=== PATIENT | female | born 1955 | race Hispanic/Latino ===

== ENCOUNTER 2020-12-29 10:41 | Inpatient (IN) | payer MEDICARE ==
[~2020-12-29] VITALS: Ht 152.4 cm; Wt 110.9 kg
[2020-12-29 11:13] LABS: CREATININE 0.8 mg/dL (0.5-1.5); POTASSIUM 3.6 mmol/L (3.5-5.1)
[2020-12-29 11:18] LABS: ALBUMIN 2.8 g/dL (3.5-5.0); BILIRUBIN,TOTAL 0.4 mg/dL (0.2-1.0); TOTAL PROTEIN, SERUM 7.8 g/dL (6.0-8.3)
[2020-12-29 11:21] LABS: BASOPHILS % (AUTO) 0.5 % (0.0-5.0); HEMATOCRIT 41.1 % (36-48); LYMPHOCYTES % (AUTO) 25.4 % (21.0-51.0); MEAN CORPUSCULAR HGB CONC 32.8 g/dL (32.0-36.0); MEAN CORPUSCULAR VOLUME 82.2 fL (79-99); MONOCYTES % (AUTO) 10.8 % (3.0-13.0); NEUTROPHILS % (AUTO) 61.7 % (40.0-77.0); PLATELET COUNT (AUTO) 206 K/uL (130-400); RED CELL DISTRIBUTION WIDTH 15.1 % (11.0-15.5); WHITE BLOOD COUNT (AUTO) 6.3 K/uL (4.8-10.8)
[2020-12-29 11:22] LABS: ABG BASE EXCESS -4.7 mmol/L (-2.0-3.0); ABG HCO3 18.4 mmol/L (21.0-28.0); ABG OXYGEN SATURATION 80.3 % (95.0-99.0); ABG PCO2 29 mmHg (32-45)
[2020-12-29 11:25] LABS: CRP QUANTITATIVE 243.2 mg/L (0.00-9.0)
[2020-12-29] MEDS ORDERED: CEFTRIAXONE 1G VIAL 1 GM in 0.9%NACL 100ML 100 ML IV ONE (12:00)
[2020-12-29] MEDS ORDERED: SOLU-MEDROL 125MG VIAL IVP ONE (12:00)
[2020-12-29] MEDS ORDERED: CEFTRIAXONE 1G VIAL IVP SCH (12:30)
[2020-12-29] MEDS ORDERED: 0.9%NACL 50ML 50 ML IV ONE (12:36)
[2020-12-29] MEDS ORDERED: SODIUM BICARB 8.4% 50ML SYRINGE IVP ONE (12:41)
[2020-12-29] MEDS ORDERED: AMIODARONE 150MG VIAL IV ONE (12:41)
[2020-12-29] MEDS ORDERED: EPINEPHRINE 1MG SYG 10ML IVP ONE (12:41)
[2020-12-29] MEDS: ALBUTEROL INHALER 90MCG/INH IH SCH ×2 (12:48→19:00)
[2020-12-29 13:40] LABS: CRP QUANTITATIVE 208.2 mg/L (0.00-9.0)
[2020-12-29] MEDS ORDERED: ENOXAPARIN SODIUM 40 MG/0.4 ML SYRINGE SQ SCH (14:04)
[2020-12-29] MEDS: INSULIN R PO SS1 SQ SCH ×2 (16:30→20:49)
[2020-12-29] MEDS ORDERED: SEMA3TAB PO (16:33)
[2020-12-29] MEDS ORDERED: LUTE1CAP6 PO (16:33)
[2020-12-29] MEDS ORDERED: [UNRECOGNIZED DRUG - CODE] PO (16:37)
[2020-12-29] MEDS ORDERED: MECO10005 PO (16:39)
[2020-12-29] MEDS ORDERED: ALBU8.5H8 IH (16:41)
[2020-12-29] MEDS ORDERED: CALC-28 PO (16:44)
[2020-12-29] MEDS ORDERED: EMPA10TA PO (16:45)
[2020-12-29] MEDS ORDERED: LEVO125C4 PO (16:46)
[2020-12-29] MEDS ORDERED: TAMO20TA4 (16:47)
[2020-12-29] MEDS ORDERED: OMEP40CA21 PO (16:48)
[2020-12-29] MEDS: DOXYCYCLINE HYCLATE 100 MG TABLET PO SCH (20:48)
[2020-12-29] MEDS ORDERED: SOLU-MEDROL 40MG VIAL IVP SCH (21:00)
[2020-12-29] MEDS: AZTREONAM 1 GM VIAL IVP SCH (21:19)
[2020-12-29 21:52] VITALS: BP 118/69
[2020-12-29] MEDS ORDERED: AEC81 PO (22:00)
[2020-12-29 23:19] VITALS: BP 124/67
[2020-12-30] VITALS (13 sets, daily range): BP systolic 106–146; BP diastolic 60–81
[2020-12-30] MEDS: ALBUTEROL INHALER 90MCG/INH IH SCH ×6 (01:18→18:36)
[2020-12-30] MEDS: AZTREONAM 1 GM VIAL IVP SCH ×3 (04:00→20:50)
[2020-12-30 04:40] LABS: BASOPHILS % (AUTO) 0.7 % (0.0-5.0); HEMATOCRIT 41.6 % (36-48); LYMPHOCYTES % (AUTO) 20.6 % (21.0-51.0); MEAN CORPUSCULAR HEMOGLOBIN 26.6 pg (27.0-33.0); MEAN CORPUSCULAR HGB CONC 32.7 g/dL (32.0-36.0); MEAN CORPUSCULAR VOLUME 81.4 fL (79-99); MONOCYTES % (AUTO) 6.7 % (3.0-13.0); NEUTROPHILS % (AUTO) 68.8 % (40.0-77.0); PLATELET COUNT (AUTO) 228 K/uL (130-400); RED BLOOD CELL COUNT(AUTO) 5.11 MIL/uL (4.00-5.50); WHITE BLOOD COUNT (AUTO) 5.5 K/uL (4.8-10.8)
[2020-12-30 04:47] LABS: CREATININE 0.9 mg/dL (0.5-1.5); MAGNESIUM 2.1 mg/dL (1.80-2.40); POTASSIUM 3.8 mmol/L (3.5-5.1)
[2020-12-30 04:49] LABS: HEMOGLOBIN A1C 9.4 % (4.0-6.0)
[2020-12-30] MEDS: INSULIN R PO SS1 SQ SCH ×4 (06:26→21:00)
[2020-12-30] MEDS ORDERED: IOHEXOL-350 75 ML VIAL IV ONE (08:15)
[2020-12-30] MEDS: SODIUM BICARB 50MEQ 50ML VIAL IV SCH (08:44)
[2020-12-30] MEDS: LEVOTHYROXINE 125 MCG TABLET PO SCH (08:45)
[2020-12-30] MEDS: DOXYCYCLINE HYCLATE 100 MG TABLET PO SCH ×2 (08:45→20:52)
[2020-12-30] MEDS: ASPIRIN 81 MG EC TAB PO SCH (08:45)
[2020-12-30] MEDS: ENOXAPARIN SODIUM 40 MG/0.4 ML SYRINGE SQ SCH ×2 (08:46→20:54)
[2020-12-30] MEDS ORDERED: SOLU-MEDROL 125MG VIAL IVP SCH (09:00)
[2020-12-30] MEDS ORDERED: FAMOTIDINE 20MG VIAL IV SCH (09:00)
[2020-12-30 09:59] LABS: ABG BASE EXCESS -7.9 mmol/L (-2.0-3.0); ABG HCO3 15.7 mmol/L (21.0-28.0); ABG OXYGEN SATURATION 86.4 % (95.0-99.0); ABG PCO2 28 mmHg (32-45)
[2020-12-30] MEDS ORDERED: SIMV-46 PO (11:14)
[2020-12-30] MEDS ORDERED: SERT-439 PO (11:14)
[2020-12-30] MEDS ORDERED: MONT-39 PO (11:14)
[2020-12-30] MEDS ORDERED: LISI10TA24 PO (11:14)
[2020-12-30] MEDS ORDERED: CLON0.1T PO (11:14)
[2020-12-30] MEDS ORDERED: GEMF600T89 PO (11:14)
[2020-12-30] MEDS ORDERED: HYDR50TA PO (11:14)
[2020-12-30] MEDS ORDERED: PHARMACY COMMUNICATION**TOCI MISC SCH (12:30)
[2020-12-30 12:51] LABS: POTASSIUM 3.8 mmol/L (3.5-5.1)
[2020-12-30] MEDS ORDERED: SODIUM BICARB 50MEQ 50ML VIAL IV STA (14:15)
[2020-12-30] MEDS: BARICITINIB (EUA) 2 MG TABLET PO SCH (14:33)
[2020-12-30] MEDS: FAMOTIDINE 20MG TAB PO SCH (14:33)
[2020-12-30] MEDS ORDERED: GUAIFENESIN-DM 200/20 MG 10 ML PO PRN (16:00)
[2020-12-30] MEDS ORDERED: BENZONATATE 100 MG CAPSULE PO SCH (16:00)
[2020-12-30] MEDS: INSULIN REGULAR, HUMAN 3ML 100 UNIT in 0.9%NACL 100ML 99 ML IV PRN ×6 (16:43→18:37)
[2020-12-30 17:54] LABS: POTASSIUM 3.8 mmol/L (3.5-5.1)
[2020-12-30] MEDS: CLONIDINE HCL 0.1 MG TABLET PO SCH (20:52)
[2020-12-30] MEDS: GEMFIBROZIL 600 MG TABLET PO SCH (20:52)
[2020-12-30] MEDS: SIMVASTATIN 20 MG TABLET PO SCH (20:53)
[2020-12-30] MEDS: INSULIN GLARGINE 100 UNITS/ML 10 ML VIAL SQ SCH (21:00)
[2020-12-30] MEDS ORDERED: METOCLOPRAMIDE 10 MG/2 ML VIAL ONE (21:53)
[2020-12-30] MEDS: BENZONATATE 100 MG CAPSULE PO SCH (23:11)
[2020-12-30] MEDS: SOLU-MEDROL 125MG VIAL IVP SCH (23:11)
[2020-12-30] MEDS: METOCLOPRAMIDE 10 MG/2 ML VIAL IVP SCH (23:18)
[2020-12-31] VITALS (15 sets, daily range): BP systolic 109–159; BP diastolic 57–89
[2020-12-31] MEDS ORDERED: METOCLOPRAMIDE 10 MG/2 ML VIAL IVP SCH
[2020-12-31 01:05] LABS: CREATININE 0.9 mg/dL (0.5-1.5); POTASSIUM 3.5 mmol/L (3.5-5.1)
[2020-12-31] MEDS: AZTREONAM 1 GM VIAL IVP SCH ×3 (04:07→20:06)
[2020-12-31 05:49] LABS: BASOPHILS % (AUTO) 0.3 % (0.0-5.0); HEMATOCRIT 39.8 % (36-48); LYMPHOCYTES % (AUTO) 12.5 % (21.0-51.0); MEAN CORPUSCULAR HEMOGLOBIN 26.8 pg (27.0-33.0); MEAN CORPUSCULAR HGB CONC 33.2 g/dL (32.0-36.0); MEAN CORPUSCULAR VOLUME 80.9 fL (79-99); NEUTROPHILS % (AUTO) 78.4 % (40.0-77.0); PLATELET COUNT (AUTO) 282 K/uL (130-400); RED BLOOD CELL COUNT(AUTO) 4.92 MIL/uL (4.00-5.50); WHITE BLOOD COUNT (AUTO) 10.8 K/uL (4.8-10.8)
[2020-12-31 06:07] LABS: ALBUMIN 2.4 g/dL (3.5-5.0); BILIRUBIN,TOTAL 0.4 mg/dL (0.2-1.0); CREATININE 0.8 mg/dL (0.5-1.5); CRP QUANTITATIVE 115.3 mg/L (0.00-9.0); POTASSIUM 3.8 mmol/L (3.5-5.1); TOTAL PROTEIN, SERUM 7.3 g/dL (6.0-8.3)
[2020-12-31] MEDS: BENZONATATE 100 MG CAPSULE PO SCH ×3 (06:18→20:06)
[2020-12-31] MEDS: ALBUTEROL INHALER 90MCG/INH IH SCH ×4 (06:18→18:00)
[2020-12-31] MEDS: SOLU-MEDROL 125MG VIAL IVP SCH ×2 (06:19→13:04)
[2020-12-31] MEDS: INSULIN R PO SS1 SQ SCH (06:19)
[2020-12-31] MEDS: METOCLOPRAMIDE 10 MG/2 ML VIAL IVP SCH ×3 (06:19→17:41)
[2020-12-31] MEDS: INSULIN GLARGINE 100 UNITS/ML 10 ML VIAL SQ SCH (06:20)
[2020-12-31] MEDS: SODIUM BICARB 50MEQ 50ML VIAL IV SCH (06:53)
[2020-12-31] MEDS: DOXYCYCLINE HYCLATE 100 MG TABLET PO SCH ×2 (08:01→20:07)
[2020-12-31] MEDS: SERTRALINE HCL 50 MG TABLET PO SCH (08:01)
[2020-12-31] MEDS: LEVOTHYROXINE 125 MCG TABLET PO SCH (08:01)
[2020-12-31] MEDS: ASPIRIN 81 MG EC TAB PO SCH (08:01)
[2020-12-31] MEDS: LISINOPRIL 10 MG TABLET PO SCH (08:01)
[2020-12-31] MEDS: MONTELUKAST SODIUM 10 MG TAB PO SCH (08:01)
[2020-12-31] MEDS: METOPROLOL TARTRATE 1 MG/ML 5ML VIAL IV PRN ×2 (08:02→11:55)
[2020-12-31] MEDS: FAMOTIDINE 20MG TAB PO SCH (08:02)
[2020-12-31] MEDS: CLONIDINE HCL 0.1 MG TABLET PO SCH ×2 (08:02→20:07)
[2020-12-31] MEDS: ENOXAPARIN SODIUM 40 MG/0.4 ML SYRINGE SQ SCH ×2 (08:02→20:08)
[2020-12-31] MEDS: BARICITINIB (EUA) 2 MG TABLET PO SCH (08:25)
[2020-12-31] MEDS: GEMFIBROZIL 600 MG TABLET PO SCH ×2 (08:25→20:08)
[2020-12-31] MEDS ORDERED: INSULIN HUMULIN R 100 UNIT/ML 3ML SQ SCH (11:30)
[2020-12-31 12:12] LABS: CREATININE 0.8 mg/dL (0.5-1.5); POTASSIUM 3.6 mmol/L (3.5-5.1)
[2020-12-31] MEDS: DIAZEPAM 5 MG TABLET PO PRN (15:03)
[2020-12-31] MEDS ORDERED: INSULIN GLARGINE 100 UNITS/ML 10 ML VIAL SQ SCH (16:30)
[2020-12-31 18:22] LABS: CREATININE 0.8 mg/dL (0.5-1.5)
[2020-12-31] MEDS: SIMVASTATIN 20 MG TABLET PO SCH (20:07)
[2020-12-31] MEDS ORDERED: SOLU-MEDROL 40MG VIAL IVP SCH (21:00)
[2021-01-01] VITALS (44 sets, daily range): BP systolic 64–157; BP diastolic 26–117
[2021-01-01] MEDS: METOCLOPRAMIDE 10 MG/2 ML VIAL IVP SCH ×4 (00:33→17:55)
[2021-01-01] MEDS: ALBUTEROL INHALER 90MCG/INH IH SCH ×4 (00:33→17:51)
[2021-01-01] MEDS: DIAZEPAM 5 MG TABLET PO PRN (01:02)
[2021-01-01] MEDS ORDERED: MIDAZOLAM HCL 1 MG/ML 2ML VIAL ONE (02:20)
[2021-01-01] MEDS ORDERED: FENTANYL CITRATE PF 50 MCG/1 ML 5ML AMP IV ONE (02:23)
[2021-01-01] MEDS ORDERED: FENTANYL CITRATE PF 50 MCG/1 ML 2ML VIAL ONE (02:25)
[2021-01-01] MEDS ORDERED: AMIODARONE 150MG VIAL ONE ×2 (02:27→04:48)
[2021-01-01] MEDS ORDERED: AMIODARONE 900MG VIAL IV ONE (02:28)
[2021-01-01 02:41] LABS: ABG BASE EXCESS -1.5 mmol/L (-2.0-3.0); ABG HCO3 24.3 mmol/L (21.0-28.0); ABG PCO2 45 mmHg (32-45)
[2021-01-01 02:53] LABS: BASOPHILS % (AUTO) 0.5 % (0.0-5.0); HEMATOCRIT 42.4 % (36-48); LYMPHOCYTES % (AUTO) 29.4 % (21.0-51.0); MEAN CORPUSCULAR HEMOGLOBIN 27.1 pg (27.0-33.0); MEAN CORPUSCULAR HGB CONC 32.5 g/dL (32.0-36.0); MEAN CORPUSCULAR VOLUME 83.1 fL (79-99); MONOCYTES % (AUTO) 7.2 % (3.0-13.0); NEUTROPHILS % (AUTO) 59.3 % (40.0-77.0); PLATELET COUNT (AUTO) 341 K/uL (130-400); WHITE BLOOD COUNT (AUTO) 24.2 K/uL (4.8-10.8)
[2021-01-01] MEDS ORDERED: AMIODARONE 900MG VIAL 150 MG in DEXTROSE 5%-WATER 100 ML IV SCH (03:00)
[2021-01-01] MEDS ORDERED: AMIODARONE 900MG VIAL 900 MG in DEXTROSE 5%-WATER 500 ML IV SCH (03:00)
[2021-01-01] MEDS ORDERED: FENTANYL 2500MCG+NS 250ML 250 ML IV ONE (03:02)
[2021-01-01] MEDS ORDERED: NOREPINEPHRIN 4MG/NS 250ML 250 ML IV ONE (03:08)
[2021-01-01 03:20] LABS: ALBUMIN 2.5 g/dL (3.5-5.0); BILIRUBIN,TOTAL 0.5 mg/dL (0.2-1.0); CREATININE 1.2 mg/dL (0.5-1.5); CRP QUANTITATIVE 66.3 mg/L (0.00-9.0); MAGNESIUM 2.4 mg/dL (1.80-2.40); PHOSPHORUS 3.5 mg/dL (2.5-4.9); POTASSIUM 3.6 mmol/L (3.5-5.1); TOTAL PROTEIN, SERUM 7.1 g/dL (6.0-8.3)
[2021-01-01] MEDS: AZTREONAM 1 GM VIAL IVP SCH ×3 (04:00→21:06)
[2021-01-01] MEDS ORDERED: DOPAMINE HCL 400 MG/D5%-WATER 250 ML IV ONE (05:43)
[2021-01-01] MEDS ORDERED: DOPAMINE 800MG/D5 250ML 250 ML IV ONE (05:44)
[2021-01-01] MEDS ORDERED: PHENYLEPHRINE HCL 10 MG/ML 1ML VIAL IV ONE (05:50)
[2021-01-01] MEDS ORDERED: NOREPINEPHRINE BITARTRATE 1 MG/1 ML ML IV ONE (05:51)
[2021-01-01] MEDS ORDERED: VASOPRESSIN 20 UNITS/ML 1ML VIAL ONE (06:00)
[2021-01-01] MEDS: BENZONATATE 100 MG CAPSULE PO SCH ×3 (06:00→22:00)
[2021-01-01] MEDS ORDERED: 0.9%NACL 100ML 100 ML ONE (06:01)
[2021-01-01 06:18] LABS: HEMATOCRIT 38.9 % (36-48); MEAN CORPUSCULAR HEMOGLOBIN 26.9 pg (27.0-33.0); MEAN CORPUSCULAR HGB CONC 30.3 g/dL (32.0-36.0); MEAN CORPUSCULAR VOLUME 88.6 fL (79-99); NUCLEATED RED BLOOD CELLS 0.1 % (0.0-0.19); PLATELET COUNT (AUTO) 255 K/uL (130-400); RED BLOOD CELL COUNT(AUTO) 4.39 MIL/uL (4.00-5.50); RED CELL DISTRIBUTION WIDTH 15.7 % (11.0-15.5); WHITE BLOOD COUNT (AUTO) 22.2 K/uL (4.8-10.8)
[2021-01-01 06:41] LABS: ALBUMIN 1.9 g/dL (3.5-5.0); BILIRUBIN,TOTAL 0.8 mg/dL (0.2-1.0); CREATININE 1.2 mg/dL (0.5-1.5); POTASSIUM 4.1 mmol/L (3.5-5.1); TOTAL PROTEIN, SERUM 6.2 g/dL (6.0-8.3)
[2021-01-01] MEDS: NOREPINEPHRIN 4MG/NS 250ML 250 ML IV SCH ×4 (06:58→08:10)
[2021-01-01] MEDS: PHENYLEPHRINE HCL 50 MG in 0.9% NACL 250ML 245 ML IV PRN ×6 (08:13→23:32)
[2021-01-01] MEDS: DOXYCYCLINE HYCLATE 100 MG TABLET PO SCH ×2 (08:32→21:16)
[2021-01-01] MEDS: ASPIRIN 81 MG EC TAB PO SCH (08:32)
[2021-01-01] MEDS: GEMFIBROZIL 600 MG TABLET PO SCH ×2 (08:32→21:39)
[2021-01-01] MEDS: MONTELUKAST SODIUM 10 MG TAB PO SCH (08:32)
[2021-01-01] MEDS: BARICITINIB (EUA) 2 MG TABLET PO SCH (08:32)
[2021-01-01] MEDS: SERTRALINE HCL 50 MG TABLET PO SCH (08:33)
[2021-01-01] MEDS: FAMOTIDINE 20MG TAB PO SCH (08:33)
[2021-01-01] MEDS: LEVOTHYROXINE 125 MCG TABLET PO SCH (08:33)
[2021-01-01] MEDS: LISINOPRIL 10 MG TABLET PO SCH (08:37)
[2021-01-01] MEDS: CLONIDINE HCL 0.1 MG TABLET PO SCH ×2 (08:37→21:00)
[2021-01-01] MEDS: INSULIN GLARGINE 100 UNITS/ML 10 ML VIAL SQ SCH ×2 (08:37→16:26)
[2021-01-01] MEDS: ENOXAPARIN SODIUM 40 MG/0.4 ML SYRINGE SQ SCH ×2 (08:38→21:06)
[2021-01-01] MEDS: SODIUM BICARB 50MEQ 50ML VIAL IV SCH (08:57)
[2021-01-01] MEDS ORDERED: METOPROLOL TARTRATE 25 MG TAB PO SCH (09:00)
[2021-01-01] MEDS ORDERED: PHARMACY COMMUNICATION MISC SCH ×3 (09:00→13:00)
[2021-01-01] MEDS: NOREPINEPHRINE BITARTRATE 32 MG in 0.9% NACL 250ML 250 ML IV SCH (10:04)
[2021-01-01] MEDS ORDERED: SOLU-MEDROL 125MG VIAL IM ONE (10:30)
[2021-01-01] MEDS: VASOPRESSIN 20 UNITS in 0.9%NACL 100ML 100 ML IV SCH ×2 (10:44→21:09)
[2021-01-01] MEDS ORDERED: LACTATED RINGERS 1000ML 2,000 ML IV ONE (11:15)
[2021-01-01] MEDS: LACTATED RINGERS 1000ML 1,500 ML IV SCH ×2 (11:30→11:54)
[2021-01-01] MEDS: LACTATED RINGERS 1000ML 1,365 ML IV SCH (11:53)
[2021-01-01] MEDS: INSULIN REGULAR, HUMAN 3ML 100 UNIT in 0.9%NACL 100ML 99 ML IV SCH ×2 (11:55)
[2021-01-01 12:22] LABS: ABG BASE EXCESS -16.6 mmol/L (-2.0-3.0); ABG HCO3 11.3 mmol/L (21.0-28.0); ABG OXYGEN SATURATION 99.2 % (95.0-99.0); ABG PCO2 34 mmHg (32-45)
[2021-01-01] MEDS ORDERED: SODIUM BICARB 50MEQ 50ML VIAL IV SCH (13:00)
[2021-01-01] MEDS: SODIUM BICARB 50MEQ 50ML VIAL 150 MEQ in DEXTROSE 5%-WATER 1,000 ML IV SCH ×2 (13:06→21:16)
[2021-01-01 13:48] LABS: CREATININE 1.7 mg/dL (0.5-1.5); POTASSIUM 3.3 mmol/L (3.5-5.1)
[2021-01-01 14:32] LABS: ABG BASE EXCESS -3.4 mmol/L (-2.0-3.0); ABG HCO3 18.8 mmol/L (21.0-28.0); ABG OXYGEN SATURATION 98.1 % (95.0-99.0); ABG PCO2 27 mmHg (32-45)
[2021-01-01] MEDS ORDERED: LACTATED RINGERS 1000ML 909 ML IV ONE (15:00)
[2021-01-01] MEDS ORDERED: AMIODARONE 150MG VIAL 150 MG in DEXTROSE 5%-WATER 100 ML IV SCH (15:00)
[2021-01-01] MEDS: PROPOFOL 1000 MG/100 ML 100 ML IV SCH ×2 (16:30→23:31)
[2021-01-01 18:23] LABS: CREATININE 1.7 mg/dL (0.5-1.5); MAGNESIUM 1.7 mg/dL (1.80-2.40)
[2021-01-01 18:25] LABS: POTASSIUM 2.9 mmol/L (3.5-5.1)
[2021-01-01] MEDS: POTASSIUM CHLORIDE 20MEQ/100ML 100 ML IV PRN ×3 (18:49→22:51)
[2021-01-01] MEDS: MAGNESIUM 2GM PREMIX 50ML 50 ML IV PRN (18:50)
[2021-01-01] MEDS: SOLU-MEDROL 40MG VIAL IVP SCH (21:07)
[2021-01-01] MEDS: SIMVASTATIN 20 MG TABLET PO SCH (21:15)
[2021-01-01 21:40] LABS: CREATININE 1.5 mg/dL (0.5-1.5); MAGNESIUM 2.3 mg/dL (1.80-2.40)
[2021-01-01 21:44] LABS: POTASSIUM 2.9 mmol/L (3.5-5.1)
[2021-01-01] MEDS ORDERED: ASPIRIN 325MG TAB PO ONE (23:00)
[2021-01-01] MEDS: D5W-1/2 NS/20MEQ KCL 1,000 ML IV SCH (23:00)
[2021-01-02] VITALS (36 sets, daily range): BP systolic 91–134; BP diastolic 59–91
[2021-01-02] MEDS: METOPROLOL TARTRATE 25 MG TAB PO SCH ×3 (00:30→11:36)
[2021-01-02] MEDS: METOCLOPRAMIDE 10 MG/2 ML VIAL IVP SCH ×4 (00:33→17:08)
[2021-01-02] MEDS: POTASSIUM CHLORIDE 20MEQ/100ML 100 ML IV PRN ×4 (00:33→09:39)
[2021-01-02] MEDS: NOREPINEPHRINE BITARTRATE 32 MG in 0.9% NACL 250ML 250 ML IV SCH (00:36)
[2021-01-02] MEDS ORDERED: METOPROLOL TARTRATE 25 MG TAB ONE (00:52)
[2021-01-02] MEDS ORDERED: ASPIRIN 325MG TAB ONE (00:52)
[2021-01-02 01:20] LABS: HEMATOCRIT 40.3 % (36-48); MEAN CORPUSCULAR HGB CONC 33.7 g/dL (32.0-36.0); MEAN CORPUSCULAR VOLUME 80.1 fL (79-99); NUCLEATED RED BLOOD CELLS 0.2 % (0.0-0.19); RED BLOOD CELL COUNT(AUTO) 5.03 MIL/uL (4.00-5.50); RED CELL DISTRIBUTION WIDTH 15.3 % (11.0-15.5); WHITE BLOOD COUNT (AUTO) 25.9 K/uL (4.8-10.8)
[2021-01-02 01:32] LABS: CREATININE 1.4 mg/dL (0.5-1.5); MAGNESIUM 2.2 mg/dL (1.80-2.40); POTASSIUM 3.9 mmol/L (3.5-5.1)
[2021-01-02 01:53] LABS: APPEARANCE,URINE Cloudy (CLEAR); BILIRUBIN,URINE Negative (NEGATIVE); COLOR,URINE Yellow (YELLOW); GLUCOSE, URINE (UA) >=1000 mg/dL (NEGATIVE); KETONES,URINE Trace mg/dL (NEGATIVE); LEUKOCYTE ESTERASE ,URINE Negative (NEGATIVE); NITRATE,URINE Negative (NEGATIVE); OCCULT BLOOD,URINE Moderate (NEGATIVE); PROTEIN,URINE POS 1+ mg/dL (NEGATIVE); UROBILINOGEN,URINE 0.2 mg/dL (0.2-1.0)
[2021-01-02 02:02] LABS: BACTERIA,URINE Rare /HPF (None Seen); SQUAMOUS EPITHELIAL CELL,UR Rare /HPF (0-2); WBC,URINE 0-1 /HPF (0-1); YEAST,URINE BUDDING Rare /HPF (None Seen)
[2021-01-02] MEDS: ALBUTEROL INHALER 90MCG/INH IH SCH ×5 (03:19→21:46)
[2021-01-02] MEDS: AZTREONAM 1 GM VIAL IVP SCH ×3 (03:28→20:17)
[2021-01-02] MEDS: PHENYLEPHRINE HCL 50 MG in 0.9% NACL 250ML 245 ML IV PRN ×4 (03:54→16:52)
[2021-01-02] MEDS: SODIUM BICARB 50MEQ 50ML VIAL 150 MEQ in DEXTROSE 5%-WATER 1,000 ML IV SCH (04:23)
[2021-01-02] MEDS: PROPOFOL 1000 MG/100 ML 100 ML IV SCH ×2 (04:49→08:59)
[2021-01-02 04:54] LABS: BASOPHILS % (AUTO) 0.6 % (0.0-5.0); EOSINOPHILS % (AUTO) 0.4 % (0.0-8.0); HEMATOCRIT 39.7 % (36-48); LYMPHOCYTES % (AUTO) 8.4 % (21.0-51.0); MEAN CORPUSCULAR HEMOGLOBIN 26.8 pg (27.0-33.0); MEAN CORPUSCULAR HGB CONC 33.5 g/dL (32.0-36.0); MEAN CORPUSCULAR VOLUME 79.9 fL (79-99); MONOCYTES % (AUTO) 3.3 % (3.0-13.0); NUCLEATED RED BLOOD CELLS 0.2 % (0.0-0.19); PLATELET COUNT (AUTO) 389 K/uL (130-400); RED BLOOD CELL COUNT(AUTO) 4.97 MIL/uL (4.00-5.50); RED CELL DISTRIBUTION WIDTH 15.2 % (11.0-15.5); WHITE BLOOD COUNT (AUTO) 22.7 K/uL (4.8-10.8)
[2021-01-02 05:25] LABS: ALBUMIN 1.9 g/dL (3.5-5.0); BILIRUBIN,TOTAL 0.8 mg/dL (0.2-1.0); CREATININE 1.3 mg/dL (0.5-1.5); POTASSIUM 3.1 mmol/L (3.5-5.1)
[2021-01-02 05:29] LABS: ABG BASE EXCESS 9.7 mmol/L (-2.0-3.0); ABG HCO3 32.1 mmol/L (21.0-28.0); ABG OXYGEN SATURATION 89.1 % (95.0-99.0); ABG PCO2 36 mmHg (32-45)
[2021-01-02] MEDS: BENZONATATE 100 MG CAPSULE PO SCH ×4 (06:00→21:47)
[2021-01-02] MEDS: VASOPRESSIN 20 UNITS in 0.9%NACL 100ML 100 ML IV SCH ×2 (06:23→13:58)
[2021-01-02] MEDS: CLONIDINE HCL 0.1 MG TABLET PO SCH ×2 (07:26→20:18)
[2021-01-02] MEDS: ASPIRIN 81 MG EC TAB PO SCH ×2 (07:26→08:03)
[2021-01-02] MEDS: LISINOPRIL 10 MG TABLET PO SCH (07:30)
[2021-01-02] MEDS: LACTATED RINGERS 1000ML 1,365 ML IV SCH (07:31)
[2021-01-02] MEDS: SOLU-MEDROL 40MG VIAL IVP SCH ×2 (08:03→20:17)
[2021-01-02] MEDS: LEVOTHYROXINE 125 MCG TABLET PO SCH (08:03)
[2021-01-02] MEDS: SERTRALINE HCL 50 MG TABLET PO SCH (08:03)
[2021-01-02] MEDS: DOXYCYCLINE HYCLATE 100 MG TABLET PO SCH ×2 (08:03→20:17)
[2021-01-02] MEDS: MONTELUKAST SODIUM 10 MG TAB PO SCH (08:03)
[2021-01-02] MEDS: FAMOTIDINE 20MG TAB PO SCH (08:03)
[2021-01-02] MEDS: FENOFIBRATE NANOCRYSTALLIZED 145 MG TAB PO SCH (08:03)
[2021-01-02] MEDS: ASPIRIN 81MG CHEW TAB PO SCH (08:04)
[2021-01-02] MEDS: GEMFIBROZIL 600 MG TABLET PO SCH ×2 (08:04→20:17)
[2021-01-02] MEDS: ENOXAPARIN SODIUM 100 MG/1 ML SQ SCH (08:04)
[2021-01-02] MEDS: INSULIN GLARGINE 100 UNITS/ML 10 ML VIAL SQ SCH ×2 (08:05→16:28)
[2021-01-02] MEDS: BARICITINIB (EUA) 2 MG TABLET PO SCH (08:08)
[2021-01-02] MEDS: D5W-1/2 NS/20MEQ KCL 1,000 ML IV SCH (09:09)
[2021-01-02] MEDS: INSULIN REGULAR, HUMAN 3ML 100 UNIT in 0.9%NACL 100ML 99 ML IV SCH ×2 (09:12)
[2021-01-02 09:27] LABS: CREATININE 1.2 mg/dL (0.5-1.5); MAGNESIUM 1.9 mg/dL (1.80-2.40); POTASSIUM 3.7 mmol/L (3.5-5.1)
[2021-01-02] MEDS ORDERED: POTASSIUM PHOS 15 mMOL+NS250ML 250 ML IV PRN (09:30)
[2021-01-02] MEDS: MAGNESIUM 2GM PREMIX 50ML 50 ML IV PRN (09:39)
[2021-01-02 12:43] LABS: ABG BASE EXCESS 0.3 mmol/L (-2.0-3.0); ABG HCO3 22.4 mmol/L (21.0-28.0); ABG OXYGEN SATURATION 96.8 % (95.0-99.0); ABG PCO2 29 mmHg (32-45)
[2021-01-02 14:25] LABS: CREATININE 1.4 mg/dL (0.5-1.5); MAGNESIUM 2.7 mg/dL (1.80-2.40); POTASSIUM 4.6 mmol/L (3.5-5.1)
[2021-01-02] MEDS ORDERED: MIDAZOLAM 100MG-0.9% NS 100ML 100ML BAG IV ONE (14:30)
[2021-01-02] MEDS ORDERED: FENTANYL CITRATE PF 0.05 MG/ML 1,000 MCG in 0.9%NACL 100ML 100 ML IV PRN (16:00)
[2021-01-02] MEDS: MIDAZOLAM 100MG-0.9% NS 100ML 100 ML IV SCH (16:10)
[2021-01-02] MEDS: DEXTROSE 5 %-0.45 % NACL 1,000 ML IV SCH (17:08)
[2021-01-02] MEDS: FENTANYL 2500MCG+NS 250ML 250 ML IV SCH (17:09)
[2021-01-02 17:20] LABS: CREATININE 1.4 mg/dL (0.5-1.5); MAGNESIUM 2.6 mg/dL (1.80-2.40); POTASSIUM 4.3 mmol/L (3.5-5.1)
[2021-01-02] MEDS: SIMVASTATIN 20 MG TABLET PO SCH (20:17)
[2021-01-02] MEDS: MIDODRINE HCL 5 MG TABLET PO SCH (20:17)
[2021-01-02] MEDS: AMIODARONE 200 MG TABLET PO SCH ×2 (20:20→21:00)
[2021-01-02 21:03] LABS: CREATININE 1.5 mg/dL (0.5-1.5); MAGNESIUM 2.5 mg/dL (1.80-2.40); POTASSIUM 4.7 mmol/L (3.5-5.1)
[2021-01-03] VITALS (65 sets, daily range): BP systolic 95–147; BP diastolic 46–119
[2021-01-03] MEDS: METOCLOPRAMIDE 10 MG/2 ML VIAL IVP SCH ×3 (00:38→11:47)
[2021-01-03] MEDS: VASOPRESSIN 20 UNITS in 0.9%NACL 100ML 100 ML IV SCH ×4 (00:51→17:32)
[2021-01-03] MEDS: NOREPINEPHRINE BITARTRATE 32 MG in 0.9% NACL 250ML 250 ML IV SCH (01:03)
[2021-01-03] MEDS ORDERED: ACETAMINOPHEN 650 MG/20.3 ML UDCUP ONE (01:27)
[2021-01-03] MEDS ORDERED: LACTATED RINGERS 1000ML 1,000 ML IV SCH (01:30)
[2021-01-03] MEDS ORDERED: FUROSEMIDE 40MG VIAL IV STA (03:09)
[2021-01-03] MEDS: DEXTROSE 5 %-0.45 % NACL 1,000 ML IV SCH ×2 (03:19→11:29)
[2021-01-03] MEDS ORDERED: FUROSEMIDE 40MG VIAL ONE (03:22)
[2021-01-03] MEDS: AZTREONAM 1 GM VIAL IVP SCH ×3 (03:53→21:30)
[2021-01-03] MEDS: ALBUTEROL INHALER 90MCG/INH IH SCH ×3 (03:53→16:07)
[2021-01-03 05:07] LABS: ABG BASE EXCESS -5.3 mmol/L (-2.0-3.0); ABG HCO3 19.7 mmol/L (21.0-28.0); ABG OXYGEN SATURATION 92.6 % (95.0-99.0); ABG PCO2 37 mmHg (32-45)
[2021-01-03] MEDS: ACETAMINOPHEN 650 MG/20.3 ML UDCUP PO PRN (05:17)
[2021-01-03] MEDS ORDERED: VANCOMYCIN 500MG VIAL IVPB STA (05:18)
[2021-01-03] MEDS ORDERED: SODIUM BICARB 50MEQ 50ML VIAL 50 ML ONE (05:29)
[2021-01-03] MEDS ORDERED: 0.9%NACL 100ML IVPB SCH (05:30)
[2021-01-03] MEDS: INSULIN GLARGINE 100 UNITS/ML 10 ML VIAL SQ SCH ×2 (05:58→16:30)
[2021-01-03] MEDS ORDERED: VANCOMYCIN 500MG+NS 100ML 100 ML IV ONE (06:36)
[2021-01-03] MEDS ORDERED: SODIUM BICARB 50MEQ 50ML VIAL IV SCH (06:53)
[2021-01-03] MEDS ORDERED: CEFEPIME HCL 2 GM VIAL IVP SCH (06:54)
[2021-01-03] MEDS: FUROSEMIDE 40MG VIAL IV SCH ×2 (07:08→14:04)
[2021-01-03] MEDS: SOLU-MEDROL 125MG VIAL IVP SCH ×2 (07:08→14:04)
[2021-01-03] MEDS: FENTANYL 2500MCG+NS 250ML 250 ML IV SCH ×2 (07:20→21:13)
[2021-01-03] MEDS: MIDAZOLAM 100MG-0.9% NS 100ML 100 ML IV SCH (07:21)
[2021-01-03] MEDS: PHENYLEPHRINE HCL 100 MG in 0.9% NACL 250ML 250 ML IV PRN ×2 (07:29→17:26)
[2021-01-03] MEDS: LISINOPRIL 10 MG TABLET PO SCH (07:59)
[2021-01-03] MEDS: CLONIDINE HCL 0.1 MG TABLET PO SCH ×2 (07:59→21:00)
[2021-01-03] MEDS ORDERED: VANCOMYCIN PROTOCOL PER PHARMACY IV SCH (08:00)
[2021-01-03] MEDS ORDERED: VANCOMYCIN 1.5GM/NS 250ML IV SCH ×2 (08:00)
[2021-01-03] MEDS: LACTATED RINGERS 1000ML 1,365 ML IV SCH (08:00)
[2021-01-03] MEDS ORDERED: COMPOUND IV REFRIGERATED 1 EACH IVSOLN MISC PRN (08:00)
[2021-01-03] MEDS: AMIODARONE 200 MG TABLET PO SCH ×2 (08:19→21:13)
[2021-01-03] MEDS: LEVOTHYROXINE 125 MCG TABLET PO SCH (08:19)
[2021-01-03] MEDS: ASPIRIN 81MG CHEW TAB PO SCH (08:19)
[2021-01-03] MEDS: MONTELUKAST SODIUM 10 MG TAB PO SCH (08:19)
[2021-01-03] MEDS: ENOXAPARIN SODIUM 100 MG/1 ML SQ SCH (08:19)
[2021-01-03] MEDS: FENOFIBRATE NANOCRYSTALLIZED 145 MG TAB PO SCH (08:19)
[2021-01-03] MEDS: GEMFIBROZIL 600 MG TABLET PO SCH (08:19)
[2021-01-03] MEDS: SERTRALINE HCL 50 MG TABLET PO SCH (08:19)
[2021-01-03] MEDS: BARICITINIB (EUA) 2 MG TABLET PO SCH (08:20)
[2021-01-03] MEDS: DOXYCYCLINE HYCLATE 100 MG TABLET PO SCH (08:20)
[2021-01-03] MEDS: MIDODRINE HCL 5 MG TABLET PO SCH ×3 (08:20→21:13)
[2021-01-03] MEDS: FAMOTIDINE 20MG TAB PO SCH (08:20)
[2021-01-03 08:29] LABS: ALBUMIN 1.8 g/dL (3.5-5.0); BILIRUBIN,TOTAL 1.9 mg/dL (0.2-1.0); CREATININE 1.7 mg/dL (0.5-1.5); MAGNESIUM 2.4 mg/dL (1.80-2.40); TOTAL PROTEIN, SERUM 5.6 g/dL (6.0-8.3)
[2021-01-03 08:30] LABS: HEMATOCRIT 43.6 % (36-48); MEAN CORPUSCULAR HEMOGLOBIN 26.9 pg (27.0-33.0); RED BLOOD CELL COUNT(AUTO) 5.01 MIL/uL (4.00-5.50); RED CELL DISTRIBUTION WIDTH 16.7 % (11.0-15.5); WHITE BLOOD COUNT (AUTO) 22.3 K/uL (4.8-10.8)
[2021-01-03] MEDS ORDERED: GLUCAGON 1MG KIT 1 MG ML IM PRN (09:00)
[2021-01-03] MEDS ORDERED: POLYETHYLENE GLYCOL 3350 17 GM POWD.PACK PO SCH (09:30)
[2021-01-03] MEDS ORDERED: LACTULOSE 20 GM/30 ML UDCUP PO PRN (09:30)
[2021-01-03] MEDS: CALCIUM GLUC 1GM 1 GM in 0.9%NACL 100ML 100 ML IV SCH (09:33)
[2021-01-03] MEDS ORDERED: INSULIN HUMULIN R 100 UNIT/ML 3ML SQ SCH ×2 (11:30→12:00)
[2021-01-03] MEDS: INSULIN HUMULIN R 100 UNIT/ML 3ML SQ SCH ×4 (11:48→21:16)
[2021-01-03] MEDS: BENZONATATE 100 MG CAPSULE PO SCH ×2 (11:58→22:00)
[2021-01-03 13:49] LABS: CREATININE 1.7 mg/dL (0.5-1.5); MAGNESIUM 1.8 mg/dL (1.80-2.40); POTASSIUM 3.1 mmol/L (3.5-5.1)
[2021-01-03] MEDS: POTASSIUM CHLORIDE 20MEQ/100ML 100 ML IV PRN ×2 (14:04→15:03)
[2021-01-03] MEDS: MAGNESIUM 2GM PREMIX 50ML 50 ML IV PRN (14:05)
[2021-01-03] MEDS: SIMVASTATIN 20 MG TABLET PO SCH (21:14)
[2021-01-03] MEDS: 0.9%NACL 100ML 100 ML IV SCH ×2 (21:21→21:29)
[2021-01-03] MEDS: VANCOMYCIN 500MG+NS 100ML IVPB IV SCH (21:29)
[2021-01-04] VITALS (73 sets, daily range): BP systolic 74–128; BP diastolic 41–100
[2021-01-04] MEDS: INSULIN HUMULIN R 100 UNIT/ML 3ML SQ SCH ×6 (00:04→22:14)
[2021-01-04] MEDS: SOLU-MEDROL 125MG VIAL IVP SCH ×4 (00:09→22:15)
[2021-01-04 00:18] LABS: CREATININE 1.5 mg/dL (0.5-1.5); MAGNESIUM 2.2 mg/dL (1.80-2.40)
[2021-01-04 00:26] LABS: POTASSIUM 2.5 mmol/L (3.5-5.1)
[2021-01-04] MEDS: POTASSIUM CHLORIDE 20MEQ/100ML 100 ML IV PRN ×6 (00:29→20:18)
[2021-01-04] MEDS: VASOPRESSIN 20 UNITS in 0.9%NACL 100ML 100 ML IV SCH ×2 (02:36→10:20)
[2021-01-04] MEDS ORDERED: FUROSEMIDE 40MG VIAL IV SCH ×2 (02:56→21:00)
[2021-01-04 03:37] LABS: ABG BASE EXCESS 9.7 mmol/L (-2.0-3.0); ABG OXYGEN SATURATION 99.1 % (95.0-99.0); ABG PCO2 25 mmHg (32-45)
[2021-01-04] MEDS: AZTREONAM 1 GM VIAL IVP SCH ×3 (04:29→20:18)
[2021-01-04] MEDS: ALBUTEROL INHALER 90MCG/INH IH SCH ×5 (05:56→23:23)
[2021-01-04] MEDS: BENZONATATE 100 MG CAPSULE PO SCH ×3 (05:56→22:00)
[2021-01-04] MEDS: MIDAZOLAM 100MG-0.9% NS 100ML 100 ML IV SCH ×2 (06:18→22:23)
[2021-01-04] MEDS: INSULIN GLARGINE 100 UNITS/ML 10 ML VIAL SQ SCH ×2 (06:19→15:58)
[2021-01-04 06:58] LABS: HEMATOCRIT 37.4 % (36-48); MEAN CORPUSCULAR HEMOGLOBIN 27.2 pg (27.0-33.0); MEAN CORPUSCULAR HGB CONC 33.4 g/dL (32.0-36.0); MEAN CORPUSCULAR VOLUME 81.3 fL (79-99); NUCLEATED RED BLOOD CELLS 0.7 % (0.0-0.19); RED BLOOD CELL COUNT(AUTO) 4.6 MIL/uL (4.00-5.50); RED CELL DISTRIBUTION WIDTH 15.7 % (11.0-15.5); WHITE BLOOD COUNT (AUTO) 19.1 K/uL (4.8-10.8)
[2021-01-04 07:06] LABS: CREATININE 1.3 mg/dL (0.5-1.5); POTASSIUM 3.3 mmol/L (3.5-5.1)
[2021-01-04 07:53] LABS: ALBUMIN 1.8 g/dL (3.5-5.0); BILIRUBIN,DIRECT 1.2 mg/dL (0.0-0.3); BILIRUBIN,TOTAL 1.9 mg/dL (0.2-1.0); TOTAL PROTEIN, SERUM 5.3 g/dL (6.0-8.3)
[2021-01-04] MEDS: CLONIDINE HCL 0.1 MG TABLET PO SCH ×2 (09:00→20:29)
[2021-01-04] MEDS: POLYETHYLENE GLYCOL 3350 17 GM POWD.PACK PO SCH (09:00)
[2021-01-04] MEDS: 0.9%NACL 100ML 100 ML IV SCH ×2 (09:26→20:26)
[2021-01-04] MEDS: VANCOMYCIN 500MG+NS 100ML IVPB IV SCH ×2 (09:26→20:19)
[2021-01-04] MEDS: SERTRALINE HCL 50 MG TABLET PO SCH (09:26)
[2021-01-04] MEDS: BARICITINIB (EUA) 2 MG TABLET PO SCH (09:26)
[2021-01-04] MEDS: MIDODRINE HCL 5 MG TABLET PO SCH ×3 (09:27→20:28)
[2021-01-04] MEDS: FAMOTIDINE 20MG TAB PO SCH (09:27)
[2021-01-04] MEDS: MONTELUKAST SODIUM 10 MG TAB PO SCH (09:27)
[2021-01-04] MEDS: ASPIRIN 81MG CHEW TAB PO SCH (09:31)
[2021-01-04] MEDS: AMIODARONE 200 MG TABLET PO SCH ×2 (09:31→20:28)
[2021-01-04] MEDS: LEVOTHYROXINE 125 MCG TABLET PO SCH (09:31)
[2021-01-04] MEDS: ENOXAPARIN SODIUM 100 MG/1 ML SQ SCH (09:32)
[2021-01-04] MEDS: FENTANYL 2500MCG+NS 250ML 250 ML IV SCH ×2 (10:21→22:20)
[2021-01-04 11:03] LABS: ABG BASE EXCESS 12.6 mmol/L (-2.0-3.0); ABG HCO3 33.8 mmol/L (21.0-28.0); ABG PCO2 32 mmHg (32-45)
[2021-01-04 12:43] LABS: ABG OXYGEN SATURATION 97.1 % (95.0-99.0); ABG PCO2 32 mmHg (32-45)
[2021-01-04] MEDS: 0.9%NACL 1000ML 1,000 ML IV SCH (13:01)
[2021-01-04 13:17] LABS: AMYLASE 112 U/L (25-115); LIPASE 393 U/L (114-286)
[2021-01-04 14:30] LABS: CREATININE 1.3 mg/dL (0.5-1.5); MAGNESIUM 1.9 mg/dL (1.80-2.40)
[2021-01-04 14:33] LABS: POTASSIUM 2.9 mmol/L (3.5-5.1)
[2021-01-04] MEDS: PHENYLEPHRINE HCL 100 MG in 0.9% NACL 250ML 250 ML IV PRN (18:29)
[2021-01-04] MEDS ORDERED: POTASSIUM CHLORIDE 10% ELIXIR 20 MEQ/15 ML UDCUP ONE (20:16)
[2021-01-04 21:35] LABS: CREATININE 1.3 mg/dL (0.5-1.5); MAGNESIUM 1.9 mg/dL (1.80-2.40); POTASSIUM 3.4 mmol/L (3.5-5.1)
[2021-01-05] VITALS (89 sets, daily range): BP systolic 103–129; BP diastolic 63–83
[2021-01-05] MEDS: POTASSIUM CHLORIDE 20MEQ/100ML 100 ML IV PRN ×4 (00:18→20:47)
[2021-01-05] MEDS: INSULIN HUMULIN R 100 UNIT/ML 3ML SQ SCH ×7 (00:19→23:56)
[2021-01-05] MEDS: 0.9%NACL 1000ML 1,000 ML IV SCH (00:22)
[2021-01-05] MEDS: AZTREONAM 1 GM VIAL IVP SCH ×3 (03:27→19:17)
[2021-01-05] MEDS: BENZONATATE 100 MG CAPSULE PO SCH (04:33)
[2021-01-05] MEDS: ALBUTEROL INHALER 90MCG/INH IH SCH ×3 (04:33→17:41)
[2021-01-05] MEDS: SOLU-MEDROL 125MG VIAL IVP SCH ×3 (05:08→21:50)
[2021-01-05 05:37] LABS: HEMATOCRIT 35.6 % (36-48); MEAN CORPUSCULAR HEMOGLOBIN 26.7 pg (27.0-33.0); MEAN CORPUSCULAR HGB CONC 31.5 g/dL (32.0-36.0); NUCLEATED RED BLOOD CELLS 1.4 % (0.0-0.19); RED BLOOD CELL COUNT(AUTO) 4.19 MIL/uL (4.00-5.50); RED CELL DISTRIBUTION WIDTH 16.1 % (11.0-15.5); WHITE BLOOD COUNT (AUTO) 15.7 K/uL (4.8-10.8)
[2021-01-05 06:12] LABS: CREATININE 1.2 mg/dL (0.5-1.5); CRP QUANTITATIVE 59.2 mg/L (0.00-9.0); POTASSIUM 3.6 mmol/L (3.5-5.1)
[2021-01-05] MEDS: INSULIN GLARGINE 100 UNITS/ML 10 ML VIAL SQ SCH ×2 (06:25→15:36)
[2021-01-05] MEDS: CLONIDINE HCL 0.1 MG TABLET PO SCH ×2 (07:45→21:00)
[2021-01-05] MEDS: POLYETHYLENE GLYCOL 3350 17 GM POWD.PACK PO SCH (07:47)
[2021-01-05] MEDS: SERTRALINE HCL 50 MG TABLET PO SCH (08:03)
[2021-01-05] MEDS: AMIODARONE 200 MG TABLET PO SCH ×2 (08:03→20:50)
[2021-01-05] MEDS: ASPIRIN 81MG CHEW TAB PO SCH (08:03)
[2021-01-05] MEDS: FAMOTIDINE 20MG TAB PO SCH (08:03)
[2021-01-05] MEDS: BARICITINIB (EUA) 2 MG TABLET PO SCH (08:04)
[2021-01-05] MEDS: MONTELUKAST SODIUM 10 MG TAB PO SCH (08:04)
[2021-01-05] MEDS: ENOXAPARIN SODIUM 100 MG/1 ML SQ SCH (08:04)
[2021-01-05] MEDS: MIDODRINE HCL 5 MG TABLET PO SCH ×3 (08:11→20:50)
[2021-01-05] MEDS: LEVOTHYROXINE 125 MCG TABLET PO SCH (08:11)
[2021-01-05] MEDS ORDERED: 0.9%NACL 100ML 100 ML IV SCH (08:30)
[2021-01-05] MEDS: VANCOMYCIN 500MG+NS 100ML IVPB IV SCH ×2 (08:35→20:53)
[2021-01-05 08:48] LABS: ALBUMIN 1.7 g/dL (3.5-5.0); BILIRUBIN,DIRECT 1.1 mg/dL (0.0-0.3); BILIRUBIN,TOTAL 1.9 mg/dL (0.2-1.0); TOTAL PROTEIN, SERUM 4.9 g/dL (6.0-8.3)
[2021-01-05 10:15] LABS: ABG BASE EXCESS 10.8 mmol/L (-2.0-3.0); ABG HCO3 32.4 mmol/L (21.0-28.0); ABG OXYGEN SATURATION 95.3 % (95.0-99.0); ABG PCO2 33 mmHg (32-45)
[2021-01-05] MEDS: CHLORHEXIDINE GLUCONATE 473 ML MOUTHWASH MM SCH ×3 (10:21→21:47)
[2021-01-05] MEDS: ARTIFICIAL TEARS 3.5 GM OINTMENT OU SCH ×2 (10:21→21:46)
[2021-01-05] MEDS ORDERED: CALCIUM GLUC 1GM/10ML VIAL IV ONE (10:30)
[2021-01-05] MEDS: FENTANYL 2500MCG+NS 250ML 250 ML IV SCH ×2 (10:47→22:59)
[2021-01-05] MEDS ORDERED: CALCIUM GLUC 1GM 2 GM in 0.9%NACL 100ML 100 ML IV SCH (11:00)
[2021-01-05] MEDS: VASOPRESSIN 20 UNITS in 0.9%NACL 100ML 100 ML IV SCH (15:40)
[2021-01-05] MEDS: FLUCONAZOLE 400 MG/NS 200 ML 200 ML IV SCH (19:06)
[2021-01-05] MEDS: 0.9%NACL 100ML 100 ML IV SCH (20:53)
[2021-01-05] MEDS ORDERED: FUROSEMIDE 20MG VIAL IV ONE (21:00)
[2021-01-05] MEDS: METRONIDAZOLE 500MG/100ML BAG 100 ML IVPB SCH (21:45)
[2021-01-05] MEDS: MIDAZOLAM 100MG-0.9% NS 100ML 100 ML IV SCH (22:58)
[2021-01-06] VITALS (80 sets, daily range): BP systolic 99–130; BP diastolic 47–76
[2021-01-06] MEDS: AZTREONAM 1 GM VIAL IVP SCH ×3 (03:53→22:47)
[2021-01-06] MEDS: CHLORHEXIDINE GLUCONATE 473 ML MOUTHWASH MM SCH ×4 (03:56→22:43)
[2021-01-06] MEDS: INSULIN HUMULIN R 100 UNIT/ML 3ML SQ SCH ×5 (04:00→22:44)
[2021-01-06 04:39] LABS: ABG BASE EXCESS 7.6 mmol/L (-2.0-3.0); ABG HCO3 28.5 mmol/L (21.0-28.0); ABG OXYGEN SATURATION 97.4 % (95.0-99.0); ABG PCO2 29 mmHg (32-45)
[2021-01-06 04:43] LABS: ABG BASE EXCESS 7.5 mmol/L (-2.0-3.0); ABG HCO3 28.2 mmol/L (21.0-28.0); ABG PCO2 28 mmHg (32-45)
[2021-01-06 04:51] LABS: ALBUMIN 1.8 g/dL (3.5-5.0); BILIRUBIN,DIRECT 1.5 mg/dL (0.0-0.3); BILIRUBIN,TOTAL 2.4 mg/dL (0.2-1.0); CREATININE 1.1 mg/dL (0.5-1.5); POTASSIUM 3.8 mmol/L (3.5-5.1)
[2021-01-06] MEDS: ALBUTEROL INHALER 90MCG/INH IH SCH ×4 (05:19→17:31)
[2021-01-06] MEDS: SOLU-MEDROL 125MG VIAL IVP SCH ×3 (05:20→22:47)
[2021-01-06] MEDS: METRONIDAZOLE 500MG/100ML BAG 100 ML IVPB SCH ×3 (05:38→22:42)
[2021-01-06] MEDS: INSULIN GLARGINE 100 UNITS/ML 10 ML VIAL SQ SCH ×2 (06:18→16:57)
[2021-01-06] MEDS: ASPIRIN 81MG CHEW TAB PO SCH (08:00)
[2021-01-06] MEDS: AMIODARONE 200 MG TABLET PO SCH ×2 (08:00→22:42)
[2021-01-06] MEDS: POTASSIUM CHLORIDE 20MEQ/100ML 100 ML IV PRN (08:00)
[2021-01-06] MEDS: BARICITINIB (EUA) 2 MG TABLET PO SCH (08:00)
[2021-01-06] MEDS: FAMOTIDINE 20MG TAB PO SCH (08:01)
[2021-01-06] MEDS: MONTELUKAST SODIUM 10 MG TAB PO SCH (08:01)
[2021-01-06] MEDS: ENOXAPARIN SODIUM 100 MG/1 ML SQ SCH (08:01)
[2021-01-06] MEDS: POLYETHYLENE GLYCOL 3350 17 GM POWD.PACK PO SCH (08:02)
[2021-01-06] MEDS: CLONIDINE HCL 0.1 MG TABLET PO SCH ×2 (08:02→21:00)
[2021-01-06] MEDS: LEVOTHYROXINE 125 MCG TABLET PO SCH (08:08)
[2021-01-06] MEDS: ARTIFICIAL TEARS 3.5 GM OINTMENT OU SCH ×2 (08:08→22:43)
[2021-01-06] MEDS: MIDODRINE HCL 5 MG TABLET PO SCH ×3 (08:08→22:43)
[2021-01-06] MEDS: SERTRALINE HCL 50 MG TABLET PO SCH (08:08)
[2021-01-06 08:29] LABS: HEMATOCRIT 36.9 % (36-48); MEAN CORPUSCULAR HEMOGLOBIN 26.6 pg (27.0-33.0); MEAN CORPUSCULAR VOLUME 83.3 fL (79-99); NUCLEATED RED BLOOD CELLS 1.1 % (0.0-0.19); RED BLOOD CELL COUNT(AUTO) 4.43 MIL/uL (4.00-5.50); RED CELL DISTRIBUTION WIDTH 16.1 % (11.0-15.5); WHITE BLOOD COUNT (AUTO) 18.2 K/uL (4.8-10.8)
[2021-01-06] MEDS: VANCOMYCIN 500MG+NS 100ML IVPB IV SCH (10:02)
[2021-01-06] MEDS: FENTANYL 2500MCG+NS 250ML 250 ML IV SCH (14:42)
[2021-01-06 16:45] LABS: ABG BASE EXCESS 6.1 mmol/L (-2.0-3.0); ABG OXYGEN SATURATION 98.4 % (95.0-99.0); ABG PCO2 36 mmHg (32-45)
[2021-01-06] MEDS ORDERED: CALCIUM GLUC 1GM/10ML VIAL IV STA (17:15)
[2021-01-06] MEDS: CALCIUM GLUC 1GM 1 GM in 0.9%NACL 100ML 100 ML IV SCH (17:29)
[2021-01-06] MEDS ORDERED: CALCIUM GLUC 1GM/10ML VIAL IV ONE (17:30)
[2021-01-06] MEDS: 0.9% NACL 250ML 250 ML IV SCH (18:05)
[2021-01-06] MEDS: VANCOMYCIN 750MG VIAL IVPB SCH (18:05)
[2021-01-06] MEDS: FLUCONAZOLE 400 MG/NS 200 ML 200 ML IV SCH (22:42)
[2021-01-07] VITALS (38 sets, daily range): BP systolic 115–138; BP diastolic 52–78
[2021-01-07] MEDS: ALBUTEROL INHALER 90MCG/INH IH SCH ×4 (00:12→17:22)
[2021-01-07] MEDS: INSULIN HUMULIN R 100 UNIT/ML 3ML SQ SCH ×6 (00:12→22:27)
[2021-01-07] MEDS: MIDAZOLAM 100MG-0.9% NS 100ML 100 ML IV SCH (03:36)
[2021-01-07] MEDS: AZTREONAM 1 GM VIAL IVP SCH ×3 (05:04→20:09)
[2021-01-07] MEDS: METRONIDAZOLE 500MG/100ML BAG 100 ML IVPB SCH ×3 (05:07→20:10)
[2021-01-07] MEDS: VANCOMYCIN 750MG VIAL IVPB SCH ×2 (06:33→17:36)
[2021-01-07] MEDS: 0.9% NACL 250ML 250 ML IV SCH ×2 (06:33→17:37)
[2021-01-07] MEDS: CHLORHEXIDINE GLUCONATE 473 ML MOUTHWASH MM SCH ×4 (06:35→20:11)
[2021-01-07] MEDS: SOLU-MEDROL 125MG VIAL IVP SCH ×2 (06:35→20:10)
[2021-01-07 06:50] LABS: MEAN CORPUSCULAR HEMOGLOBIN 26.2 pg (27.0-33.0); MEAN CORPUSCULAR HGB CONC 31.1 g/dL (32.0-36.0); MEAN CORPUSCULAR VOLUME 84.4 fL (79-99); NUCLEATED RED BLOOD CELLS 0.8 % (0.0-0.19); RED BLOOD CELL COUNT(AUTO) 4.5 MIL/uL (4.00-5.50); RED CELL DISTRIBUTION WIDTH 16.4 % (11.0-15.5); WHITE BLOOD COUNT (AUTO) 22.6 K/uL (4.8-10.8)
[2021-01-07 07:15] LABS: ALBUMIN 1.8 g/dL (3.5-5.0); BILIRUBIN,DIRECT 1.6 mg/dL (0.0-0.3); BILIRUBIN,TOTAL 2.5 mg/dL (0.2-1.0); TOTAL PROTEIN, SERUM 4.8 g/dL (6.0-8.3)
[2021-01-07] MEDS: INSULIN GLARGINE 100 UNITS/ML 10 ML VIAL SQ SCH ×2 (07:35→16:45)
[2021-01-07] MEDS: FENTANYL 2500MCG+NS 250ML 250 ML IV SCH (07:36)
[2021-01-07] MEDS: POLYETHYLENE GLYCOL 3350 17 GM POWD.PACK PO SCH (08:05)
[2021-01-07] MEDS: ASPIRIN 81MG CHEW TAB PO SCH (08:05)
[2021-01-07] MEDS: FAMOTIDINE 20MG TAB PO SCH (08:05)
[2021-01-07] MEDS: ENOXAPARIN SODIUM 100 MG/1 ML SQ SCH (08:06)
[2021-01-07] MEDS: SERTRALINE HCL 50 MG TABLET PO SCH (08:06)
[2021-01-07] MEDS: MIDODRINE HCL 5 MG TABLET PO SCH ×3 (08:06→20:10)
[2021-01-07] MEDS: CLONIDINE HCL 0.1 MG TABLET PO SCH ×2 (08:07→20:10)
[2021-01-07] MEDS: BARICITINIB (EUA) 2 MG TABLET PO SCH (08:08)
[2021-01-07] MEDS: ARTIFICIAL TEARS 3.5 GM OINTMENT OU SCH ×2 (08:08→20:11)
[2021-01-07] MEDS: MONTELUKAST SODIUM 10 MG TAB PO SCH (08:20)
[2021-01-07] MEDS: AMIODARONE 200 MG TABLET PO SCH (08:20)
[2021-01-07] MEDS: LEVOTHYROXINE 125 MCG TABLET PO SCH (08:20)
[2021-01-07] MEDS ORDERED: 0.9%NACL 1000ML 1,000 ML IV ONE (11:11)
[2021-01-07] MEDS: 0.9%NACL 1000ML 1,000 ML IV SCH ×2 (11:30→20:12)
[2021-01-07] MEDS: FLUCONAZOLE 400 MG/NS 200 ML 200 ML IV SCH (20:10)
[2021-01-08] VITALS (42 sets, daily range): BP systolic 111–140; BP diastolic 59–78
[2021-01-08] MEDS: INSULIN HUMULIN R 100 UNIT/ML 3ML SQ SCH ×6 (04:00→20:00)
[2021-01-08] MEDS ORDERED: FENTANYL 2500MCG+NS 250ML 250 ML IV ONE (04:22)
[2021-01-08] MEDS: AZTREONAM 1 GM VIAL IVP SCH (04:27)
[2021-01-08] MEDS: CHLORHEXIDINE GLUCONATE 473 ML MOUTHWASH MM SCH ×4 (04:27→19:36)
[2021-01-08] MEDS: MIDAZOLAM 100MG-0.9% NS 100ML 100 ML IV SCH (04:28)
[2021-01-08 05:43] LABS: HEMATOCRIT 39.4 % (36-48); MEAN CORPUSCULAR HEMOGLOBIN 26.4 pg (27.0-33.0); MEAN CORPUSCULAR HGB CONC 30.7 g/dL (32.0-36.0); PLATELET COUNT (AUTO) 356 K/uL (130-400); RED BLOOD CELL COUNT(AUTO) 4.58 MIL/uL (4.00-5.50); RED CELL DISTRIBUTION WIDTH 16.4 % (11.0-15.5); WHITE BLOOD COUNT (AUTO) 26.3 K/uL (4.8-10.8)
[2021-01-08 06:10] LABS: ALBUMIN 1.7 g/dL (3.5-5.0); BILIRUBIN,DIRECT 2.1 mg/dL (0.0-0.3); BILIRUBIN,TOTAL 2.7 mg/dL (0.2-1.0); CREATININE 0.8 mg/dL (0.5-1.5); POTASSIUM 3.4 mmol/L (3.5-5.1); TOTAL PROTEIN, SERUM 4.6 g/dL (6.0-8.3)
[2021-01-08] MEDS: VANCOMYCIN 750MG VIAL IVPB SCH ×2 (06:36→17:07)
[2021-01-08] MEDS: 0.9% NACL 250ML 250 ML IV SCH ×2 (06:36→17:07)
[2021-01-08] MEDS: SOLU-MEDROL 125MG VIAL IVP SCH ×2 (06:37→18:09)
[2021-01-08] MEDS: METRONIDAZOLE 500MG/100ML BAG 100 ML IVPB SCH ×3 (06:37→19:36)
[2021-01-08] MEDS: 0.9%NACL 1000ML 1,000 ML IV SCH (06:37)
[2021-01-08] MEDS: ALBUTEROL INHALER 90MCG/INH IH SCH ×4 (06:38→17:08)
[2021-01-08] MEDS: MONTELUKAST SODIUM 10 MG TAB PO SCH (08:09)
[2021-01-08] MEDS: SERTRALINE HCL 50 MG TABLET PO SCH (08:09)
[2021-01-08] MEDS: FAMOTIDINE 20MG TAB PO SCH (08:09)
[2021-01-08] MEDS: ASPIRIN 81MG CHEW TAB PO SCH (08:09)
[2021-01-08] MEDS: POLYETHYLENE GLYCOL 3350 17 GM POWD.PACK PO SCH (08:10)
[2021-01-08] MEDS: BARICITINIB (EUA) 2 MG TABLET PO SCH (08:10)
[2021-01-08] MEDS: ARTIFICIAL TEARS 3.5 GM OINTMENT OU SCH ×2 (08:10→19:37)
[2021-01-08] MEDS: ENOXAPARIN SODIUM 100 MG/1 ML SQ SCH (08:10)
[2021-01-08] MEDS: MIDODRINE HCL 5 MG TABLET PO SCH ×3 (08:16→19:36)
[2021-01-08] MEDS: AMIODARONE 200 MG TABLET PO SCH (08:16)
[2021-01-08] MEDS: LEVOTHYROXINE 125 MCG TABLET PO SCH (08:16)
[2021-01-08] MEDS: CLONIDINE HCL 0.1 MG TABLET PO SCH ×2 (08:17→19:40)
[2021-01-08] MEDS: POTASSIUM CHLORIDE 20MEQ/100ML 100 ML IV PRN (08:19)
[2021-01-08] MEDS ORDERED: DEXTROSE 5 %-0.45 % NACL 1,000 ML IV SCH (08:30)
[2021-01-08] MEDS: INSULIN GLARGINE 100 UNITS/ML 10 ML VIAL SQ SCH ×2 (09:24→16:30)
[2021-01-08 09:45] LABS: ABG BASE EXCESS 3.8 mmol/L (-2.0-3.0); ABG HCO3 28.7 mmol/L (21.0-28.0); ABG OXYGEN SATURATION 89.1 % (95.0-99.0); ABG PCO2 44 mmHg (32-45)
[2021-01-08] MEDS: FUROSEMIDE 40MG VIAL IV SCH (15:17)
[2021-01-08 16:11] LABS: CREATININE 0.8 mg/dL (0.5-1.5); POTASSIUM 4.1 mmol/L (3.5-5.1)
[2021-01-08 18:27] LABS: APPEARANCE,URINE Clear (CLEAR); BILIRUBIN,URINE Negative (NEGATIVE); COLOR,URINE Yellow (YELLOW); GLUCOSE, URINE (UA) Negative (NEGATIVE); KETONES,URINE Negative (NEGATIVE); LEUKOCYTE ESTERASE ,URINE Negative (NEGATIVE); NITRATE,URINE Negative (NEGATIVE); OCCULT BLOOD,URINE Negative (NEGATIVE); PROTEIN,URINE Negative (NEGATIVE); UROBILINOGEN,URINE 0.2 mg/dL (0.2-1.0)
[2021-01-08] MEDS: FLUCONAZOLE 400 MG/NS 200 ML 200 ML IV SCH (19:36)
[2021-01-09] VITALS (32 sets, daily range): BP systolic 93–135; BP diastolic 52–74
[2021-01-09] MEDS: FUROSEMIDE 40MG VIAL IV SCH ×4 (00:38→23:41)
[2021-01-09] MEDS: ALBUTEROL INHALER 90MCG/INH IH SCH ×4 (00:38→17:25)
[2021-01-09] MEDS: INSULIN HUMULIN R 100 UNIT/ML 3ML SQ SCH ×6 (00:41→20:00)
[2021-01-09] MEDS ORDERED: FENTANYL 2500MCG+NS 250ML 250 ML IV ONE ×2 (00:57→14:25)
[2021-01-09 03:58] LABS: ABG BASE EXCESS 5.9 mmol/L (-2.0-3.0); ABG HCO3 30.5 mmol/L (21.0-28.0); ABG OXYGEN SATURATION 95.9 % (95.0-99.0); ABG PCO2 44 mmHg (32-45)
[2021-01-09 05:36] LABS: MEAN CORPUSCULAR HEMOGLOBIN 26.2 pg (27.0-33.0); MEAN CORPUSCULAR HGB CONC 30.8 g/dL (32.0-36.0); MEAN CORPUSCULAR VOLUME 85.3 fL (79-99); NUCLEATED RED BLOOD CELLS 0.9 % (0.0-0.19); PLATELET COUNT (AUTO) 447 K/uL (130-400); RED BLOOD CELL COUNT(AUTO) 4.69 MIL/uL (4.00-5.50)
[2021-01-09 05:45] LABS: CRP QUANTITATIVE 11.2 mg/L (0.00-9.0); POTASSIUM 3.5 mmol/L (3.5-5.1); WHITE BLOOD COUNT (AUTO) 31.2 K/uL (4.8-10.8)
[2021-01-09] MEDS: CHLORHEXIDINE GLUCONATE 473 ML MOUTHWASH MM SCH ×4 (05:45→23:32)
[2021-01-09] MEDS: METRONIDAZOLE 500MG/100ML BAG 100 ML IVPB SCH ×3 (05:46→23:41)
[2021-01-09] MEDS: VANCOMYCIN KIT 1 GM/250 ML IV.KIT IV SCH ×2 (05:46→17:57)
[2021-01-09] MEDS: 0.9% NACL 250ML 250 ML IV SCH ×2 (05:46→17:57)
[2021-01-09 06:16] LABS: LYMPHOCYTES % (MANUAL) 4 % (22-44); MONOCYTES % (MANUAL) 6 % (2-9); SEGMENTED NEUTROPHILS % 90 % (40-70)
[2021-01-09 06:18] LABS: MAN.DIFF COMMENT-IMPRESSION MANUAL DIFFERENTIAL; PLATELET MORPHOLOGY COMMENT SLIGHT INCREASED
[2021-01-09] MEDS: MIDAZOLAM 100MG-0.9% NS 100ML 100 ML IV SCH (06:27)
[2021-01-09] MEDS: SOLU-MEDROL 125MG VIAL IVP SCH ×2 (06:27→17:57)
[2021-01-09] MEDS: INSULIN GLARGINE 100 UNITS/ML 10 ML VIAL SQ SCH ×2 (08:57→16:26)
[2021-01-09] MEDS: MONTELUKAST SODIUM 10 MG TAB PO SCH (08:58)
[2021-01-09] MEDS: ASPIRIN 81MG CHEW TAB PO SCH (08:58)
[2021-01-09] MEDS: FAMOTIDINE 20MG TAB PO SCH (08:58)
[2021-01-09] MEDS: AMIODARONE 200 MG TABLET PO SCH (08:58)
[2021-01-09] MEDS: MIDODRINE HCL 5 MG TABLET PO SCH ×3 (08:59→21:17)
[2021-01-09] MEDS: ENOXAPARIN SODIUM 100 MG/1 ML SQ SCH (08:59)
[2021-01-09] MEDS: SERTRALINE HCL 50 MG TABLET PO SCH (08:59)
[2021-01-09] MEDS: LEVOTHYROXINE 125 MCG TABLET PO SCH (08:59)
[2021-01-09] MEDS: POLYETHYLENE GLYCOL 3350 17 GM POWD.PACK PO SCH (08:59)
[2021-01-09] MEDS: ARTIFICIAL TEARS 3.5 GM OINTMENT OU SCH ×2 (09:00→21:17)
[2021-01-09] MEDS: BARICITINIB (EUA) 2 MG TABLET PO SCH (09:00)
[2021-01-09] MEDS: CLONIDINE HCL 0.1 MG TABLET PO SCH ×2 (09:00→21:17)
[2021-01-09] MEDS: POTASSIUM CHLORIDE 20MEQ/100ML 100 ML IV PRN (09:26)
[2021-01-09] MEDS: METOCLOPRAMIDE 10 MG/2 ML VIAL IVP SCH ×2 (12:21→17:24)
[2021-01-09] MEDS: FENTANYL CITRATE PF 0.05 MG/ML 2,500 MCG in 0.9%NACL 100ML 250 ML IVPB PRN (14:59)
[2021-01-09] MEDS: FLUCONAZOLE 400 MG/NS 200 ML 200 ML IV SCH (21:16)
[2021-01-10] VITALS (24 sets, daily range): BP systolic 97–135; BP diastolic 54–71
[2021-01-10] MEDS: MIDAZOLAM 100MG-0.9% NS 100ML 100 ML IV SCH ×2 (00:19→22:26)
[2021-01-10] MEDS: INSULIN HUMULIN R 100 UNIT/ML 3ML SQ SCH ×6 (00:49→20:00)
[2021-01-10] MEDS: CHLORHEXIDINE GLUCONATE 473 ML MOUTHWASH MM SCH ×4 (04:00→21:52)
[2021-01-10] MEDS: ALBUTEROL INHALER 90MCG/INH IH SCH ×4 (06:00→17:32)
[2021-01-10 06:03] LABS: HEMATOCRIT 38.3 % (36-48); MEAN CORPUSCULAR HEMOGLOBIN 27.3 pg (27.0-33.0); MEAN CORPUSCULAR HGB CONC 32.1 g/dL (32.0-36.0); MEAN CORPUSCULAR VOLUME 84.9 fL (79-99); NUCLEATED RED BLOOD CELLS 0.2 % (0.0-0.19); RED BLOOD CELL COUNT(AUTO) 4.51 MIL/uL (4.00-5.50); RED CELL DISTRIBUTION WIDTH 17.1 % (11.0-15.5); WHITE BLOOD COUNT (AUTO) 29.7 K/uL (4.8-10.8)
[2021-01-10 06:19] LABS: ALBUMIN 1.7 g/dL (3.5-5.0); BILIRUBIN,TOTAL 3.1 mg/dL (0.2-1.0); CREATININE 0.9 mg/dL (0.5-1.5); CRP QUANTITATIVE 6.5 mg/L (0.00-9.0); POTASSIUM 3.1 mmol/L (3.5-5.1); TOTAL PROTEIN, SERUM 4.6 g/dL (6.0-8.3)
[2021-01-10] MEDS: 0.9% NACL 250ML 250 ML IV SCH ×2 (06:53→17:32)
[2021-01-10] MEDS: VANCOMYCIN KIT 1 GM/250 ML IV.KIT IV SCH ×2 (06:53→17:32)
[2021-01-10] MEDS: METRONIDAZOLE 500MG/100ML BAG 100 ML IVPB SCH ×3 (06:53→22:25)
[2021-01-10] MEDS: SOLU-MEDROL 125MG VIAL IVP SCH ×2 (06:54→17:36)
[2021-01-10] MEDS: METOCLOPRAMIDE 10 MG/2 ML VIAL IVP SCH ×3 (07:54→17:32)
[2021-01-10] MEDS: ARTIFICIAL TEARS 3.5 GM OINTMENT OU SCH ×2 (07:55→21:52)
[2021-01-10] MEDS: MONTELUKAST SODIUM 10 MG TAB PO SCH (07:55)
[2021-01-10] MEDS: ASPIRIN 81MG CHEW TAB PO SCH (07:55)
[2021-01-10] MEDS: FAMOTIDINE 20MG TAB PO SCH (07:55)
[2021-01-10] MEDS: CLONIDINE HCL 0.1 MG TABLET PO SCH ×2 (07:56→21:00)
[2021-01-10] MEDS: ENOXAPARIN SODIUM 100 MG/1 ML SQ SCH (07:56)
[2021-01-10] MEDS: AMIODARONE 200 MG TABLET PO SCH (07:56)
[2021-01-10] MEDS: SERTRALINE HCL 50 MG TABLET PO SCH (07:56)
[2021-01-10] MEDS: POLYETHYLENE GLYCOL 3350 17 GM POWD.PACK PO SCH (07:56)
[2021-01-10 07:58] LABS: ABG BASE EXCESS 9.3 mmol/L (-2.0-3.0); ABG HCO3 33.5 mmol/L (21.0-28.0); ABG OXYGEN SATURATION 94.2 % (95.0-99.0); ABG PCO2 44 mmHg (32-45)
[2021-01-10] MEDS: MIDODRINE HCL 5 MG TABLET PO SCH ×3 (08:00→21:51)
[2021-01-10] MEDS: LEVOTHYROXINE 125 MCG TABLET PO SCH (09:29)
[2021-01-10] MEDS: POTASSIUM CHLORIDE 20MEQ/100ML 100 ML IV PRN ×2 (09:29→12:06)
[2021-01-10] MEDS: INSULIN GLARGINE 100 UNITS/ML 10 ML VIAL SQ SCH ×2 (09:58→16:30)
[2021-01-10] MEDS: BARICITINIB (EUA) 2 MG TABLET PO SCH (10:00)
[2021-01-10] MEDS: FENTANYL CITRATE PF 0.05 MG/ML 2,500 MCG in 0.9%NACL 100ML 250 ML IVPB PRN (12:07)
[2021-01-10] MEDS: FLUCONAZOLE 400 MG/NS 200 ML 200 ML IV SCH (21:51)
[2021-01-11] VITALS (40 sets, daily range): BP systolic 76–183; BP diastolic 42–97
[2021-01-11] MEDS ORDERED: FENTANYL 2500MCG+NS 250ML 250 ML IV ONE ×2 (01:59→16:08)
[2021-01-11] MEDS: INSULIN HUMULIN R 100 UNIT/ML 3ML SQ SCH ×6 (04:00→20:00)
[2021-01-11 04:37] LABS: ABG BASE EXCESS 6.7 mmol/L (-2.0-3.0); ABG HCO3 31.2 mmol/L (21.0-28.0); ABG OXYGEN SATURATION 93.8 % (95.0-99.0); ABG PCO2 44 mmHg (32-45)
[2021-01-11] MEDS: CHLORHEXIDINE GLUCONATE 473 ML MOUTHWASH MM SCH ×4 (04:52→21:17)
[2021-01-11] MEDS: ALBUTEROL INHALER 90MCG/INH IH SCH ×4 (05:07→18:08)
[2021-01-11] MEDS: METRONIDAZOLE 500MG/100ML BAG 100 ML IVPB SCH ×3 (05:08→21:16)
[2021-01-11 06:04] LABS: HEMATOCRIT 38.1 % (36-48); MEAN CORPUSCULAR HEMOGLOBIN 26.4 pg (27.0-33.0); MEAN CORPUSCULAR HGB CONC 31.2 g/dL (32.0-36.0); MEAN CORPUSCULAR VOLUME 84.7 fL (79-99); RED BLOOD CELL COUNT(AUTO) 4.5 MIL/uL (4.00-5.50); RED CELL DISTRIBUTION WIDTH 17.3 % (11.0-15.5); WHITE BLOOD COUNT (AUTO) 26.3 K/uL (4.8-10.8)
[2021-01-11] MEDS: VANCOMYCIN KIT 1 GM/250 ML IV.KIT IV SCH ×2 (06:05→18:00)
[2021-01-11] MEDS: 0.9% NACL 250ML 250 ML IV SCH ×2 (06:06→18:00)
[2021-01-11] MEDS: SOLU-MEDROL 125MG VIAL IVP SCH ×2 (06:12→18:00)
[2021-01-11] MEDS: METOCLOPRAMIDE 10 MG/2 ML VIAL IVP SCH ×3 (06:12→16:32)
[2021-01-11 06:14] LABS: CREATININE 0.7 mg/dL (0.5-1.5); POTASSIUM 3.6 mmol/L (3.5-5.1)
[2021-01-11] MEDS: INSULIN GLARGINE 100 UNITS/ML 10 ML VIAL SQ SCH ×2 (06:25→17:59)
[2021-01-11] MEDS: ARTIFICIAL TEARS 3.5 GM OINTMENT OU SCH ×2 (08:49→21:17)
[2021-01-11] MEDS: CLONIDINE HCL 0.1 MG TABLET PO SCH ×2 (09:00→19:44)
[2021-01-11] MEDS: MIDODRINE HCL 5 MG TABLET PO SCH ×3 (09:04→21:16)
[2021-01-11] MEDS: MONTELUKAST SODIUM 10 MG TAB PO SCH (09:04)
[2021-01-11] MEDS: SERTRALINE HCL 50 MG TABLET PO SCH (09:04)
[2021-01-11] MEDS: ASPIRIN 81MG CHEW TAB PO SCH (09:04)
[2021-01-11] MEDS: BARICITINIB (EUA) 2 MG TABLET PO SCH (09:04)
[2021-01-11] MEDS: LEVOTHYROXINE 125 MCG TABLET PO SCH (09:04)
[2021-01-11] MEDS: FAMOTIDINE 20MG TAB PO SCH (09:04)
[2021-01-11] MEDS: AMIODARONE 200 MG TABLET PO SCH (09:04)
[2021-01-11] MEDS: POLYETHYLENE GLYCOL 3350 17 GM POWD.PACK PO SCH (09:04)
[2021-01-11] MEDS: ENOXAPARIN SODIUM 100 MG/1 ML SQ SCH (09:05)
[2021-01-11] MEDS ORDERED: NOREPINEPHRIN 4MG/NS 250ML 250 ML IV SCH (12:00)
[2021-01-11] MEDS ORDERED: AMIODARONE 900MG VIAL 450 MG in DEXTROSE 5%-WATER 250 ML IV SCH (13:30)
[2021-01-11] MEDS ORDERED: AMIODARONE 150MG VIAL 150 MG in DEXTROSE 5%-WATER 100 ML IV SCH (13:30)
[2021-01-11] MEDS ORDERED: AMIODARONE 900MG VIAL 360 MG in DEXTROSE 5%-WATER 200 ML IV SCH ×4 (13:30)
[2021-01-11] MEDS: MIDAZOLAM 100MG-0.9% NS 100ML 100 ML IV SCH ×2 (16:17→16:30)
[2021-01-11] MEDS: FENTANYL CITRATE PF 0.05 MG/ML 2,500 MCG in 0.9%NACL 100ML 250 ML IVPB PRN ×2 (16:19→16:31)
[2021-01-11] MEDS: FLUCONAZOLE 400 MG/NS 200 ML 200 ML IV SCH (21:16)
[2021-01-12] VITALS (90 sets, daily range): BP systolic 97–177; BP diastolic 38–74
[2021-01-12] MEDS: INSULIN HUMULIN R 100 UNIT/ML 3ML SQ SCH ×6 (00:21→21:33)
[2021-01-12] MEDS: ALBUTEROL INHALER 90MCG/INH IH SCH ×2 (00:21→06:26)
[2021-01-12 05:43] LABS: BASOPHILS % (AUTO) 0.2 % (0.0-5.0); HEMATOCRIT 35.6 % (36-48); LYMPHOCYTES % (AUTO) 4.6 % (21.0-51.0); MEAN CORPUSCULAR HEMOGLOBIN 26.8 pg (27.0-33.0); MEAN CORPUSCULAR HGB CONC 30.9 g/dL (32.0-36.0); MEAN CORPUSCULAR VOLUME 86.6 fL (79-99); MONOCYTES % (AUTO) 4.4 % (3.0-13.0); NEUTROPHILS % (AUTO) 88.7 % (40.0-77.0); PLATELET COUNT (AUTO) 273 K/uL (130-400); RED BLOOD CELL COUNT(AUTO) 4.11 MIL/uL (4.00-5.50); WHITE BLOOD COUNT (AUTO) 23.7 K/uL (4.8-10.8)
[2021-01-12 06:10] LABS: ALBUMIN 1.7 g/dL (3.5-5.0); MAGNESIUM 2.3 mg/dL (1.80-2.40); POTASSIUM 3.9 mmol/L (3.5-5.1); TOTAL PROTEIN, SERUM 4.4 g/dL (6.0-8.3)
[2021-01-12] MEDS: METRONIDAZOLE 500MG/100ML BAG 100 ML IVPB SCH ×3 (06:26→21:00)
[2021-01-12] MEDS: SOLU-MEDROL 125MG VIAL IVP SCH ×2 (06:26→19:08)
[2021-01-12] MEDS: CHLORHEXIDINE GLUCONATE 473 ML MOUTHWASH MM SCH ×4 (06:27→21:01)
[2021-01-12] MEDS ORDERED: PHARMACY COMMUNICATION MISC SCH (07:00)
[2021-01-12] MEDS: AMIODARONE 200 MG TABLET PO SCH (08:37)
[2021-01-12] MEDS: MONTELUKAST SODIUM 10 MG TAB PO SCH (08:37)
[2021-01-12] MEDS: FAMOTIDINE 20MG TAB PO SCH (08:37)
[2021-01-12] MEDS: CLONIDINE HCL 0.1 MG TABLET PO SCH ×2 (08:37→21:00)
[2021-01-12] MEDS: POLYETHYLENE GLYCOL 3350 17 GM POWD.PACK PO SCH (08:38)
[2021-01-12] MEDS: SERTRALINE HCL 50 MG TABLET PO SCH (08:38)
[2021-01-12] MEDS: ASPIRIN 81MG CHEW TAB PO SCH (08:38)
[2021-01-12] MEDS: MIDODRINE HCL 5 MG TABLET PO SCH ×3 (08:38→21:01)
[2021-01-12] MEDS: LEVOTHYROXINE 125 MCG TABLET PO SCH (08:38)
[2021-01-12] MEDS: METOCLOPRAMIDE 10 MG/2 ML VIAL IVP SCH ×3 (08:38→16:59)
[2021-01-12] MEDS: ENOXAPARIN SODIUM 100 MG/1 ML SQ SCH (08:39)
[2021-01-12] MEDS: 0.9% NACL 250ML 250 ML IV SCH ×2 (08:49→21:00)
[2021-01-12] MEDS: VANCOMYCIN KIT 1 GM/250 ML IV.KIT IV SCH ×2 (08:49→21:00)
[2021-01-12] MEDS: BARICITINIB (EUA) 2 MG TABLET PO SCH (08:50)
[2021-01-12] MEDS: ARTIFICIAL TEARS 3.5 GM OINTMENT OU SCH ×2 (08:50→21:01)
[2021-01-12] MEDS: INSULIN GLARGINE 100 UNITS/ML 10 ML VIAL SQ SCH ×2 (08:52→17:17)
[2021-01-12] MEDS ORDERED: FENTANYL 2500MCG+NS 250ML 0 ML IV ONE (09:05)
[2021-01-12] MEDS ORDERED: FENTANYL CITRATE PF 0.05 MG/ML 1,000 MCG in 0.9%NACL 100ML 100 ML IV PRN (10:30)
[2021-01-12] MEDS ORDERED: FENTANYL 2500MCG+NS 250ML 250 ML IV ONE (11:49)
[2021-01-12] MEDS: DEXTROSE 5%-WATER 1,000 ML IV SCH (11:51)
[2021-01-12] MEDS: MIDAZOLAM 100MG-0.9% NS 100ML 100 ML IV SCH (13:27)
[2021-01-12] MEDS: FLUCONAZOLE 400 MG/NS 200 ML 200 ML IV SCH (21:00)
[2021-01-13] VITALS (31 sets, daily range): BP systolic 102–172; BP diastolic 52–89
[2021-01-13] MEDS: INSULIN HUMULIN R 100 UNIT/ML 3ML SQ SCH ×6 (01:19→20:26)
[2021-01-13] MEDS: ALBUTEROL INHALER 90MCG/INH IH SCH ×4 (01:20→17:10)
[2021-01-13] MEDS: DEXTROSE 5%-WATER 1,000 ML IV SCH ×2 (03:40→20:20)
[2021-01-13] MEDS: METRONIDAZOLE 500MG/100ML BAG 100 ML IVPB SCH ×3 (05:26→21:23)
[2021-01-13] MEDS: CHLORHEXIDINE GLUCONATE 473 ML MOUTHWASH MM SCH ×4 (05:27→21:04)
[2021-01-13] MEDS: VANCOMYCIN KIT 1 GM/250 ML IV.KIT IV SCH ×2 (06:18→21:03)
[2021-01-13] MEDS: SOLU-MEDROL 125MG VIAL IVP SCH ×2 (06:18→17:50)
[2021-01-13] MEDS: 0.9% NACL 250ML 250 ML IV SCH ×2 (06:18→21:03)
[2021-01-13 06:43] LABS: BASOPHILS % (AUTO) 0.2 % (0.0-5.0); HEMATOCRIT 32.4 % (36-48); LYMPHOCYTES % (AUTO) 2.3 % (21.0-51.0); MEAN CORPUSCULAR HEMOGLOBIN 26.4 pg (27.0-33.0); MEAN CORPUSCULAR HGB CONC 31.2 g/dL (32.0-36.0); MEAN CORPUSCULAR VOLUME 84.8 fL (79-99); MONOCYTES % (AUTO) 3.2 % (3.0-13.0); NEUTROPHILS % (AUTO) 92.8 % (40.0-77.0); PLATELET COUNT (AUTO) 229 K/uL (130-400); RED BLOOD CELL COUNT(AUTO) 3.82 MIL/uL (4.00-5.50); RED CELL DISTRIBUTION WIDTH 17.7 % (11.0-15.5); WHITE BLOOD COUNT (AUTO) 18.3 K/uL (4.8-10.8)
[2021-01-13 07:15] LABS: ALBUMIN 1.5 g/dL (3.5-5.0); BILIRUBIN,TOTAL 2.7 mg/dL (0.2-1.0); CREATININE 0.7 mg/dL (0.5-1.5); POTASSIUM 3.9 mmol/L (3.5-5.1); TOTAL PROTEIN, SERUM 4.1 g/dL (6.0-8.3)
[2021-01-13] MEDS: FENTANYL 2500MCG+NS 250ML 250 ML IV PRN (07:38)
[2021-01-13] MEDS: INSULIN GLARGINE 100 UNITS/ML 10 ML VIAL SQ SCH ×2 (08:32→20:27)
[2021-01-13] MEDS: MIDAZOLAM 100MG-0.9% NS 100ML 100 ML IV SCH (08:33)
[2021-01-13] MEDS: ENOXAPARIN SODIUM 100 MG/1 ML SQ SCH (08:37)
[2021-01-13] MEDS: ASPIRIN 81MG CHEW TAB PO SCH (08:38)
[2021-01-13] MEDS: MIDODRINE HCL 5 MG TABLET PO SCH ×4 (08:38→21:04)
[2021-01-13] MEDS: AMIODARONE 200 MG TABLET PO SCH (08:38)
[2021-01-13] MEDS: FAMOTIDINE 20MG TAB PO SCH (08:38)
[2021-01-13] MEDS: METOCLOPRAMIDE 10 MG/2 ML VIAL IVP SCH ×3 (08:39→21:23)
[2021-01-13] MEDS: LEVOTHYROXINE 125 MCG TABLET PO SCH (08:40)
[2021-01-13] MEDS: SERTRALINE HCL 50 MG TABLET PO SCH (08:40)
[2021-01-13] MEDS: MONTELUKAST SODIUM 10 MG TAB PO SCH (08:40)
[2021-01-13] MEDS: POLYETHYLENE GLYCOL 3350 17 GM POWD.PACK PO SCH (08:41)
[2021-01-13] MEDS: ARTIFICIAL TEARS 3.5 GM OINTMENT OU SCH ×2 (08:41→21:03)
[2021-01-13] MEDS: BARICITINIB (EUA) 2 MG TABLET PO SCH (08:44)
[2021-01-13] MEDS: CLONIDINE HCL 0.1 MG TABLET PO SCH ×2 (09:00→20:27)
[2021-01-13] MEDS: FLUCONAZOLE 400 MG/NS 200 ML 200 ML IV SCH (20:25)
[2021-01-14] VITALS (24 sets, daily range): BP systolic 94–138; BP diastolic 51–76
[2021-01-14] MEDS: ALBUTEROL INHALER 90MCG/INH IH SCH ×4 (00:31→18:21)
[2021-01-14] MEDS: INSULIN HUMULIN R 100 UNIT/ML 3ML SQ SCH ×6 (00:31→20:07)
[2021-01-14] MEDS: FENTANYL 2500MCG+NS 250ML 250 ML IV PRN ×2 (03:16→23:18)
[2021-01-14 04:23] LABS: ABG PCO2 45 mmHg (32-45)
[2021-01-14] MEDS: CHLORHEXIDINE GLUCONATE 473 ML MOUTHWASH MM SCH ×4 (04:57→22:05)
[2021-01-14] MEDS: MIDODRINE HCL 5 MG TABLET PO SCH ×3 (05:33→20:00)
[2021-01-14] MEDS: METOCLOPRAMIDE 10 MG/2 ML VIAL IVP SCH ×3 (05:33→20:00)
[2021-01-14] MEDS: LEVOTHYROXINE 125 MCG TABLET PO SCH (05:34)
[2021-01-14] MEDS: METRONIDAZOLE 500MG/100ML BAG 100 ML IVPB SCH ×3 (05:34→22:05)
[2021-01-14] MEDS: SOLU-MEDROL 125MG VIAL IVP SCH (06:16)
[2021-01-14] MEDS: MIDAZOLAM 100MG-0.9% NS 100ML 100 ML IV SCH (06:16)
[2021-01-14 06:44] LABS: HEMATOCRIT 32.7 % (36-48); MEAN CORPUSCULAR HEMOGLOBIN 26.5 pg (27.0-33.0); MEAN CORPUSCULAR HGB CONC 30.6 g/dL (32.0-36.0); MEAN CORPUSCULAR VOLUME 86.7 fL (79-99); RED BLOOD CELL COUNT(AUTO) 3.77 MIL/uL (4.00-5.50); RED CELL DISTRIBUTION WIDTH 17.8 % (11.0-15.5)
[2021-01-14 06:58] LABS: ALBUMIN 1.4 g/dL (3.5-5.0); BILIRUBIN,TOTAL 2.9 mg/dL (0.2-1.0); CREATININE 0.6 mg/dL (0.5-1.5); CRP QUANTITATIVE 9.3 mg/L (0.00-9.0); POTASSIUM 4.2 mmol/L (3.5-5.1); TOTAL PROTEIN, SERUM 3.9 g/dL (6.0-8.3)
[2021-01-14] MEDS: CLONIDINE HCL 0.1 MG TABLET PO SCH ×2 (09:00→20:01)
[2021-01-14] MEDS: VANCOMYCIN KIT 1 GM/250 ML IV.KIT IV SCH ×2 (09:03→21:13)
[2021-01-14] MEDS: FAMOTIDINE 20MG TAB PO SCH (09:04)
[2021-01-14] MEDS: SERTRALINE HCL 50 MG TABLET PO SCH (09:04)
[2021-01-14] MEDS: POLYETHYLENE GLYCOL 3350 17 GM POWD.PACK PO SCH (09:04)
[2021-01-14] MEDS: ASPIRIN 81MG CHEW TAB PO SCH (09:04)
[2021-01-14] MEDS: MONTELUKAST SODIUM 10 MG TAB PO SCH (09:04)
[2021-01-14] MEDS: AMIODARONE 200 MG TABLET PO SCH (09:04)
[2021-01-14] MEDS: ARTIFICIAL TEARS 3.5 GM OINTMENT OU SCH ×2 (09:05→20:02)
[2021-01-14] MEDS: 0.9% NACL 250ML 250 ML IV SCH ×2 (09:05→21:13)
[2021-01-14] MEDS: INSULIN GLARGINE 100 UNITS/ML 10 ML VIAL SQ SCH ×2 (09:06→20:07)
[2021-01-14] MEDS: ENOXAPARIN SODIUM 100 MG/1 ML SQ SCH (09:07)
[2021-01-14] MEDS: SOLU-MEDROL 40MG VIAL IVP SCH (18:20)
[2021-01-14] MEDS: FLUCONAZOLE 400 MG/NS 200 ML 200 ML IV SCH (20:00)
[2021-01-14] MEDS: HONEY 1 APPL/ML TUBE TP SCH (22:06)
[2021-01-15] VITALS (24 sets, daily range): BP systolic 88–144; BP diastolic 47–77
[2021-01-15] MEDS: ALBUTEROL INHALER 90MCG/INH IH SCH ×4 (01:21→15:17)
[2021-01-15] MEDS: INSULIN HUMULIN R 100 UNIT/ML 3ML SQ SCH ×6 (01:21→20:00)
[2021-01-15 04:43] LABS: ABG BASE EXCESS -0.1 mmol/L (-2.0-3.0); ABG HCO3 24.8 mmol/L (21.0-28.0); ABG OXYGEN SATURATION 88.6 % (95.0-99.0); ABG PCO2 41 mmHg (32-45)
[2021-01-15] MEDS: MIDODRINE HCL 5 MG TABLET PO SCH ×3 (05:37→21:41)
[2021-01-15] MEDS: CHLORHEXIDINE GLUCONATE 473 ML MOUTHWASH MM SCH ×4 (05:38→21:38)
[2021-01-15] MEDS: METRONIDAZOLE 500MG/100ML BAG 100 ML IVPB SCH ×3 (05:38→21:38)
[2021-01-15] MEDS: METOCLOPRAMIDE 10 MG/2 ML VIAL IVP SCH ×3 (05:38→21:37)
[2021-01-15] MEDS: LEVOTHYROXINE 125 MCG TABLET PO SCH (05:39)
[2021-01-15 06:39] LABS: HEMATOCRIT 33.3 % (36-48); MEAN CORPUSCULAR HEMOGLOBIN 26.9 pg (27.0-33.0); MEAN CORPUSCULAR HGB CONC 31.5 g/dL (32.0-36.0); MEAN CORPUSCULAR VOLUME 85.2 fL (79-99); RED BLOOD CELL COUNT(AUTO) 3.91 MIL/uL (4.00-5.50); RED CELL DISTRIBUTION WIDTH 17.9 % (11.0-15.5); WHITE BLOOD COUNT (AUTO) 22.2 K/uL (4.8-10.8)
[2021-01-15] MEDS: SOLU-MEDROL 40MG VIAL IVP SCH ×2 (06:57→18:06)
[2021-01-15 06:59] LABS: CREATININE 0.6 mg/dL (0.5-1.5); POTASSIUM 4.9 mmol/L (3.5-5.1)
[2021-01-15] MEDS: ASPIRIN 81MG CHEW TAB PO SCH (08:08)
[2021-01-15] MEDS: MONTELUKAST SODIUM 10 MG TAB PO SCH (08:08)
[2021-01-15] MEDS: FAMOTIDINE 20MG TAB PO SCH (08:08)
[2021-01-15] MEDS: SERTRALINE HCL 50 MG TABLET PO SCH (08:08)
[2021-01-15] MEDS: CLONIDINE HCL 0.1 MG TABLET PO SCH ×2 (08:09→21:00)
[2021-01-15] MEDS: POLYETHYLENE GLYCOL 3350 17 GM POWD.PACK PO SCH (08:10)
[2021-01-15] MEDS: ENOXAPARIN SODIUM 100 MG/1 ML SQ SCH (08:10)
[2021-01-15] MEDS: INSULIN GLARGINE 100 UNITS/ML 10 ML VIAL SQ SCH ×2 (08:12→21:37)
[2021-01-15] MEDS: HONEY 1 APPL/ML TUBE TP SCH (08:13)
[2021-01-15] MEDS: ARTIFICIAL TEARS 3.5 GM OINTMENT OU SCH ×2 (08:13→21:24)
[2021-01-15] MEDS: AMIODARONE 200 MG TABLET PO SCH (08:30)
[2021-01-15] MEDS: 0.9% NACL 250ML 250 ML IV SCH ×2 (09:00→21:20)
[2021-01-15] MEDS: VANCOMYCIN KIT 1 GM/250 ML IV.KIT IV SCH ×2 (09:39→21:23)
[2021-01-15] MEDS: FLUCONAZOLE 400 MG/NS 200 ML 200 ML IV SCH (21:20)
[2021-01-16] VITALS (24 sets, daily range): BP systolic 106–149; BP diastolic 58–92
[2021-01-16] MEDS: INSULIN HUMULIN R 100 UNIT/ML 3ML SQ SCH ×6 (04:00→20:00)
[2021-01-16] MEDS: CHLORHEXIDINE GLUCONATE 473 ML MOUTHWASH MM SCH ×4 (04:31→20:52)
[2021-01-16] MEDS: LEVOTHYROXINE 125 MCG TABLET PO SCH (05:13)
[2021-01-16] MEDS: METRONIDAZOLE 500MG/100ML BAG 100 ML IVPB SCH (05:13)
[2021-01-16] MEDS: MIDODRINE HCL 5 MG TABLET PO SCH ×3 (05:13→20:52)
[2021-01-16] MEDS: METOCLOPRAMIDE 10 MG/2 ML VIAL IVP SCH ×3 (05:14→20:52)
[2021-01-16 05:33] LABS: HEMATOCRIT 35.5 % (36-48); MEAN CORPUSCULAR HEMOGLOBIN 26.3 pg (27.0-33.0); MEAN CORPUSCULAR VOLUME 84.9 fL (79-99); PLATELET COUNT (AUTO) 231 K/uL (130-400); RED BLOOD CELL COUNT(AUTO) 4.18 MIL/uL (4.00-5.50); RED CELL DISTRIBUTION WIDTH 18.6 % (11.0-15.5); WHITE BLOOD COUNT (AUTO) 24.8 K/uL (4.8-10.8)
[2021-01-16 05:52] LABS: ALBUMIN 1.7 g/dL (3.5-5.0); BILIRUBIN,DIRECT 2.5 mg/dL (0.0-0.3); BILIRUBIN,TOTAL 3.1 mg/dL (0.2-1.0); CREATININE 0.6 mg/dL (0.5-1.5); TOTAL PROTEIN, SERUM 4.7 g/dL (6.0-8.3)
[2021-01-16 05:54] LABS: B-TYPE NATRIURETIC PEPTIDE 885 pg/mL (0-100)
[2021-01-16] MEDS: ALBUTEROL INHALER 90MCG/INH IH SCH ×4 (06:00→18:00)
[2021-01-16 07:18] LABS: ABG BASE EXCESS 3.9 mmol/L (-2.0-3.0); ABG HCO3 28.2 mmol/L (21.0-28.0); ABG OXYGEN SATURATION 96.6 % (95.0-99.0); ABG PCO2 41 mmHg (32-45)
[2021-01-16] MEDS: SERTRALINE HCL 50 MG TABLET PO SCH (08:44)
[2021-01-16] MEDS: ENOXAPARIN SODIUM 100 MG/1 ML SQ SCH (08:44)
[2021-01-16] MEDS: MONTELUKAST SODIUM 10 MG TAB PO SCH (08:44)
[2021-01-16] MEDS: ASPIRIN 81MG CHEW TAB PO SCH (08:44)
[2021-01-16] MEDS: FAMOTIDINE 20MG TAB PO SCH (08:44)
[2021-01-16] MEDS: PREDNISONE 20 MG TABLET PO SCH (08:44)
[2021-01-16] MEDS: AMIODARONE 200 MG TABLET PO SCH (08:44)
[2021-01-16] MEDS: CLONIDINE HCL 0.1 MG TABLET PO SCH ×2 (08:45→20:51)
[2021-01-16] MEDS: VANCOMYCIN KIT 1 GM/250 ML IV.KIT IV SCH (08:45)
[2021-01-16] MEDS: POLYETHYLENE GLYCOL 3350 17 GM POWD.PACK PO SCH (08:45)
[2021-01-16] MEDS: INSULIN GLARGINE 100 UNITS/ML 10 ML VIAL SQ SCH ×2 (08:46→20:10)
[2021-01-16] MEDS: ARTIFICIAL TEARS 3.5 GM OINTMENT OU SCH ×2 (08:46→20:51)
[2021-01-16] MEDS: HONEY 1 APPL/ML TUBE TP SCH (08:47)
[2021-01-16] MEDS: 0.9% NACL 250ML 250 ML IV SCH ×5 (09:00→20:55)
[2021-01-16 09:15] LABS: AMYLASE 145 U/L (25-115); LIPASE 208 U/L (114-286)
[2021-01-16] MEDS: VANCOMYCIN 750MG VIAL IVPB SCH ×3 (10:42→20:55)
[2021-01-16] MEDS: MEROPENEM 1 GM VIAL IVP SCH ×2 (10:42→18:18)
[2021-01-16] MEDS: FUROSEMIDE 40MG VIAL IV SCH (13:20)
[2021-01-16 17:00] LABS: APPEARANCE,URINE Turbid (CLEAR); BILIRUBIN,URINE Negative (NEGATIVE); COLOR,URINE Orange (YELLOW); GLUCOSE, URINE (UA) Negative (NEGATIVE); KETONES,URINE Negative (NEGATIVE); LEUKOCYTE ESTERASE ,URINE Negative (NEGATIVE); NITRATE,URINE Negative (NEGATIVE); OCCULT BLOOD,URINE Large (NEGATIVE); PROTEIN,URINE POS 1+ mg/dL (NEGATIVE); UROBILINOGEN,URINE 0.2 mg/dL (0.2-1.0)
[2021-01-16 17:22] LABS: BACTERIA,URINE Rare /HPF (None Seen); WBC,URINE 0-1 /HPF (0-1)
[2021-01-16 17:23] LABS: AMORPHOUS SEDIMENT,UR Moderate /LPF (None Seen); MUCUS,URINE Moderate LPF (None Seen); SQUAMOUS EPITHELIAL CELL,UR 0-2 /HPF (0-2)
[2021-01-16] MEDS: FLUCONAZOLE 400 MG/NS 200 ML 200 ML IV SCH (20:49)
[2021-01-16] MEDS: NYSTATIN 15 GM POWDER TP SCH (20:52)
[2021-01-16] MEDS: BALSAM PERU/CASTOR OIL 60 GM TUBE TP SCH (20:52)
[2021-01-17] VITALS (22 sets, daily range): BP systolic 79–134; BP diastolic 37–77
[2021-01-17] MEDS: MEROPENEM 1 GM VIAL IVP SCH ×4 (02:43→23:52)
[2021-01-17] MEDS: FUROSEMIDE 40MG VIAL IV SCH ×3 (02:44→23:52)
[2021-01-17] MEDS: INSULIN HUMULIN R 100 UNIT/ML 3ML SQ SCH ×7 (04:00→23:28)
[2021-01-17 04:19] LABS: ABG BASE EXCESS 4.5 mmol/L (-2.0-3.0); ABG HCO3 28.2 mmol/L (21.0-28.0); ABG OXYGEN SATURATION 95.1 % (95.0-99.0); ABG PCO2 39 mmHg (32-45)
[2021-01-17 04:56] LABS: HEMATOCRIT 34.9 % (36-48); MEAN CORPUSCULAR HEMOGLOBIN 27.1 pg (27.0-33.0); MEAN CORPUSCULAR VOLUME 82.1 fL (79-99); NUCLEATED RED BLOOD CELLS 0.1 % (0.0-0.19); RED BLOOD CELL COUNT(AUTO) 4.25 MIL/uL (4.00-5.50); RED CELL DISTRIBUTION WIDTH 18.5 % (11.0-15.5); WHITE BLOOD COUNT (AUTO) 22.7 K/uL (4.8-10.8)
[2021-01-17 05:06] LABS: INR 1.09 (0.85-1.15); PROTHROMBIN TIME 11.8 SEC (9.6-11.6)
[2021-01-17 05:19] LABS: ALBUMIN 1.9 g/dL (3.5-5.0); BILIRUBIN,DIRECT 3.1 mg/dL (0.0-0.3); BILIRUBIN,TOTAL 4.2 mg/dL (0.2-1.0); CREATININE 0.7 mg/dL (0.5-1.5); POTASSIUM 4.3 mmol/L (3.5-5.1); TOTAL PROTEIN, SERUM 5.2 g/dL (6.0-8.3)
[2021-01-17] MEDS: METOCLOPRAMIDE 10 MG/2 ML VIAL IVP SCH ×3 (05:31→21:09)
[2021-01-17] MEDS: CHLORHEXIDINE GLUCONATE 473 ML MOUTHWASH MM SCH ×4 (05:31→21:09)
[2021-01-17] MEDS: MIDODRINE HCL 5 MG TABLET PO SCH ×3 (05:32→21:36)
[2021-01-17] MEDS: LEVOTHYROXINE 125 MCG TABLET PO SCH (05:32)
[2021-01-17] MEDS: ALBUTEROL INHALER 90MCG/INH IH SCH ×4 (06:00→18:00)
[2021-01-17] MEDS: SERTRALINE HCL 50 MG TABLET PO SCH ×2 (08:54→09:00)
[2021-01-17] MEDS: MONTELUKAST SODIUM 10 MG TAB PO SCH ×2 (08:54→09:00)
[2021-01-17] MEDS: FAMOTIDINE 20MG TAB PO SCH ×2 (08:54→09:00)
[2021-01-17] MEDS: AMIODARONE 200 MG TABLET PO SCH ×2 (08:54→09:00)
[2021-01-17] MEDS: PREDNISONE 20 MG TABLET PO SCH ×2 (08:54→09:00)
[2021-01-17] MEDS: ASPIRIN 81MG CHEW TAB PO SCH ×2 (08:55→09:00)
[2021-01-17] MEDS: 0.9% NACL 250ML 250 ML IV SCH ×2 (08:56→21:00)
[2021-01-17] MEDS: VANCOMYCIN 750MG VIAL IVPB SCH (08:56)
[2021-01-17] MEDS: NYSTATIN 15 GM POWDER TP SCH ×2 (08:57→21:09)
[2021-01-17] MEDS: CLONIDINE HCL 0.1 MG TABLET PO SCH ×3 (08:58→21:00)
[2021-01-17] MEDS: ARTIFICIAL TEARS 3.5 GM OINTMENT OU SCH ×2 (08:59→21:08)
[2021-01-17] MEDS: POLYETHYLENE GLYCOL 3350 17 GM POWD.PACK PO SCH (08:59)
[2021-01-17] MEDS: HONEY 1 APPL/ML TUBE TP SCH (09:00)
[2021-01-17] MEDS: ENOXAPARIN SODIUM 100 MG/1 ML SQ SCH (09:00)
[2021-01-17] MEDS: BALSAM PERU/CASTOR OIL 60 GM TUBE TP SCH ×2 (09:00→21:09)
[2021-01-17] MEDS: INSULIN GLARGINE 100 UNITS/ML 10 ML VIAL SQ SCH ×3 (09:00→21:36)
[2021-01-17] MEDS ORDERED: MORPHINE 2 MG SYG IVP PRN (14:00)
[2021-01-17] MEDS ORDERED: MORPHINE 2 MG SYG IVP ONE (16:00)
[2021-01-17] MEDS ORDERED: CLINIMIX-E 5%AA /D15%W 2000ML 2,000 ML IV SCH (17:00)
[2021-01-17] MEDS: FLUCONAZOLE 400 MG/NS 200 ML 200 ML IV SCH (21:08)
[2021-01-17] MEDS: VANCOMYCIN 500MG+NS 100ML IVPB IV SCH (21:36)
[2021-01-18] VITALS (24 sets, daily range): BP systolic 106–169; BP diastolic 51–85
[2021-01-18] MEDS: INSULIN HUMULIN R 100 UNIT/ML 3ML SQ SCH ×6 (04:00→23:55)
[2021-01-18] MEDS: CHLORHEXIDINE GLUCONATE 473 ML MOUTHWASH MM SCH ×4 (04:55→20:06)
[2021-01-18] MEDS: METOCLOPRAMIDE 10 MG/2 ML VIAL IVP SCH ×3 (04:57→20:06)
[2021-01-18] MEDS: LEVOTHYROXINE 125 MCG TABLET PO SCH (04:57)
[2021-01-18] MEDS: MIDODRINE HCL 5 MG TABLET PO SCH ×3 (05:45→20:06)
[2021-01-18 06:43] LABS: HEMATOCRIT 29.3 % (36-48); MEAN CORPUSCULAR HEMOGLOBIN 26.8 pg (27.0-33.0); MEAN CORPUSCULAR HGB CONC 32.4 g/dL (32.0-36.0); MEAN CORPUSCULAR VOLUME 82.8 fL (79-99); RED BLOOD CELL COUNT(AUTO) 3.54 MIL/uL (4.00-5.50); RED CELL DISTRIBUTION WIDTH 18.6 % (11.0-15.5); WHITE BLOOD COUNT (AUTO) 14.5 K/uL (4.8-10.8)
[2021-01-18 07:06] LABS: ABG BASE EXCESS 10.4 mmol/L (-2.0-3.0); ABG OXYGEN SATURATION 95.2 % (95.0-99.0); ABG PCO2 41 mmHg (32-45)
[2021-01-18 07:13] LABS: ALBUMIN 1.4 g/dL (3.5-5.0); BILIRUBIN,DIRECT 2.3 mg/dL (0.0-0.3); BILIRUBIN,TOTAL 3.2 mg/dL (0.2-1.0); CREATININE 0.9 mg/dL (0.5-1.5); POTASSIUM 4.1 mmol/L (3.5-5.1); TOTAL PROTEIN, SERUM 4.5 g/dL (6.0-8.3)
[2021-01-18] MEDS: AMIODARONE 200 MG TABLET PO SCH (09:00)
[2021-01-18] MEDS: ENOXAPARIN SODIUM 100 MG/1 ML SQ SCH (09:00)
[2021-01-18] MEDS: FAMOTIDINE 20MG TAB PO SCH (09:00)
[2021-01-18] MEDS: CLONIDINE HCL 0.1 MG TABLET PO SCH ×2 (09:00→20:05)
[2021-01-18] MEDS: PREDNISONE 20 MG TABLET PO SCH (09:00)
[2021-01-18] MEDS: POLYETHYLENE GLYCOL 3350 17 GM POWD.PACK PO SCH (09:00)
[2021-01-18] MEDS: INSULIN GLARGINE 100 UNITS/ML 10 ML VIAL SQ SCH ×2 (09:00→20:49)
[2021-01-18] MEDS: ASPIRIN 81MG CHEW TAB PO SCH (09:00)
[2021-01-18] MEDS: SERTRALINE HCL 50 MG TABLET PO SCH (09:00)
[2021-01-18] MEDS: MONTELUKAST SODIUM 10 MG TAB PO SCH (09:00)
[2021-01-18] MEDS: MEROPENEM 1 GM VIAL IVP SCH ×3 (09:23→23:56)
[2021-01-18] MEDS: 0.9% NACL 250ML 250 ML IV SCH ×2 (09:23→20:47)
[2021-01-18] MEDS: VANCOMYCIN 500MG+NS 100ML IVPB IV SCH ×2 (09:23→20:47)
[2021-01-18] MEDS: NYSTATIN 15 GM POWDER TP SCH ×2 (09:23→20:05)
[2021-01-18] MEDS: BALSAM PERU/CASTOR OIL 60 GM TUBE TP SCH ×2 (09:26→20:06)
[2021-01-18] MEDS: ARTIFICIAL TEARS 3.5 GM OINTMENT OU SCH ×2 (09:26→20:04)
[2021-01-18] MEDS: HONEY 1 APPL/ML TUBE TP SCH (09:26)
[2021-01-18] MEDS: FUROSEMIDE 40MG VIAL IV SCH ×2 (13:22→23:56)
[2021-01-18] MEDS ORDERED: CLINIMIX-E 5%AA /D15%W 2000ML 2,000 ML IV SCH (17:30)
[2021-01-18] MEDS ORDERED: 0.9%NACL 100ML 100 ML ONE (19:55)
[2021-01-18] MEDS: FLUCONAZOLE 400 MG/NS 200 ML 200 ML IV SCH (20:03)
[2021-01-19] VITALS (27 sets, daily range): BP systolic 98–173; BP diastolic 61–102
[2021-01-19] MEDS: CHLORHEXIDINE GLUCONATE 473 ML MOUTHWASH MM SCH ×4 (05:17→20:44)
[2021-01-19] MEDS: INSULIN HUMULIN R 100 UNIT/ML 3ML SQ SCH ×5 (05:27→20:44)
[2021-01-19] MEDS: METOCLOPRAMIDE 10 MG/2 ML VIAL IVP SCH ×3 (05:27→20:43)
[2021-01-19] MEDS: MIDODRINE HCL 5 MG TABLET PO SCH ×3 (05:28→20:44)
[2021-01-19] MEDS: LEVOTHYROXINE 125 MCG TABLET PO SCH (05:28)
[2021-01-19] MEDS: MEROPENEM 1 GM VIAL IVP SCH ×2 (07:50→13:50)
[2021-01-19] MEDS: 0.9% NACL 250ML 250 ML IV SCH ×2 (07:50→19:52)
[2021-01-19] MEDS: MONTELUKAST SODIUM 10 MG TAB PO SCH (07:51)
[2021-01-19] MEDS: ASPIRIN 81MG CHEW TAB PO SCH (07:51)
[2021-01-19] MEDS: PREDNISONE 20 MG TABLET PO SCH (07:51)
[2021-01-19] MEDS: SERTRALINE HCL 50 MG TABLET PO SCH (07:51)
[2021-01-19] MEDS: VANCOMYCIN 750MG VIAL IVPB SCH (07:51)
[2021-01-19] MEDS: CLONIDINE HCL 0.1 MG TABLET PO SCH ×2 (07:52→20:42)
[2021-01-19] MEDS: POLYETHYLENE GLYCOL 3350 17 GM POWD.PACK PO SCH (07:52)
[2021-01-19] MEDS: AMIODARONE 200 MG TABLET PO SCH (07:52)
[2021-01-19] MEDS: FAMOTIDINE 20MG TAB PO SCH (07:52)
[2021-01-19 07:53] LABS: HEMATOCRIT 27.4 % (36-48); MEAN CORPUSCULAR HEMOGLOBIN 27.3 pg (27.0-33.0); MEAN CORPUSCULAR HGB CONC 33.2 g/dL (32.0-36.0); MEAN CORPUSCULAR VOLUME 82.3 fL (79-99); RED BLOOD CELL COUNT(AUTO) 3.33 MIL/uL (4.00-5.50); RED CELL DISTRIBUTION WIDTH 18.8 % (11.0-15.5); WHITE BLOOD COUNT (AUTO) 11.8 K/uL (4.8-10.8)
[2021-01-19] MEDS: ENOXAPARIN SODIUM 100 MG/1 ML SQ SCH (07:58)
[2021-01-19] MEDS: NYSTATIN 15 GM POWDER TP SCH ×2 (07:58→20:43)
[2021-01-19] MEDS: INSULIN GLARGINE 100 UNITS/ML 10 ML VIAL SQ SCH ×2 (08:10→20:43)
[2021-01-19 08:31] LABS: ALBUMIN 1.2 g/dL (3.5-5.0); BILIRUBIN,TOTAL 2.4 mg/dL (0.2-1.0); CREATININE 1.1 mg/dL (0.5-1.5); MAGNESIUM 2.1 mg/dL (1.80-2.40); POTASSIUM 4.2 mmol/L (3.5-5.1); TOTAL PROTEIN, SERUM 4.6 g/dL (6.0-8.3)
[2021-01-19] MEDS: HONEY 1 APPL/ML TUBE TP SCH (08:46)
[2021-01-19] MEDS: ARTIFICIAL TEARS 3.5 GM OINTMENT OU SCH ×2 (08:48→20:42)
[2021-01-19] MEDS: BALSAM PERU/CASTOR OIL 60 GM TUBE TP SCH ×2 (08:48→20:43)
[2021-01-19] MEDS: FUROSEMIDE 40MG VIAL IV SCH (13:49)
[2021-01-19] MEDS ORDERED: AMIODARONE 150MG VIAL ONE (14:30)
[2021-01-19] MEDS ORDERED: 0.9%NACL 100ML 100 ML ONE (14:31)
[2021-01-19] MEDS ORDERED: AMIODARONE 900MG VIAL 900 MG in DEXTROSE 5%-WATER 500 ML IV SCH (14:41)
[2021-01-19] MEDS ORDERED: AMIODARONE 900MG VIAL 150 MG in DEXTROSE 5%-WATER 100 ML IV SCH (15:00)
[2021-01-19] MEDS ORDERED: AMIODARONE 900MG VIAL 360 MG in DEXTROSE 5%-WATER 200 ML IV SCH (15:30)
[2021-01-19 16:31] LABS: INR 1.12 (0.85-1.15); PROTHROMBIN TIME 12.1 SEC (9.6-11.6)
[2021-01-19 16:33] LABS: PARTIAL THROMBOPLASTIN TIME 35.6 SEC (26.3-35.5)
[2021-01-19] MEDS: AMIODARONE 900MG VIAL 450 MG in DEXTROSE 5%-WATER 250 ML IV SCH (20:40)
[2021-01-19] MEDS: FLUCONAZOLE 400 MG/NS 200 ML 200 ML IV SCH (20:41)
[2021-01-20] VITALS (93 sets, daily range): BP systolic 40–164; BP diastolic 22–96
[2021-01-20] MEDS: ALBUTEROL INHALER 90MCG/INH IH SCH
[2021-01-20] MEDS: MEROPENEM 1 GM VIAL IVP SCH ×3 (00:51→13:04)
[2021-01-20] MEDS: FUROSEMIDE 40MG VIAL IV SCH (00:52)
[2021-01-20] MEDS: INSULIN HUMULIN R 100 UNIT/ML 3ML SQ SCH ×6 (00:53→20:00)
[2021-01-20] MEDS: CHLORHEXIDINE GLUCONATE 473 ML MOUTHWASH MM SCH ×4 (03:58→22:03)
[2021-01-20] MEDS ORDERED: NOREPINEPHRIN 4MG/NS 250ML 250 ML IV ONE (04:12)
[2021-01-20] MEDS: LEVOTHYROXINE 125 MCG TABLET PO SCH (06:45)
[2021-01-20] MEDS: MIDODRINE HCL 5 MG TABLET PO SCH ×3 (06:45→21:48)
[2021-01-20] MEDS: METOCLOPRAMIDE 10 MG/2 ML VIAL IVP SCH ×3 (06:45→22:27)
[2021-01-20] MEDS: 0.9% NACL 250ML 250 ML IV SCH ×2 (07:55→21:00)
[2021-01-20] MEDS: VANCOMYCIN 750MG VIAL IVPB SCH ×2 (07:56→09:00)
[2021-01-20] MEDS: FAMOTIDINE 20MG TAB PO SCH (07:57)
[2021-01-20] MEDS: MONTELUKAST SODIUM 10 MG TAB PO SCH (07:57)
[2021-01-20] MEDS: NYSTATIN 15 GM POWDER TP SCH ×2 (07:57→22:02)
[2021-01-20] MEDS: SERTRALINE HCL 50 MG TABLET PO SCH (07:57)
[2021-01-20] MEDS: PREDNISONE 20 MG TABLET PO SCH (07:57)
[2021-01-20] MEDS: ENOXAPARIN SODIUM 100 MG/1 ML SQ SCH (07:58)
[2021-01-20] MEDS: POLYETHYLENE GLYCOL 3350 17 GM POWD.PACK PO SCH (07:58)
[2021-01-20] MEDS: ASPIRIN 81MG CHEW TAB PO SCH (07:58)
[2021-01-20] MEDS: INSULIN GLARGINE 100 UNITS/ML 10 ML VIAL SQ SCH ×2 (08:03→21:47)
[2021-01-20] MEDS: ARTIFICIAL TEARS 3.5 GM OINTMENT OU SCH ×2 (08:07→22:05)
[2021-01-20] MEDS: BALSAM PERU/CASTOR OIL 60 GM TUBE TP SCH ×2 (08:07→22:03)
[2021-01-20] MEDS: HONEY 1 APPL/ML TUBE TP SCH (08:07)
[2021-01-20] MEDS: CLONIDINE HCL 0.1 MG TABLET PO SCH ×2 (08:23→21:00)
[2021-01-20 08:52] LABS: BASOPHILS % (AUTO) 0.2 % (0.0-5.0); EOSINOPHILS % (AUTO) 2.5 % (0.0-8.0); HEMATOCRIT 26.9 % (36-48); MEAN CORPUSCULAR HEMOGLOBIN 27.9 pg (27.0-33.0); MEAN CORPUSCULAR HGB CONC 33.5 g/dL (32.0-36.0); MEAN CORPUSCULAR VOLUME 83.3 fL (79-99); MONOCYTES % (AUTO) 3.7 % (3.0-13.0); NEUTROPHILS % (AUTO) 84.1 % (40.0-77.0); PLATELET COUNT (AUTO) 132 K/uL (130-400); RED BLOOD CELL COUNT(AUTO) 3.23 MIL/uL (4.00-5.50); RED CELL DISTRIBUTION WIDTH 18.9 % (11.0-15.5); WHITE BLOOD COUNT (AUTO) 16.6 K/uL (4.8-10.8)
[2021-01-20 09:24] LABS: ALBUMIN 1.2 g/dL (3.5-5.0); BILIRUBIN,DIRECT 1.7 mg/dL (0.0-0.3); BILIRUBIN,TOTAL 2.2 mg/dL (0.2-1.0); CREATININE 1.4 mg/dL (0.5-1.5); MAGNESIUM 2.3 mg/dL (1.80-2.40); PHOSPHORUS 6.3 mg/dL (2.5-4.9); POTASSIUM 4.4 mmol/L (3.5-5.1); TOTAL PROTEIN, SERUM 4.5 g/dL (6.0-8.3)
[2021-01-20] MEDS ORDERED: RENAL DOSE IV SCH (10:00)
[2021-01-20] MEDS: AMIODARONE 900MG VIAL 450 MG in DEXTROSE 5%-WATER 250 ML IV SCH (18:13)
[2021-01-20] MEDS: FLUCONAZOLE 400 MG/NS 200 ML 200 ML IV SCH (21:45)
[2021-01-21] VITALS (51 sets, daily range): BP systolic 86–171; BP diastolic 44–102
[2021-01-21] MEDS: INSULIN HUMULIN R 100 UNIT/ML 3ML SQ SCH ×6 (00:23→21:46)
[2021-01-21] MEDS: MEROPENEM 1 GM VIAL IVP SCH ×3 (02:02→15:24)
[2021-01-21] MEDS: METOCLOPRAMIDE 10 MG/2 ML VIAL IVP SCH ×3 (05:18→23:12)
[2021-01-21] MEDS: LEVOTHYROXINE 125 MCG TABLET PO SCH (05:19)
[2021-01-21] MEDS: CHLORHEXIDINE GLUCONATE 473 ML MOUTHWASH MM SCH ×4 (05:20→22:11)
[2021-01-21] MEDS: MIDODRINE HCL 5 MG TABLET PO SCH ×3 (05:59→22:00)
[2021-01-21 07:27] LABS: HEMATOCRIT 26.5 % (36-48); MEAN CORPUSCULAR HEMOGLOBIN 27.6 pg (27.0-33.0); MEAN CORPUSCULAR HGB CONC 33.6 g/dL (32.0-36.0); RED BLOOD CELL COUNT(AUTO) 3.23 MIL/uL (4.00-5.50); RED CELL DISTRIBUTION WIDTH 19.2 % (11.0-15.5); WHITE BLOOD COUNT (AUTO) 13.2 K/uL (4.8-10.8)
[2021-01-21 07:44] LABS: ALBUMIN 1.2 g/dL (3.5-5.0); BILIRUBIN,DIRECT 1.4 mg/dL (0.0-0.3); CREATININE 1.8 mg/dL (0.5-1.5); MAGNESIUM 2.4 mg/dL (1.80-2.40); POTASSIUM 5.3 mmol/L (3.5-5.1); TOTAL PROTEIN, SERUM 4.6 g/dL (6.0-8.3)
[2021-01-21] MEDS: 0.9% NACL 250ML 250 ML IV SCH ×2 (09:00→21:00)
[2021-01-21] MEDS ORDERED: VANCOMYCIN 750MG VIAL IVPB SCH (09:00)
[2021-01-21] MEDS: POLYETHYLENE GLYCOL 3350 17 GM POWD.PACK PO SCH (09:00)
[2021-01-21] MEDS: ASPIRIN 81MG CHEW TAB PO SCH (09:32)
[2021-01-21] MEDS: ARTIFICIAL TEARS 3.5 GM OINTMENT OU SCH ×2 (09:32→21:51)
[2021-01-21] MEDS: SERTRALINE HCL 50 MG TABLET PO SCH (09:33)
[2021-01-21] MEDS: MONTELUKAST SODIUM 10 MG TAB PO SCH (09:33)
[2021-01-21] MEDS: CLONIDINE HCL 0.1 MG TABLET PO SCH ×2 (09:33→21:54)
[2021-01-21] MEDS: FAMOTIDINE 20MG TAB PO SCH (09:33)
[2021-01-21] MEDS: PREDNISONE 20 MG TABLET PO SCH (09:33)
[2021-01-21] MEDS: INSULIN GLARGINE 100 UNITS/ML 10 ML VIAL SQ SCH ×2 (09:35→21:43)
[2021-01-21] MEDS: ENOXAPARIN SODIUM 100 MG/1 ML SQ SCH (09:36)
[2021-01-21] MEDS: HONEY 1 APPL/ML TUBE TP SCH (09:36)
[2021-01-21] MEDS: NYSTATIN 15 GM POWDER TP SCH ×2 (09:36→21:52)
[2021-01-21] MEDS: BALSAM PERU/CASTOR OIL 60 GM TUBE TP SCH ×2 (09:36→21:52)
[2021-01-21] MEDS: AMIODARONE 900MG VIAL 450 MG in DEXTROSE 5%-WATER 250 ML IV SCH (11:52)
[2021-01-21 16:13] LABS: HEMATOCRIT 25.8 % (36-48)
[2021-01-21 16:19] LABS: CREATININE 1.9 mg/dL (0.5-1.5)
[2021-01-21] MEDS: 0.9% NACL 500ML IV.SOLN 500 ML IV SCH ×3 (16:30→17:45)
[2021-01-21] MEDS ORDERED: KAYEXALATE 15GM/60ML PO PRN (17:30)
[2021-01-21] MEDS: AMIODARONE 200 MG TABLET PO SCH (21:40)
[2021-01-21] MEDS: PANTOPRAZOLE 40 MG/VIAL IVP SCH (21:48)
[2021-01-22] VITALS (35 sets, daily range): BP systolic 104–143; BP diastolic 52–85
[2021-01-22] MEDS: MEROPENEM 1 GM VIAL IVP SCH ×3 (01:28→16:45)
[2021-01-22] MEDS: INSULIN HUMULIN R 100 UNIT/ML 3ML SQ SCH ×6 (04:00→21:48)
[2021-01-22] MEDS: METOCLOPRAMIDE 10 MG/2 ML VIAL IVP SCH ×3 (05:48→21:37)
[2021-01-22 05:57] LABS: HEMATOCRIT 26.5 % (36-48); MEAN CORPUSCULAR HEMOGLOBIN 27.4 pg (27.0-33.0); MEAN CORPUSCULAR HGB CONC 33.6 g/dL (32.0-36.0); MEAN CORPUSCULAR VOLUME 81.5 fL (79-99); RED BLOOD CELL COUNT(AUTO) 3.25 MIL/uL (4.00-5.50); RED CELL DISTRIBUTION WIDTH 19.8 % (11.0-15.5); WHITE BLOOD COUNT (AUTO) 12.6 K/uL (4.8-10.8)
[2021-01-22] MEDS: MIDODRINE HCL 5 MG TABLET PO SCH ×3 (06:00→22:00)
[2021-01-22 06:27] LABS: ALBUMIN 1.2 g/dL (3.5-5.0); BILIRUBIN,TOTAL 1.8 mg/dL (0.2-1.0); CREATININE 1.9 mg/dL (0.5-1.5); POTASSIUM 5.8 mmol/L (3.5-5.1); TOTAL PROTEIN, SERUM 4.7 g/dL (6.0-8.3)
[2021-01-22] MEDS: LEVOTHYROXINE 125 MCG TABLET PO SCH (06:27)
[2021-01-22] MEDS: CHLORHEXIDINE GLUCONATE 473 ML MOUTHWASH MM SCH ×4 (06:28→21:48)
[2021-01-22] MEDS ORDERED: KAYEXALATE 15GM/60ML ONE (07:22)
[2021-01-22] MEDS: 0.9% NACL 250ML 250 ML IV SCH ×2 (09:00→21:00)
[2021-01-22 09:29] LABS: INR 0.93 (0.85-1.15); PROTHROMBIN TIME 10.2 SEC (9.6-11.6)
[2021-01-22 09:30] LABS: PARTIAL THROMBOPLASTIN TIME 29.9 SEC (26.3-35.5)
[2021-01-22] MEDS: PANTOPRAZOLE 40 MG/VIAL IVP SCH ×2 (09:59→21:34)
[2021-01-22] MEDS: ASPIRIN 81MG CHEW TAB PO SCH (10:00)
[2021-01-22] MEDS: AMIODARONE 200 MG TABLET PO SCH ×2 (10:00→21:37)
[2021-01-22] MEDS: SERTRALINE HCL 50 MG TABLET PO SCH (10:00)
[2021-01-22] MEDS: PREDNISONE 20 MG TABLET PO SCH (10:01)
[2021-01-22] MEDS: CLONIDINE HCL 0.1 MG TABLET PO SCH ×2 (10:01→21:00)
[2021-01-22] MEDS: MONTELUKAST SODIUM 10 MG TAB PO SCH (10:01)
[2021-01-22] MEDS: POLYETHYLENE GLYCOL 3350 17 GM POWD.PACK PO SCH (10:01)
[2021-01-22] MEDS: ARTIFICIAL TEARS 3.5 GM OINTMENT OU SCH ×2 (10:02→21:48)
[2021-01-22] MEDS: NYSTATIN 15 GM POWDER TP SCH ×2 (10:02→21:49)
[2021-01-22] MEDS: BALSAM PERU/CASTOR OIL 60 GM TUBE TP SCH ×2 (10:02→21:49)
[2021-01-22] MEDS: INSULIN GLARGINE 100 UNITS/ML 10 ML VIAL SQ SCH ×2 (10:03→21:34)
[2021-01-22] MEDS ORDERED: CALCIUM GLUC 1GM 1 GM in 0.9%NACL 50ML 50 ML IV SCH (15:30)
[2021-01-22] MEDS ORDERED: SODIUM BICARB 50MEQ 50ML VIAL IV SCH (15:30)
[2021-01-22] MEDS ORDERED: KAYEXALATE 15GM/60ML PO SCH ×2 (15:30→20:18)
[2021-01-22] MEDS: KAYEXALATE 15GM/60ML PO SCH (21:00)
[2021-01-23] VITALS (30 sets, daily range): BP systolic 99–147; BP diastolic 47–73
[2021-01-23] MEDS: KAYEXALATE 15GM/60ML PO SCH (00:01)
[2021-01-23] MEDS: INSULIN HUMULIN R 100 UNIT/ML 3ML SQ SCH ×6 (02:01→20:00)
[2021-01-23] MEDS: MEROPENEM 1 GM VIAL IVP SCH ×3 (02:02→17:26)
[2021-01-23 04:00] LABS: MEAN CORPUSCULAR HEMOGLOBIN 26.9 pg (27.0-33.0); MEAN CORPUSCULAR HGB CONC 32.9 g/dL (32.0-36.0); MEAN CORPUSCULAR VOLUME 81.6 fL (79-99); RED BLOOD CELL COUNT(AUTO) 2.94 MIL/uL (4.00-5.50); RED CELL DISTRIBUTION WIDTH 19.9 % (11.0-15.5); WHITE BLOOD COUNT (AUTO) 9.7 K/uL (4.8-10.8)
[2021-01-23 04:10] LABS: INR 0.94 (0.85-1.15); PROTHROMBIN TIME 10.3 SEC (9.6-11.6)
[2021-01-23 04:15] LABS: ALBUMIN 1.2 g/dL (3.5-5.0); BILIRUBIN,TOTAL 1.6 mg/dL (0.2-1.0); CREATININE 2.2 mg/dL (0.5-1.5); POTASSIUM 4.9 mmol/L (3.5-5.1); TOTAL PROTEIN, SERUM 4.5 g/dL (6.0-8.3)
[2021-01-23] MEDS: CHLORHEXIDINE GLUCONATE 473 ML MOUTHWASH MM SCH ×4 (04:46→21:51)
[2021-01-23] MEDS: METOCLOPRAMIDE 10 MG/2 ML VIAL IVP SCH ×3 (05:23→21:54)
[2021-01-23] MEDS: LEVOTHYROXINE 125 MCG TABLET PO SCH (06:18)
[2021-01-23] MEDS: MIDODRINE HCL 5 MG TABLET PO SCH ×3 (06:18→21:50)
[2021-01-23] MEDS: 0.9% NACL 250ML 250 ML IV SCH ×2 (08:17→21:00)
[2021-01-23] MEDS: MONTELUKAST SODIUM 10 MG TAB PO SCH (09:00)
[2021-01-23] MEDS: POLYETHYLENE GLYCOL 3350 17 GM POWD.PACK PO SCH (09:00)
[2021-01-23] MEDS: PREDNISONE 20 MG TABLET PO SCH (09:00)
[2021-01-23] MEDS: SERTRALINE HCL 50 MG TABLET PO SCH (09:00)
[2021-01-23] MEDS: INSULIN GLARGINE 100 UNITS/ML 10 ML VIAL SQ SCH ×2 (09:00→21:00)
[2021-01-23] MEDS: CLONIDINE HCL 0.1 MG TABLET PO SCH ×2 (09:00→21:00)
[2021-01-23] MEDS: ASPIRIN 81MG CHEW TAB PO SCH (09:00)
[2021-01-23] MEDS: AMIODARONE 200 MG TABLET PO SCH ×2 (09:00→20:58)
[2021-01-23] MEDS: PANTOPRAZOLE 40 MG/VIAL IVP SCH ×2 (10:23→20:57)
[2021-01-23] MEDS: ARTIFICIAL TEARS 3.5 GM OINTMENT OU SCH ×2 (10:23→21:30)
[2021-01-23] MEDS: BALSAM PERU/CASTOR OIL 60 GM TUBE TP SCH ×2 (10:24→21:30)
[2021-01-23] MEDS: NYSTATIN 15 GM POWDER TP SCH ×2 (10:24→21:30)
[2021-01-23] MEDS: DEXTROSE 50%-WATER 50 ML DISP.SYRIN IV PRN (17:51)
[2021-01-23] MEDS ORDERED: FUROSEMIDE 100MG VIAL IVP SCH (20:00)
[2021-01-24] VITALS (26 sets, daily range): BP systolic 90–190; BP diastolic 51–90
[2021-01-24] MEDS: MEROPENEM 1 GM VIAL IVP SCH ×3 (02:08→16:53)
[2021-01-24] MEDS: INSULIN HUMULIN R 100 UNIT/ML 3ML SQ SCH ×6 (04:00→22:07)
[2021-01-24 04:24] LABS: HEMATOCRIT 25.6 % (36-48); MEAN CORPUSCULAR HEMOGLOBIN 27.5 pg (27.0-33.0); MEAN CORPUSCULAR HGB CONC 32.8 g/dL (32.0-36.0); MEAN CORPUSCULAR VOLUME 83.9 fL (79-99); PLATELET COUNT (AUTO) 75 K/uL (130-400); RED BLOOD CELL COUNT(AUTO) 3.05 MIL/uL (4.00-5.50); RED CELL DISTRIBUTION WIDTH 20.8 % (11.0-15.5); WHITE BLOOD COUNT (AUTO) 6.9 K/uL (4.8-10.8)
[2021-01-24 04:34] LABS: CREATININE 2.3 mg/dL (0.5-1.5); POTASSIUM 4.2 mmol/L (3.5-5.1)
[2021-01-24] MEDS: CHLORHEXIDINE GLUCONATE 473 ML MOUTHWASH MM SCH ×4 (04:52→22:23)
[2021-01-24] MEDS: MIDODRINE HCL 5 MG TABLET PO SCH ×3 (06:00→22:22)
[2021-01-24] MEDS: LEVOTHYROXINE 125 MCG TABLET PO SCH (06:02)
[2021-01-24] MEDS: METOCLOPRAMIDE 10 MG/2 ML VIAL IVP SCH ×3 (06:02→22:00)
[2021-01-24] MEDS: DEXTROSE 50%-WATER 50 ML DISP.SYRIN IV PRN ×3 (08:35→22:22)
[2021-01-24] MEDS: 0.9% NACL 250ML 250 ML IV SCH ×2 (09:00→21:00)
[2021-01-24] MEDS: INSULIN GLARGINE 100 UNITS/ML 10 ML VIAL SQ SCH ×2 (09:00→21:00)
[2021-01-24] MEDS: ARTIFICIAL TEARS 3.5 GM OINTMENT OU SCH ×2 (09:00→22:10)
[2021-01-24] MEDS: BALSAM PERU/CASTOR OIL 60 GM TUBE TP SCH ×2 (09:00→22:10)
[2021-01-24] MEDS ORDERED: MIDAZOLAM HCL 1 MG/ML 2ML VIAL ONE ×2 (12:16→12:47)
[2021-01-24] MEDS ORDERED: FENTANYL CITRATE PF 50 MCG/1 ML 2ML VIAL ONE (12:17)
[2021-01-24] MEDS ORDERED: NALOXONE HCL 0.4 MG/1 ML ML IVP SCH (13:30)
[2021-01-24] MEDS ORDERED: MIDAZOLAM HCL 1 MG/ML 2ML VIAL IVP SCH (14:00)
[2021-01-24] MEDS ORDERED: FENTANYL CITRATE PF 50 MCG/1 ML 2ML VIAL IVP SCH (14:00)
[2021-01-24] MEDS: SERTRALINE HCL 50 MG TABLET PO SCH (14:22)
[2021-01-24] MEDS: PANTOPRAZOLE 40 MG/VIAL IVP SCH ×2 (14:22→22:22)
[2021-01-24] MEDS: MONTELUKAST SODIUM 10 MG TAB PO SCH (14:24)
[2021-01-24] MEDS: ASPIRIN 81MG CHEW TAB PO SCH (14:24)
[2021-01-24] MEDS: CLONIDINE HCL 0.1 MG TABLET PO SCH ×2 (14:25→21:00)
[2021-01-24] MEDS: POLYETHYLENE GLYCOL 3350 17 GM POWD.PACK PO SCH (14:26)
[2021-01-24] MEDS ORDERED: FENTANYL CITRATE PF 50 MCG/1 ML 2ML VIAL IVP ONE (14:30)
[2021-01-24] MEDS ORDERED: MIDAZOLAM HCL 1 MG/ML 2ML VIAL IVP ONE (14:30)
[2021-01-24] MEDS: NYSTATIN 15 GM POWDER TP SCH ×2 (14:30→22:22)
[2021-01-24] MEDS: AMIODARONE 200 MG TABLET PO SCH ×2 (14:36→22:22)
[2021-01-24] MEDS: PREDNISONE 20 MG TABLET PO SCH (14:37)
[2021-01-24] MEDS: ALBUTEROL INHALER 90MCG/INH IH SCH ×7 (21:40→21:46)
[2021-01-24] MEDS ORDERED: FUROSEMIDE 100MG VIAL ONE (22:42)
[2021-01-24] MEDS ORDERED: 0.9%NACL 100ML 100 ML ONE (22:42)
[2021-01-24] MEDS: FUROSEMIDE 100MG VIAL IVP ONE (23:04)
[2021-01-25] VITALS (49 sets, daily range): BP systolic 96–173; BP diastolic 39–79
[2021-01-25] MEDS: ALBUTEROL INHALER 90MCG/INH IH SCH ×4 (00:25→17:33)
[2021-01-25] MEDS: FUROSEMIDE 100MG VIAL IVP ONE (00:26)
[2021-01-25] MEDS: FUROSEMIDE 100MG VIAL 100 MG in 0.9%NACL 100ML 100 ML IV SCH ×5 (00:38→22:38)
[2021-01-25] MEDS: MEROPENEM 1 GM VIAL IVP SCH ×3 (00:53→15:59)
[2021-01-25] MEDS: CLONIDINE HCL 0.1 MG TABLET PO SCH ×3 (00:55→21:00)
[2021-01-25] MEDS: CHLORHEXIDINE GLUCONATE 473 ML MOUTHWASH MM SCH ×4 (03:10→21:59)
[2021-01-25] MEDS: METOCLOPRAMIDE 10 MG/2 ML VIAL IVP SCH ×3 (03:50→19:43)
[2021-01-25] MEDS: INSULIN HUMULIN R 100 UNIT/ML 3ML SQ SCH ×6 (03:59→19:43)
[2021-01-25 04:13] LABS: HEMATOCRIT 22.3 % (36-48); MEAN CORPUSCULAR HGB CONC 33.2 g/dL (32.0-36.0); MEAN CORPUSCULAR VOLUME 84.5 fL (79-99); RED BLOOD CELL COUNT(AUTO) 2.64 MIL/uL (4.00-5.50); RED CELL DISTRIBUTION WIDTH 20.9 % (11.0-15.5); WHITE BLOOD COUNT (AUTO) 4.7 K/uL (4.8-10.8)
[2021-01-25 04:30] LABS: CREATININE 2.6 mg/dL (0.5-1.5); POTASSIUM 3.7 mmol/L (3.5-5.1)
[2021-01-25] MEDS: MIDODRINE HCL 5 MG TABLET PO SCH (05:26)
[2021-01-25] MEDS ORDERED: FUROSEMIDE 100MG VIAL ONE (05:34)
[2021-01-25] MEDS ORDERED: 0.9%NACL 100ML 100 ML ONE (05:35)
[2021-01-25] MEDS: LEVOTHYROXINE 125 MCG TABLET PO SCH (05:37)
[2021-01-25] MEDS: POTASSIUM CHLORIDE 20MEQ/100ML 100 ML IV PRN (05:38)
[2021-01-25] MEDS: 0.9% NACL 250ML 250 ML IV SCH ×2 (07:22→19:41)
[2021-01-25] MEDS: NYSTATIN 15 GM POWDER TP SCH ×2 (08:04→19:42)
[2021-01-25] MEDS: POLYETHYLENE GLYCOL 3350 17 GM POWD.PACK PO SCH (08:04)
[2021-01-25] MEDS: SERTRALINE HCL 50 MG TABLET PO SCH (08:05)
[2021-01-25] MEDS: AMIODARONE 200 MG TABLET PO SCH ×2 (08:06→21:58)
[2021-01-25] MEDS: PANTOPRAZOLE 40 MG/VIAL IVP SCH ×2 (08:06→21:59)
[2021-01-25] MEDS: INSULIN GLARGINE 100 UNITS/ML 10 ML VIAL SQ SCH ×2 (08:07→19:44)
[2021-01-25] MEDS: ASPIRIN 81MG CHEW TAB PO SCH (08:07)
[2021-01-25] MEDS: ARTIFICIAL TEARS 3.5 GM OINTMENT OU SCH ×2 (08:09→19:45)
[2021-01-25] MEDS: PREDNISONE 20 MG TABLET PO SCH (08:10)
[2021-01-25] MEDS: MONTELUKAST SODIUM 10 MG TAB PO SCH (08:10)
[2021-01-25] MEDS: BALSAM PERU/CASTOR OIL 60 GM TUBE TP SCH ×2 (09:38→19:42)
[2021-01-26] VITALS (46 sets, daily range): BP systolic 105–140; BP diastolic 52–96
[2021-01-26] MEDS: MEROPENEM 1 GM VIAL IVP SCH ×3 (01:13→16:19)
[2021-01-26] MEDS: INSULIN HUMULIN R 100 UNIT/ML 3ML SQ SCH ×7 (04:00→23:58)
[2021-01-26 04:10] LABS: HEMATOCRIT 23.1 % (36-48); MEAN CORPUSCULAR HEMOGLOBIN 27.6 pg (27.0-33.0); MEAN CORPUSCULAR HGB CONC 32.9 g/dL (32.0-36.0); RED BLOOD CELL COUNT(AUTO) 2.75 MIL/uL (4.00-5.50); RED CELL DISTRIBUTION WIDTH 21.5 % (11.0-15.5); WHITE BLOOD COUNT (AUTO) 4.4 K/uL (4.8-10.8)
[2021-01-26] MEDS: CHLORHEXIDINE GLUCONATE 473 ML MOUTHWASH MM SCH ×4 (04:20→20:14)
[2021-01-26] MEDS: METOCLOPRAMIDE 10 MG/2 ML VIAL IVP SCH ×3 (04:21→20:14)
[2021-01-26] MEDS: ALBUTEROL INHALER 90MCG/INH IH SCH ×5 (04:21→23:58)
[2021-01-26 04:27] LABS: ALBUMIN 1.2 g/dL (3.5-5.0); BILIRUBIN,TOTAL 1.7 mg/dL (0.2-1.0); CREATININE 2.8 mg/dL (0.5-1.5); POTASSIUM 3.1 mmol/L (3.5-5.1); TOTAL PROTEIN, SERUM 4.1 g/dL (6.0-8.3)
[2021-01-26] MEDS: LEVOTHYROXINE 125 MCG TABLET PO SCH (04:40)
[2021-01-26] MEDS: POTASSIUM CHLORIDE 20MEQ/100ML 100 ML IV PRN ×2 (04:41→07:16)
[2021-01-26] MEDS: FUROSEMIDE 100MG VIAL 100 MG in 0.9%NACL 100ML 100 ML IV SCH ×3 (06:05→18:05)
[2021-01-26] MEDS: ACETAMINOPHEN 650 MG/20.3 ML UDCUP PO PRN (07:16)
[2021-01-26] MEDS: 0.9% NACL 250ML 250 ML IV SCH ×2 (07:58→20:08)
[2021-01-26] MEDS: POLYETHYLENE GLYCOL 3350 17 GM POWD.PACK PO SCH (07:59)
[2021-01-26] MEDS: PANTOPRAZOLE 40 MG/VIAL IVP SCH ×2 (08:17→20:10)
[2021-01-26] MEDS: AMIODARONE 200 MG TABLET PO SCH ×2 (08:17→20:13)
[2021-01-26] MEDS: SERTRALINE HCL 50 MG TABLET PO SCH (08:18)
[2021-01-26] MEDS: ASPIRIN 81MG CHEW TAB PO SCH (08:18)
[2021-01-26] MEDS: MONTELUKAST SODIUM 10 MG TAB PO SCH (08:18)
[2021-01-26] MEDS: PREDNISONE 20 MG TABLET PO SCH (08:18)
[2021-01-26] MEDS: INSULIN GLARGINE 100 UNITS/ML 10 ML VIAL SQ SCH ×2 (08:23→21:00)
[2021-01-26] MEDS: ARTIFICIAL TEARS 3.5 GM OINTMENT OU SCH ×2 (08:24→20:13)
[2021-01-26] MEDS: BALSAM PERU/CASTOR OIL 60 GM TUBE TP SCH ×2 (08:25→20:13)
[2021-01-26] MEDS: NYSTATIN 15 GM POWDER TP SCH ×2 (08:25→20:13)
[2021-01-26] MEDS: CLONIDINE HCL 0.1 MG TABLET PO SCH ×2 (08:29→20:09)
[2021-01-26] MEDS: ACETAMINOPHEN 325 MG TAB PO PRN (20:12)
[2021-01-27] VITALS (80 sets, daily range): BP systolic 83–163; BP diastolic 40–81
[2021-01-27] MEDS: MEROPENEM 1 GM VIAL IVP SCH ×3 (00:02→16:20)
[2021-01-27] MEDS: FUROSEMIDE 100MG VIAL 100 MG in 0.9%NACL 100ML 100 ML IV SCH ×4 (02:22→17:58)
[2021-01-27] MEDS: METOCLOPRAMIDE 10 MG/2 ML VIAL IVP SCH ×3 (05:24→19:55)
[2021-01-27] MEDS: ALBUTEROL INHALER 90MCG/INH IH SCH ×3 (05:26→17:21)
[2021-01-27] MEDS: CHLORHEXIDINE GLUCONATE 473 ML MOUTHWASH MM SCH ×4 (05:27→19:55)
[2021-01-27] MEDS: INSULIN HUMULIN R 100 UNIT/ML 3ML SQ SCH ×5 (06:29→20:05)
[2021-01-27] MEDS: LEVOTHYROXINE 125 MCG TABLET PO SCH (06:30)
[2021-01-27] MEDS: ACETAMINOPHEN 325 MG TAB PO PRN (06:31)
[2021-01-27 07:21] LABS: HEMATOCRIT 24.6 % (36-48); MEAN CORPUSCULAR HEMOGLOBIN 26.9 pg (27.0-33.0); MEAN CORPUSCULAR HGB CONC 31.3 g/dL (32.0-36.0); RED BLOOD CELL COUNT(AUTO) 2.86 MIL/uL (4.00-5.50); RED CELL DISTRIBUTION WIDTH 21.9 % (11.0-15.5); WHITE BLOOD COUNT (AUTO) 4.7 K/uL (4.8-10.8)
[2021-01-27] MEDS: INSULIN GLARGINE 100 UNITS/ML 10 ML VIAL SQ SCH (07:47)
[2021-01-27] MEDS: CLONIDINE HCL 0.1 MG TABLET PO SCH (07:50)
[2021-01-27 07:53] LABS: ALBUMIN 1.3 g/dL (3.5-5.0); BILIRUBIN,TOTAL 1.7 mg/dL (0.2-1.0); CREATININE 2.7 mg/dL (0.5-1.5); POTASSIUM 3.4 mmol/L (3.5-5.1); TOTAL PROTEIN, SERUM 4.5 g/dL (6.0-8.3)
[2021-01-27] MEDS: ASPIRIN 81MG CHEW TAB PO SCH (08:15)
[2021-01-27] MEDS: PREDNISONE 20 MG TABLET PO SCH (08:15)
[2021-01-27] MEDS: SERTRALINE HCL 50 MG TABLET PO SCH (08:15)
[2021-01-27] MEDS: PANTOPRAZOLE 40 MG/VIAL IVP SCH ×2 (08:15→20:05)
[2021-01-27] MEDS: BALSAM PERU/CASTOR OIL 60 GM TUBE TP SCH ×2 (08:16→19:55)
[2021-01-27] MEDS: MONTELUKAST SODIUM 10 MG TAB PO SCH (08:16)
[2021-01-27] MEDS: NYSTATIN 15 GM POWDER TP SCH ×2 (08:16→19:54)
[2021-01-27] MEDS: ARTIFICIAL TEARS 3.5 GM OINTMENT OU SCH ×2 (08:17→19:54)
[2021-01-27] MEDS: POLYETHYLENE GLYCOL 3350 17 GM POWD.PACK PO SCH (08:17)
[2021-01-27] MEDS: POTASSIUM CHLORIDE 20MEQ/100ML 100 ML IV PRN (08:18)
[2021-01-27] MEDS: NOREPINEPHRINE BITARTRATE 32 MG in 0.9% NACL 250ML 250 ML IV SCH (08:32)
[2021-01-27] MEDS: AMIODARONE 200 MG TABLET PO SCH ×2 (10:02→20:05)
[2021-01-27] MEDS ORDERED: HYDRALAZINE 20MG/ML VIAL IV PRN (16:00)
[2021-01-27] MEDS ORDERED: LABETALOL 20MG SYG IV PRN (16:00)
[2021-01-28] VITALS (44 sets, daily range): BP systolic 91–124; BP diastolic 45–70
[2021-01-28] MEDS: ALBUTEROL INHALER 90MCG/INH IH SCH ×4 (00:08→18:00)
[2021-01-28] MEDS: MEROPENEM 1 GM VIAL IVP SCH ×3 (00:19→15:27)
[2021-01-28] MEDS: FUROSEMIDE 100MG VIAL 100 MG in 0.9%NACL 100ML 100 ML IV SCH ×3 (00:49→16:58)
[2021-01-28] MEDS: ACETAMINOPHEN 325 MG TAB PO PRN (01:32)
[2021-01-28] MEDS: CHLORHEXIDINE GLUCONATE 473 ML MOUTHWASH MM SCH ×4 (03:01→19:56)
[2021-01-28] MEDS: METOCLOPRAMIDE 10 MG/2 ML VIAL IVP SCH ×3 (03:01→19:41)
[2021-01-28] MEDS: INSULIN HUMULIN R 100 UNIT/ML 3ML SQ SCH ×6 (04:00→19:41)
[2021-01-28 04:09] LABS: HEMATOCRIT 23.4 % (36-48); MEAN CORPUSCULAR HEMOGLOBIN 27.2 pg (27.0-33.0); MEAN CORPUSCULAR HGB CONC 32.1 g/dL (32.0-36.0); MEAN CORPUSCULAR VOLUME 84.8 fL (79-99); NUCLEATED RED BLOOD CELLS 0.3 % (0.0-0.19); RED BLOOD CELL COUNT(AUTO) 2.76 MIL/uL (4.00-5.50); RED CELL DISTRIBUTION WIDTH 22.1 % (11.0-15.5); WHITE BLOOD COUNT (AUTO) 6.2 K/uL (4.8-10.8)
[2021-01-28 04:26] LABS: PROTHROMBIN TIME 10.9 SEC (9.6-11.6)
[2021-01-28 04:27] LABS: ALBUMIN 1.3 g/dL (3.5-5.0); BILIRUBIN,TOTAL 1.5 mg/dL (0.2-1.0); CREATININE 2.9 mg/dL (0.5-1.5); PARTIAL THROMBOPLASTIN TIME 28.2 SEC (26.3-35.5); POTASSIUM 3.5 mmol/L (3.5-5.1); TOTAL PROTEIN, SERUM 4.3 g/dL (6.0-8.3)
[2021-01-28] MEDS: POTASSIUM CHLORIDE 20MEQ/100ML 100 ML IV PRN (05:13)
[2021-01-28] MEDS: LEVOTHYROXINE 125 MCG TABLET PO SCH (05:14)
[2021-01-28] MEDS: DEXTROSE 50%-WATER 50 ML DISP.SYRIN IV PRN (05:20)
[2021-01-28] MEDS: POLYETHYLENE GLYCOL 3350 17 GM POWD.PACK PO SCH (08:10)
[2021-01-28] MEDS: MONTELUKAST SODIUM 10 MG TAB PO SCH (08:10)
[2021-01-28] MEDS: NYSTATIN 15 GM POWDER TP SCH ×2 (08:10→19:47)
[2021-01-28] MEDS: PANTOPRAZOLE 40 MG/VIAL IVP SCH ×2 (08:10→19:47)
[2021-01-28] MEDS: PREDNISONE 20 MG TABLET PO SCH (08:10)
[2021-01-28] MEDS: ASPIRIN 81MG CHEW TAB PO SCH (08:10)
[2021-01-28] MEDS: AMIODARONE 200 MG TABLET PO SCH ×2 (08:11→19:47)
[2021-01-28] MEDS: ARTIFICIAL TEARS 3.5 GM OINTMENT OU SCH ×2 (08:11→19:41)
[2021-01-28] MEDS: SERTRALINE HCL 50 MG TABLET PO SCH (08:11)
[2021-01-28] MEDS: BALSAM PERU/CASTOR OIL 60 GM TUBE TP SCH ×2 (08:11→19:41)
[2021-01-29] VITALS (30 sets, daily range): BP systolic 109–135; BP diastolic 50–68
[2021-01-29] MEDS: ALBUTEROL INHALER 90MCG/INH IH SCH ×2 (00:32→04:33)
[2021-01-29] MEDS: FUROSEMIDE 100MG VIAL 100 MG in 0.9%NACL 100ML 100 ML IV SCH ×2 (00:36→09:12)
[2021-01-29] MEDS: MEROPENEM 1 GM VIAL IVP SCH ×2 (01:46→08:10)
[2021-01-29] MEDS: ACETAMINOPHEN 650 MG/20.3 ML UDCUP PO PRN (03:45)
[2021-01-29] MEDS: INSULIN HUMULIN R 100 UNIT/ML 3ML SQ SCH ×7 (04:00→23:38)
[2021-01-29 04:21] LABS: BASOPHILS % (AUTO) 0.4 % (0.0-5.0); EOSINOPHILS % (AUTO) 4.8 % (0.0-8.0); HEMATOCRIT 24.6 % (36-48); LYMPHOCYTES % (AUTO) 18.8 % (21.0-51.0); MEAN CORPUSCULAR HEMOGLOBIN 27.5 pg (27.0-33.0); MEAN CORPUSCULAR HGB CONC 32.5 g/dL (32.0-36.0); MEAN CORPUSCULAR VOLUME 84.5 fL (79-99); MONOCYTES % (AUTO) 9.2 % (3.0-13.0); NEUTROPHILS % (AUTO) 56.6 % (40.0-77.0); NUCLEATED RED BLOOD CELLS 0.4 % (0.0-0.19); PLATELET COUNT (AUTO) 171 K/uL (130-400); RED BLOOD CELL COUNT(AUTO) 2.91 MIL/uL (4.00-5.50); RED CELL DISTRIBUTION WIDTH 22.1 % (11.0-15.5); WHITE BLOOD COUNT (AUTO) 7.3 K/uL (4.8-10.8)
[2021-01-29] MEDS: CHLORHEXIDINE GLUCONATE 473 ML MOUTHWASH MM SCH ×4 (04:31→19:58)
[2021-01-29] MEDS: METOCLOPRAMIDE 10 MG/2 ML VIAL IVP SCH ×3 (04:33→19:58)
[2021-01-29 04:36] LABS: INR 0.98 (0.85-1.15); PROTHROMBIN TIME 10.7 SEC (9.6-11.6)
[2021-01-29] MEDS: LEVOTHYROXINE 125 MCG TABLET PO SCH (04:41)
[2021-01-29 04:49] LABS: CREATININE 2.9 mg/dL (0.5-1.5); POTASSIUM 3.9 mmol/L (3.5-5.1)
[2021-01-29] MEDS: POLYETHYLENE GLYCOL 3350 17 GM POWD.PACK PO SCH (07:06)
[2021-01-29] MEDS: ASPIRIN 81MG CHEW TAB PO SCH (07:06)
[2021-01-29] MEDS: PANTOPRAZOLE 40 MG/VIAL IVP SCH ×2 (08:10→19:57)
[2021-01-29] MEDS: AMIODARONE 200 MG TABLET PO SCH ×2 (08:11→19:57)
[2021-01-29] MEDS: ARTIFICIAL TEARS 3.5 GM OINTMENT OU SCH ×2 (08:11→19:57)
[2021-01-29] MEDS: SERTRALINE HCL 50 MG TABLET PO SCH (08:11)
[2021-01-29] MEDS: BALSAM PERU/CASTOR OIL 60 GM TUBE TP SCH ×2 (08:11→19:57)
[2021-01-29] MEDS: MONTELUKAST SODIUM 10 MG TAB PO SCH (08:11)
[2021-01-29] MEDS: NYSTATIN 15 GM POWDER TP SCH ×2 (08:11→19:57)
[2021-01-29] MEDS ORDERED: LIDOCAINE 1%-EPI 1:100,000 20 ML VIAL IJ ONE (10:44)
[2021-01-29] MEDS ORDERED: ROCURONIUM 10MG/1ML SYR 10 MG/ML ML ONE (10:47)
[2021-01-29] MEDS ORDERED: PROPOFOL 10 MG/ML 20ML VIAL IV ONE (10:47)
[2021-01-30] VITALS (24 sets, daily range): BP systolic 104–128; BP diastolic 43–66
[2021-01-30] MEDS: INSULIN HUMULIN R 100 UNIT/ML 3ML SQ SCH ×5 (04:00→19:54)
[2021-01-30 04:48] LABS: ABG BASE EXCESS 3.5 mmol/L (-2.0-3.0); ABG HCO3 27.2 mmol/L (21.0-28.0); ABG OXYGEN SATURATION 97.2 % (95.0-99.0); ABG PCO2 38 mmHg (32-45)
[2021-01-30] MEDS: LEVOTHYROXINE 125 MCG TABLET PO SCH (05:43)
[2021-01-30] MEDS: CHLORHEXIDINE GLUCONATE 473 ML MOUTHWASH MM SCH ×4 (05:43→19:49)
[2021-01-30] MEDS: METOCLOPRAMIDE 10 MG/2 ML VIAL IVP SCH ×3 (05:43→19:48)
[2021-01-30] MEDS: ACETAMINOPHEN 650 MG/20.3 ML UDCUP PO PRN (05:44)
[2021-01-30 06:42] LABS: ALBUMIN 1.4 g/dL (3.5-5.0); BILIRUBIN,TOTAL 1.6 mg/dL (0.2-1.0); MEAN CORPUSCULAR HEMOGLOBIN 27.7 pg (27.0-33.0); MEAN CORPUSCULAR HGB CONC 31.9 g/dL (32.0-36.0); MEAN CORPUSCULAR VOLUME 86.8 fL (79-99); NUCLEATED RED BLOOD CELLS 0.8 % (0.0-0.19); POTASSIUM 3.6 mmol/L (3.5-5.1); RED BLOOD CELL COUNT(AUTO) 3.11 MIL/uL (4.00-5.50); RED CELL DISTRIBUTION WIDTH 22.7 % (11.0-15.5); TOTAL PROTEIN, SERUM 4.6 g/dL (6.0-8.3); WHITE BLOOD COUNT (AUTO) 7.5 K/uL (4.8-10.8)
[2021-01-30 06:48] LABS: INR 0.97 (0.85-1.15); PROTHROMBIN TIME 10.6 SEC (9.6-11.6)
[2021-01-30 06:49] LABS: PARTIAL THROMBOPLASTIN TIME 27.9 SEC (26.3-35.5)
[2021-01-30] MEDS: PANTOPRAZOLE 40 MG/VIAL IVP SCH ×2 (08:18→20:06)
[2021-01-30] MEDS: ASPIRIN 81MG CHEW TAB PO SCH (08:18)
[2021-01-30] MEDS: AMIODARONE 200 MG TABLET PO SCH ×2 (08:19→20:06)
[2021-01-30] MEDS: ARTIFICIAL TEARS 3.5 GM OINTMENT OU SCH ×2 (08:19→19:48)
[2021-01-30] MEDS: POLYETHYLENE GLYCOL 3350 17 GM POWD.PACK PO SCH (08:19)
[2021-01-30] MEDS: BALSAM PERU/CASTOR OIL 60 GM TUBE TP SCH ×2 (08:19→19:48)
[2021-01-30] MEDS: NYSTATIN 15 GM POWDER TP SCH ×2 (08:19→19:48)
[2021-01-30] MEDS ORDERED: FUROSEMIDE IV SCH ×2 (17:00)
[2021-01-30] MEDS ORDERED: SODIUM CHLORIDE IV SCH ×2 (17:00)
[2021-01-30] MEDS ORDERED: FUROSEMIDE 100MG VIAL IVP ONE (17:55)
[2021-01-30] MEDS: SODIUM CHLORIDE IV SCH ×2 (22:09)
[2021-01-30] MEDS: FUROSEMIDE IV SCH ×2 (22:09)
[2021-01-31] VITALS (24 sets, daily range): BP systolic 110–137; BP diastolic 50–66
[2021-01-31] MEDS: FUROSEMIDE IV SCH ×8 (03:37→21:57)
[2021-01-31] MEDS: SODIUM CHLORIDE IV SCH ×8 (03:37→21:57)
[2021-01-31] MEDS: INSULIN HUMULIN R 100 UNIT/ML 3ML SQ SCH ×7 (04:00→23:23)
[2021-01-31] MEDS: CHLORHEXIDINE GLUCONATE 473 ML MOUTHWASH MM SCH ×4 (05:15→19:21)
[2021-01-31] MEDS: METOCLOPRAMIDE 10 MG/2 ML VIAL IVP SCH ×3 (05:16→19:21)
[2021-01-31] MEDS: LEVOTHYROXINE 125 MCG TABLET PO SCH (05:54)
[2021-01-31 06:22] LABS: HEMATOCRIT 24.5 % (36-48); MEAN CORPUSCULAR HEMOGLOBIN 27.5 pg (27.0-33.0); MEAN CORPUSCULAR HGB CONC 31.8 g/dL (32.0-36.0); MEAN CORPUSCULAR VOLUME 86.3 fL (79-99); NUCLEATED RED BLOOD CELLS 0.6 % (0.0-0.19); PLATELET COUNT (AUTO) 204 K/uL (130-400); RED BLOOD CELL COUNT(AUTO) 2.84 MIL/uL (4.00-5.50); RED CELL DISTRIBUTION WIDTH 22.5 % (11.0-15.5); WHITE BLOOD COUNT (AUTO) 7.3 K/uL (4.8-10.8)
[2021-01-31 06:44] LABS: ALBUMIN 1.2 g/dL (3.5-5.0); BILIRUBIN,TOTAL 1.6 mg/dL (0.2-1.0); POTASSIUM 3.2 mmol/L (3.5-5.1); TOTAL PROTEIN, SERUM 4.4 g/dL (6.0-8.3)
[2021-01-31 07:38] LABS: INR 0.96 (0.85-1.15); PROTHROMBIN TIME 10.5 SEC (9.6-11.6)
[2021-01-31 07:40] LABS: PARTIAL THROMBOPLASTIN TIME 28.7 SEC (26.3-35.5)
[2021-01-31] MEDS: PANTOPRAZOLE 40 MG/VIAL IVP SCH ×2 (08:37→19:21)
[2021-01-31] MEDS: AMIODARONE 200 MG TABLET PO SCH ×2 (08:37→19:21)
[2021-01-31] MEDS: ASPIRIN 81MG CHEW TAB PO SCH (08:37)
[2021-01-31] MEDS: BALSAM PERU/CASTOR OIL 60 GM TUBE TP SCH ×2 (08:38→19:21)
[2021-01-31] MEDS: NYSTATIN 15 GM POWDER TP SCH ×2 (08:38→19:21)
[2021-01-31] MEDS: ARTIFICIAL TEARS 3.5 GM OINTMENT OU SCH ×2 (08:38→19:21)
[2021-01-31] MEDS: POLYETHYLENE GLYCOL 3350 17 GM POWD.PACK PO SCH (08:38)
[2021-02-01] VITALS (25 sets, daily range): BP systolic 101–149; BP diastolic 49–73
[2021-02-01] MEDS: CHLORHEXIDINE GLUCONATE 473 ML MOUTHWASH MM SCH ×4 (03:37→19:40)
[2021-02-01] MEDS: FUROSEMIDE IV SCH ×6 (03:37→21:27)
[2021-02-01] MEDS: SODIUM CHLORIDE IV SCH ×6 (03:37→21:27)
[2021-02-01] MEDS: METOCLOPRAMIDE 10 MG/2 ML VIAL IVP SCH ×3 (03:38→19:40)
[2021-02-01] MEDS: INSULIN HUMULIN R 100 UNIT/ML 3ML SQ SCH ×6 (04:00→23:39)
[2021-02-01] MEDS: LEVOTHYROXINE 125 MCG TABLET PO SCH (05:41)
[2021-02-01 06:46] LABS: BASOPHILS % (AUTO) 0.7 % (0.0-5.0); HEMATOCRIT 25.3 % (36-48); LYMPHOCYTES % (AUTO) 17.1 % (21.0-51.0); MEAN CORPUSCULAR HEMOGLOBIN 27.7 pg (27.0-33.0); MEAN CORPUSCULAR VOLUME 86.6 fL (79-99); MONOCYTES % (AUTO) 7.1 % (3.0-13.0); NEUTROPHILS % (AUTO) 57.7 % (40.0-77.0); NUCLEATED RED BLOOD CELLS 1.2 % (0.0-0.19); PLATELET COUNT (AUTO) 228 K/uL (130-400); RED BLOOD CELL COUNT(AUTO) 2.92 MIL/uL (4.00-5.50); RED CELL DISTRIBUTION WIDTH 22.6 % (11.0-15.5)
[2021-02-01 07:01] LABS: CREATININE 3.2 mg/dL (0.5-1.5)
[2021-02-01 07:02] LABS: POTASSIUM 2.6 mmol/L (3.5-5.1)
[2021-02-01] MEDS ORDERED: POTASSIUM CHLORIDE 10% ELIXIR 20 MEQ/15 ML UDCUP ONE (08:41)
[2021-02-01] MEDS: AMIODARONE 200 MG TABLET PO SCH (08:46)
[2021-02-01] MEDS: PANTOPRAZOLE 40 MG/VIAL IVP SCH ×2 (08:46→19:47)
[2021-02-01] MEDS: ARTIFICIAL TEARS 3.5 GM OINTMENT OU SCH ×2 (08:59→19:40)
[2021-02-01] MEDS: POLYETHYLENE GLYCOL 3350 17 GM POWD.PACK PO SCH (08:59)
[2021-02-01] MEDS: NYSTATIN 15 GM POWDER TP SCH ×2 (08:59→19:40)
[2021-02-01] MEDS: BALSAM PERU/CASTOR OIL 60 GM TUBE TP SCH ×2 (09:00→19:40)
[2021-02-01] MEDS ORDERED: LIDOCAINE HCL-MPF 1% 2ML VIAL IV PRN (09:00)
[2021-02-01] MEDS: POTASSIUM CHLORIDE 10MEQ/100ML 100 ML IV PRN (18:59)
[2021-02-01] MEDS ORDERED: SPIRONOLACTONE 25 MG TAB PO SCH (23:00)
[2021-02-02] VITALS (24 sets, daily range): BP systolic 107–135; BP diastolic 57–76
[2021-02-02] MEDS: SODIUM CHLORIDE IV SCH ×6 (03:04→18:02)
[2021-02-02] MEDS: FUROSEMIDE IV SCH ×6 (03:04→18:02)
[2021-02-02] MEDS: CHLORHEXIDINE GLUCONATE 473 ML MOUTHWASH MM SCH ×4 (04:49→20:08)
[2021-02-02] MEDS: INSULIN HUMULIN R 100 UNIT/ML 3ML SQ SCH ×4 (04:50→20:09)
[2021-02-02] MEDS: LEVOTHYROXINE 125 MCG TABLET PO SCH (05:36)
[2021-02-02] MEDS: METOCLOPRAMIDE 10 MG/2 ML VIAL IVP SCH ×3 (05:36→20:08)
[2021-02-02 06:54] LABS: HEMATOCRIT 24.3 % (36-48); MEAN CORPUSCULAR HEMOGLOBIN 27.9 pg (27.0-33.0); MEAN CORPUSCULAR HGB CONC 32.1 g/dL (32.0-36.0); MEAN CORPUSCULAR VOLUME 86.8 fL (79-99); NUCLEATED RED BLOOD CELLS 1.7 % (0.0-0.19); RED BLOOD CELL COUNT(AUTO) 2.8 MIL/uL (4.00-5.50); RED CELL DISTRIBUTION WIDTH 22.6 % (11.0-15.5); WHITE BLOOD COUNT (AUTO) 12.1 K/uL (4.8-10.8)
[2021-02-02 07:08] LABS: ALBUMIN 1.3 g/dL (3.5-5.0); BILIRUBIN,TOTAL 1.3 mg/dL (0.2-1.0); CREATININE 3.3 mg/dL (0.5-1.5); TOTAL PROTEIN, SERUM 4.7 g/dL (6.0-8.3)
[2021-02-02 07:13] LABS: POTASSIUM 2.9 mmol/L (3.5-5.1)
[2021-02-02] MEDS: POLYETHYLENE GLYCOL 3350 17 GM POWD.PACK PO SCH (09:00)
[2021-02-02] MEDS: ENOXAPARIN SODIUM 30 MG/0.3 ML SQ SCH (09:36)
[2021-02-02] MEDS: ARTIFICIAL TEARS 3.5 GM OINTMENT OU SCH ×2 (09:36→20:08)
[2021-02-02] MEDS: PANTOPRAZOLE 40 MG/VIAL IVP SCH ×2 (09:37→20:14)
[2021-02-02] MEDS: AMIODARONE 200 MG TABLET PO SCH (09:37)
[2021-02-02] MEDS: NYSTATIN 15 GM POWDER TP SCH ×2 (09:38→20:08)
[2021-02-02] MEDS: BALSAM PERU/CASTOR OIL 60 GM TUBE TP SCH ×2 (09:38→20:08)
[2021-02-02] MEDS: POTASSIUM CHLORIDE 10% ELIXIR 20 MEQ/15 ML UDCUP PO PRN ×2 (11:15→14:38)
[2021-02-02] MEDS: SPIRONOLACTONE 25 MG TAB PO SCH (14:36)
[2021-02-03] VITALS (24 sets, daily range): BP systolic 105–142; BP diastolic 45–68
[2021-02-03] MEDS: FUROSEMIDE IV SCH ×4 (00:42→13:54)
[2021-02-03] MEDS: SODIUM CHLORIDE IV SCH ×4 (00:42→13:54)
[2021-02-03] MEDS: CHLORHEXIDINE GLUCONATE 473 ML MOUTHWASH MM SCH ×4 (04:58→20:08)
[2021-02-03] MEDS: METOCLOPRAMIDE 10 MG/2 ML VIAL IVP SCH ×3 (04:59→19:32)
[2021-02-03] MEDS: LEVOTHYROXINE 125 MCG TABLET PO SCH (05:40)
[2021-02-03] MEDS: INSULIN HUMULIN R 100 UNIT/ML 3ML SQ SCH ×4 (05:41→19:56)
[2021-02-03 07:43] LABS: BASOPHILS % (AUTO) 0.6 % (0.0-5.0); EOSINOPHILS % (AUTO) 1.6 % (0.0-8.0); HEMATOCRIT 23.5 % (36-48); LYMPHOCYTES % (AUTO) 21.7 % (21.0-51.0); MEAN CORPUSCULAR HEMOGLOBIN 27.8 pg (27.0-33.0); MEAN CORPUSCULAR HGB CONC 31.5 g/dL (32.0-36.0); MEAN CORPUSCULAR VOLUME 88.3 fL (79-99); MONOCYTES % (AUTO) 7.2 % (3.0-13.0); NEUTROPHILS % (AUTO) 54.9 % (40.0-77.0); PLATELET COUNT (AUTO) 238 K/uL (130-400); RED BLOOD CELL COUNT(AUTO) 2.66 MIL/uL (4.00-5.50); RED CELL DISTRIBUTION WIDTH 23.2 % (11.0-15.5); WHITE BLOOD COUNT (AUTO) 10.9 K/uL (4.8-10.8)
[2021-02-03 08:02] LABS: CREATININE 3.2 mg/dL (0.5-1.5); MAGNESIUM 2.4 mg/dL (1.80-2.40)
[2021-02-03 08:20] LABS: POTASSIUM 2.7 mmol/L (3.5-5.1)
[2021-02-03] MEDS: POTASSIUM CHLORIDE 10MEQ/100ML 100 ML IV PRN ×2 (08:25→10:00)
[2021-02-03] MEDS: ARTIFICIAL TEARS 3.5 GM OINTMENT OU SCH ×2 (08:57→19:33)
[2021-02-03] MEDS: SPIRONOLACTONE 25 MG TAB PO SCH (08:57)
[2021-02-03] MEDS: PANTOPRAZOLE 40 MG/VIAL IVP SCH ×2 (08:57→19:57)
[2021-02-03] MEDS: NYSTATIN 15 GM POWDER TP SCH ×2 (08:58→19:33)
[2021-02-03] MEDS: AMIODARONE 200 MG TABLET PO SCH (08:58)
[2021-02-03] MEDS: ENOXAPARIN SODIUM 30 MG/0.3 ML SQ SCH (08:58)
[2021-02-03] MEDS: BALSAM PERU/CASTOR OIL 60 GM TUBE TP SCH ×2 (08:59→19:33)
[2021-02-03] MEDS ORDERED: POTASSIUM CHLORIDE 20 MEQ/100 ML BAG IV SCH (10:30)
[2021-02-03] MEDS ORDERED: POTASSIUM CHLORIDE 20MEQ/100ML 100 ML IV SCH (11:00)
[2021-02-03] MEDS ORDERED: POTASSIUM CHLORIDE 10% ELIXIR 20 MEQ/15 ML UDCUP PEG SCH (11:00)
[2021-02-03] MEDS: ACETAMINOPHEN 650 MG/20.3 ML UDCUP PEG PRN (15:05)
[2021-02-03] MEDS: SPIRONOLACTONE 25 MG TAB PEG SCH (19:57)
[2021-02-04] VITALS (24 sets, daily range): BP systolic 102–152; BP diastolic 51–82
[2021-02-04] MEDS: SODIUM CHLORIDE IV SCH ×6 (01:58→10:34)
[2021-02-04] MEDS: FUROSEMIDE IV SCH ×6 (01:58→10:34)
[2021-02-04] MEDS: METOCLOPRAMIDE 10 MG/2 ML VIAL IVP SCH ×2 (03:11→15:09)
[2021-02-04] MEDS: CHLORHEXIDINE GLUCONATE 473 ML MOUTHWASH MM SCH (03:56)
[2021-02-04 04:44] LABS: BASOPHILS % (AUTO) 0.5 % (0.0-5.0); LYMPHOCYTES % (AUTO) 22.1 % (21.0-51.0); MEAN CORPUSCULAR HEMOGLOBIN 27.7 pg (27.0-33.0); MEAN CORPUSCULAR HGB CONC 31.7 g/dL (32.0-36.0); MEAN CORPUSCULAR VOLUME 87.1 fL (79-99); MONOCYTES % (AUTO) 9.2 % (3.0-13.0); NUCLEATED RED BLOOD CELLS 1.9 % (0.0-0.19); PLATELET COUNT (AUTO) 243 K/uL (130-400); RED BLOOD CELL COUNT(AUTO) 2.64 MIL/uL (4.00-5.50); RED CELL DISTRIBUTION WIDTH 23.1 % (11.0-15.5); WHITE BLOOD COUNT (AUTO) 13.1 K/uL (4.8-10.8)
[2021-02-04 05:01] LABS: CREATININE 3.1 mg/dL (0.5-1.5); MAGNESIUM 2.5 mg/dL (1.80-2.40); PHOSPHORUS 4.9 mg/dL (2.5-4.9); POTASSIUM 3.3 mmol/L (3.5-5.1)
[2021-02-04] MEDS: LEVOTHYROXINE 125 MCG TABLET PO SCH (06:02)
[2021-02-04] MEDS: POTASSIUM CHLORIDE 10% ELIXIR 20 MEQ/15 ML UDCUP PO PRN ×2 (06:02→08:40)
[2021-02-04] MEDS: INSULIN HUMULIN R 100 UNIT/ML 3ML SQ SCH ×4 (08:32→19:40)
[2021-02-04] MEDS: SPIRONOLACTONE 25 MG TAB PEG SCH ×2 (08:40→19:42)
[2021-02-04] MEDS: AMIODARONE 200 MG TABLET PO SCH (08:40)
[2021-02-04] MEDS: ENOXAPARIN SODIUM 30 MG/0.3 ML SQ SCH (08:42)
[2021-02-04] MEDS: NYSTATIN 15 GM POWDER TP SCH ×2 (08:43→19:38)
[2021-02-04] MEDS: ARTIFICIAL TEARS 3.5 GM OINTMENT OU SCH (08:43)
[2021-02-04] MEDS: BALSAM PERU/CASTOR OIL 60 GM TUBE TP SCH ×2 (08:44→19:39)
[2021-02-04] MEDS: PANTOPRAZOLE 40 MG/VIAL IVP SCH ×2 (08:45→19:42)
[2021-02-04] MEDS ORDERED: POTASSIUM CHLORIDE 10% ELIXIR 20 MEQ/15 ML UDCUP PO ONE (10:20)
[2021-02-04] MEDS ORDERED: METOCLOPRAMIDE 10 MG/2 ML VIAL IVP PRN (19:30)
[2021-02-05] VITALS (24 sets, daily range): BP systolic 115–152; BP diastolic 56–83
[2021-02-05 04:51] LABS: BASOPHILS % (AUTO) 0.7 % (0.0-5.0); EOSINOPHILS % (AUTO) 0.6 % (0.0-8.0); HEMATOCRIT 22.4 % (36-48); LYMPHOCYTES % (AUTO) 22.3 % (21.0-51.0); MEAN CORPUSCULAR HGB CONC 32.1 g/dL (32.0-36.0); MEAN CORPUSCULAR VOLUME 87.2 fL (79-99); MONOCYTES % (AUTO) 9.8 % (3.0-13.0); NEUTROPHILS % (AUTO) 55.4 % (40.0-77.0); NUCLEATED RED BLOOD CELLS 1.8 % (0.0-0.19); PLATELET COUNT (AUTO) 212 K/uL (130-400); RED BLOOD CELL COUNT(AUTO) 2.57 MIL/uL (4.00-5.50); RED CELL DISTRIBUTION WIDTH 23.7 % (11.0-15.5); WHITE BLOOD COUNT (AUTO) 12.9 K/uL (4.8-10.8)
[2021-02-05 05:01] LABS: CREATININE 3.4 mg/dL (0.5-1.5); MAGNESIUM 2.4 mg/dL (1.80-2.40); POTASSIUM 3.7 mmol/L (3.5-5.1)
[2021-02-05] MEDS: LEVOTHYROXINE 125 MCG TABLET PO SCH (05:47)
[2021-02-05] MEDS: POTASSIUM CHLORIDE 10% ELIXIR 20 MEQ/15 ML UDCUP PO PRN ×2 (05:48→08:10)
[2021-02-05] MEDS: INSULIN HUMULIN R 100 UNIT/ML 3ML SQ SCH ×4 (06:44→20:53)
[2021-02-05] MEDS: PANTOPRAZOLE 40 MG/VIAL IVP SCH ×2 (08:03→20:52)
[2021-02-05] MEDS: SPIRONOLACTONE 25 MG TAB PEG SCH ×2 (08:04→20:52)
[2021-02-05] MEDS: AMIODARONE 200 MG TABLET PO SCH (08:04)
[2021-02-05] MEDS: ENOXAPARIN SODIUM 30 MG/0.3 ML SQ SCH (08:05)
[2021-02-05] MEDS: NYSTATIN 15 GM POWDER TP SCH ×2 (08:05→20:49)
[2021-02-05] MEDS: BALSAM PERU/CASTOR OIL 60 GM TUBE TP SCH ×2 (08:05→20:50)
[2021-02-05] MEDS: ACETAZOLAMIDE SODIUM 500 MG VIAL IV SCH (08:07)
[2021-02-05] MEDS: SODIUM CHLORIDE IV SCH ×4 (11:18→18:48)
[2021-02-05] MEDS: FUROSEMIDE IV SCH ×4 (11:18→18:48)
[2021-02-05] MEDS: ACETAMINOPHEN 650 MG/20.3 ML UDCUP PEG PRN (16:04)
[2021-02-05] MEDS: MELATONIN PEG PRN (21:05)
[2021-02-06] VITALS (24 sets, daily range): BP systolic 106–146; BP diastolic 53–81
[2021-02-06] MEDS: FUROSEMIDE IV SCH ×6 (00:51→22:50)
[2021-02-06] MEDS: SODIUM CHLORIDE IV SCH ×6 (00:51→22:50)
[2021-02-06 04:32] LABS: BASOPHILS % (AUTO) 0.6 % (0.0-5.0); EOSINOPHILS % (AUTO) 0.7 % (0.0-8.0); HEMATOCRIT 22.8 % (36-48); LYMPHOCYTES % (AUTO) 22.4 % (21.0-51.0); MEAN CORPUSCULAR HGB CONC 31.6 g/dL (32.0-36.0); MEAN CORPUSCULAR VOLUME 88.7 fL (79-99); NEUTROPHILS % (AUTO) 55.5 % (40.0-77.0); NUCLEATED RED BLOOD CELLS 2.7 % (0.0-0.19); PLATELET COUNT (AUTO) 199 K/uL (130-400); RED BLOOD CELL COUNT(AUTO) 2.57 MIL/uL (4.00-5.50); RED CELL DISTRIBUTION WIDTH 23.4 % (11.0-15.5); WHITE BLOOD COUNT (AUTO) 14.5 K/uL (4.8-10.8)
[2021-02-06 04:57] LABS: ALBUMIN 1.4 g/dL (3.5-5.0); BILIRUBIN,TOTAL 1.1 mg/dL (0.2-1.0); CREATININE 3.3 mg/dL (0.5-1.5); MAGNESIUM 2.4 mg/dL (1.80-2.40); POTASSIUM 3.7 mmol/L (3.5-5.1); TOTAL PROTEIN, SERUM 5.2 g/dL (6.0-8.3)
[2021-02-06] MEDS: POTASSIUM CHLORIDE 10% ELIXIR 20 MEQ/15 ML UDCUP PO PRN ×2 (05:28→08:44)
[2021-02-06] MEDS: LEVOTHYROXINE 125 MCG TABLET PO SCH (05:28)
[2021-02-06] MEDS: INSULIN HUMULIN R 100 UNIT/ML 3ML SQ SCH ×4 (07:30→16:30)
[2021-02-06] MEDS: AMIODARONE 200 MG TABLET PO SCH (08:43)
[2021-02-06] MEDS: SPIRONOLACTONE 25 MG TAB PEG SCH ×2 (08:43→20:37)
[2021-02-06] MEDS: PANTOPRAZOLE 40 MG/VIAL IVP SCH ×2 (08:44→20:37)
[2021-02-06] MEDS: NYSTATIN 15 GM POWDER TP SCH ×2 (08:45→20:01)
[2021-02-06] MEDS: BALSAM PERU/CASTOR OIL 60 GM TUBE TP SCH ×2 (08:45→20:01)
[2021-02-06] MEDS: ENOXAPARIN SODIUM 30 MG/0.3 ML SQ SCH (08:45)
[2021-02-06] MEDS: ACETAZOLAMIDE SODIUM 500 MG VIAL IV SCH (09:01)
[2021-02-06] MEDS: FLUOXETINE HCL 20 MG CAPSULE PEG SCH (20:37)
[2021-02-07] VITALS (22 sets, daily range): BP systolic 81–119; BP diastolic 45–67
[2021-02-07] MEDS: FUROSEMIDE IV SCH ×6 (03:33→20:21)
[2021-02-07] MEDS: SODIUM CHLORIDE IV SCH ×6 (03:33→20:21)
[2021-02-07] MEDS: LEVOTHYROXINE 125 MCG TABLET PO SCH (05:04)
[2021-02-07] MEDS: INSULIN HUMULIN R 100 UNIT/ML 3ML SQ SCH ×3 (05:29→17:06)
[2021-02-07] MEDS: ENOXAPARIN SODIUM 30 MG/0.3 ML SQ SCH (09:08)
[2021-02-07] MEDS: NYSTATIN 15 GM POWDER TP SCH ×2 (09:08→20:02)
[2021-02-07] MEDS: PANTOPRAZOLE 40 MG/VIAL IVP SCH ×2 (09:09→20:09)
[2021-02-07] MEDS: AMIODARONE 200 MG TABLET PO SCH (09:09)
[2021-02-07] MEDS: ACETAZOLAMIDE SODIUM 500 MG VIAL IV SCH (09:10)
[2021-02-07] MEDS: SPIRONOLACTONE 25 MG TAB PEG SCH ×2 (09:10→20:09)
[2021-02-07] MEDS: BALSAM PERU/CASTOR OIL 60 GM TUBE TP SCH ×2 (09:11→20:02)
[2021-02-07] MEDS: FLUOXETINE HCL 20 MG CAPSULE PEG SCH (20:10)
[2021-02-08] VITALS (24 sets, daily range): BP systolic 104–129; BP diastolic 50–68
[2021-02-08] MEDS: INSULIN HUMULIN R 100 UNIT/ML 3ML SQ SCH ×5 (00:15→20:09)
[2021-02-08] MEDS: FUROSEMIDE IV SCH ×6 (01:22→15:37)
[2021-02-08] MEDS: SODIUM CHLORIDE IV SCH ×6 (01:22→15:37)
[2021-02-08] MEDS: LEVOTHYROXINE 125 MCG TABLET PO SCH (06:12)
[2021-02-08 06:21] LABS: ALBUMIN 1.4 g/dL (3.5-5.0); CREATININE 3.3 mg/dL (0.5-1.5); PHOSPHORUS 5.8 mg/dL (2.5-4.9)
[2021-02-08] MEDS: POTASSIUM CHLORIDE 10MEQ/100ML 100 ML IV PRN ×2 (06:39→09:00)
[2021-02-08] MEDS: NYSTATIN 15 GM POWDER TP SCH ×2 (08:56→20:10)
[2021-02-08] MEDS: SPIRONOLACTONE 25 MG TAB PEG SCH ×2 (08:56→20:07)
[2021-02-08] MEDS: AMIODARONE 200 MG TABLET PO SCH (08:56)
[2021-02-08] MEDS: PANTOPRAZOLE 40 MG/VIAL IVP SCH ×2 (08:56→20:07)
[2021-02-08] MEDS: BALSAM PERU/CASTOR OIL 60 GM TUBE TP SCH ×2 (08:57→20:10)
[2021-02-08] MEDS: ACETAZOLAMIDE SODIUM 500 MG VIAL IV SCH (08:57)
[2021-02-08] MEDS: ENOXAPARIN SODIUM 30 MG/0.3 ML SQ SCH (08:57)
[2021-02-08] MEDS: KCL 20 MEQ ERTAB PO PRN ×2 (11:00→13:00)
[2021-02-08] MEDS: FLUOXETINE HCL 20 MG CAPSULE PEG SCH (20:07)
[2021-02-09] VITALS (26 sets, daily range): BP systolic 111–161; BP diastolic 56–84
[2021-02-09] MEDS: SODIUM CHLORIDE IV SCH ×6 (02:08→16:47)
[2021-02-09] MEDS: FUROSEMIDE IV SCH ×6 (02:08→16:47)
[2021-02-09] MEDS: LEVOTHYROXINE 125 MCG TABLET PO SCH (06:19)
[2021-02-09] MEDS: INSULIN HUMULIN R 100 UNIT/ML 3ML SQ SCH ×4 (06:47→20:53)
[2021-02-09 07:39] LABS: ALBUMIN 1.5 g/dL (3.5-5.0); BILIRUBIN,TOTAL 0.9 mg/dL (0.2-1.0); CREATININE 3.3 mg/dL (0.5-1.5); POTASSIUM 3.6 mmol/L (3.5-5.1); TOTAL PROTEIN, SERUM 5.4 g/dL (6.0-8.3)
[2021-02-09] MEDS: PANTOPRAZOLE 40 MG/VIAL IVP SCH ×2 (08:58→20:52)
[2021-02-09] MEDS: SPIRONOLACTONE 25 MG TAB PEG SCH ×2 (08:58→20:52)
[2021-02-09] MEDS: NYSTATIN 15 GM POWDER TP SCH ×2 (08:58→20:52)
[2021-02-09] MEDS: AMIODARONE 200 MG TABLET PO SCH (08:58)
[2021-02-09] MEDS: ENOXAPARIN SODIUM 30 MG/0.3 ML SQ SCH (08:59)
[2021-02-09] MEDS: BALSAM PERU/CASTOR OIL 60 GM TUBE TP SCH ×2 (09:00→20:52)
[2021-02-09] MEDS: ACETAZOLAMIDE SODIUM 500 MG VIAL IV SCH (09:00)
[2021-02-09 20:37] LABS: BASOPHILS % (AUTO) 0.8 % (0.0-5.0); HEMATOCRIT 22.9 % (36-48); LYMPHOCYTES % (AUTO) 15.6 % (21.0-51.0); MEAN CORPUSCULAR HEMOGLOBIN 27.8 pg (27.0-33.0); MEAN CORPUSCULAR HGB CONC 30.1 g/dL (32.0-36.0); MEAN CORPUSCULAR VOLUME 92.3 fL (79-99); MONOCYTES % (AUTO) 10.3 % (3.0-13.0); NUCLEATED RED BLOOD CELLS 1.3 % (0.0-0.19); PLATELET COUNT (AUTO) 131 K/uL (130-400); RED BLOOD CELL COUNT(AUTO) 2.48 MIL/uL (4.00-5.50); RED CELL DISTRIBUTION WIDTH 23.4 % (11.0-15.5); WHITE BLOOD COUNT (AUTO) 10.6 K/uL (4.8-10.8)
[2021-02-09 20:45] LABS: CREATININE 3.1 mg/dL (0.5-1.5); POTASSIUM 3.1 mmol/L (3.5-5.1)
[2021-02-09] MEDS: FLUOXETINE HCL 20 MG CAPSULE PEG SCH (20:52)
[2021-02-10] VITALS (24 sets, daily range): BP systolic 109–154; BP diastolic 41–85
[2021-02-10 04:21] LABS: BASOPHILS % (AUTO) 0.7 % (0.0-5.0); EOSINOPHILS % (AUTO) 2.8 % (0.0-8.0); HEMATOCRIT 25.7 % (36-48); LYMPHOCYTES % (AUTO) 17.1 % (21.0-51.0); MEAN CORPUSCULAR HEMOGLOBIN 28.3 pg (27.0-33.0); MEAN CORPUSCULAR HGB CONC 31.1 g/dL (32.0-36.0); MEAN CORPUSCULAR VOLUME 90.8 fL (79-99); MONOCYTES % (AUTO) 11.2 % (3.0-13.0); NEUTROPHILS % (AUTO) 60.8 % (40.0-77.0); NUCLEATED RED BLOOD CELLS 1.5 % (0.0-0.19); PLATELET COUNT (AUTO) 124 K/uL (130-400); RED BLOOD CELL COUNT(AUTO) 2.83 MIL/uL (4.00-5.50); RED CELL DISTRIBUTION WIDTH 21.7 % (11.0-15.5); WHITE BLOOD COUNT (AUTO) 9.9 K/uL (4.8-10.8)
[2021-02-10 04:36] LABS: CREATININE 3.1 mg/dL (0.5-1.5); POTASSIUM 3.1 mmol/L (3.5-5.1)
[2021-02-10] MEDS: SODIUM CHLORIDE IV SCH ×8 (05:14→17:54)
[2021-02-10] MEDS: FUROSEMIDE IV SCH ×8 (05:14→17:54)
[2021-02-10] MEDS: INSULIN HUMULIN R 100 UNIT/ML 3ML SQ SCH ×5 (05:53→23:47)
[2021-02-10] MEDS: LEVOTHYROXINE 125 MCG TABLET PO SCH (06:04)
[2021-02-10] MEDS: PANTOPRAZOLE 40 MG/VIAL IVP SCH ×2 (07:39→20:33)
[2021-02-10] MEDS: AMIODARONE 200 MG TABLET PO SCH (07:39)
[2021-02-10] MEDS: SPIRONOLACTONE 25 MG TAB PEG SCH ×2 (07:39→20:33)
[2021-02-10] MEDS: ACETAZOLAMIDE SODIUM 500 MG VIAL IV SCH (07:39)
[2021-02-10] MEDS: ENOXAPARIN SODIUM 30 MG/0.3 ML SQ SCH (07:40)
[2021-02-10] MEDS: NYSTATIN 15 GM POWDER TP SCH ×2 (07:41→20:33)
[2021-02-10] MEDS: BALSAM PERU/CASTOR OIL 60 GM TUBE TP SCH ×2 (07:42→21:28)
[2021-02-10] MEDS: FLUOXETINE HCL 20 MG CAPSULE PEG SCH (20:33)
[2021-02-10 21:10] LABS: CREATININE 3.1 mg/dL (0.5-1.5)
[2021-02-10 21:14] LABS: POTASSIUM 2.9 mmol/L (3.5-5.1)
[2021-02-10] MEDS: POTASSIUM CHLORIDE 10% ELIXIR 20 MEQ/15 ML UDCUP PO PRN ×2 (21:37→23:31)
[2021-02-10] MEDS: POTASSIUM CHLORIDE 20 MEQ/100 ML BAG IV SCH (22:14)
[2021-02-11] VITALS (24 sets, daily range): BP systolic 101–137; BP diastolic 39–76
[2021-02-11] MEDS: LEVOTHYROXINE 125 MCG TABLET PO SCH (05:32)
[2021-02-11 05:47] LABS: HEMATOCRIT 25.7 % (36-48); MEAN CORPUSCULAR HEMOGLOBIN 28.5 pg (27.0-33.0); MEAN CORPUSCULAR HGB CONC 31.1 g/dL (32.0-36.0); MEAN CORPUSCULAR VOLUME 91.5 fL (79-99); NUCLEATED RED BLOOD CELLS 1.5 % (0.0-0.19); RED BLOOD CELL COUNT(AUTO) 2.81 MIL/uL (4.00-5.50); RED CELL DISTRIBUTION WIDTH 21.8 % (11.0-15.5); WHITE BLOOD COUNT (AUTO) 10.6 K/uL (4.8-10.8)
[2021-02-11] MEDS: INSULIN HUMULIN R 100 UNIT/ML 3ML SQ SCH ×4 (05:54→20:20)
[2021-02-11] MEDS: ACETAZOLAMIDE SODIUM 500 MG VIAL IV SCH (09:22)
[2021-02-11] MEDS: AMIODARONE 200 MG TABLET PO SCH (09:22)
[2021-02-11] MEDS: ENOXAPARIN SODIUM 30 MG/0.3 ML SQ SCH (09:22)
[2021-02-11] MEDS: PANTOPRAZOLE 40 MG/VIAL IVP SCH ×2 (09:22→19:59)
[2021-02-11] MEDS: SPIRONOLACTONE 25 MG TAB PEG SCH ×2 (09:22→19:59)
[2021-02-11] MEDS: BALSAM PERU/CASTOR OIL 60 GM TUBE TP SCH ×2 (09:23→19:51)
[2021-02-11] MEDS: NYSTATIN 15 GM POWDER TP SCH ×2 (09:23→19:51)
[2021-02-11] MEDS: SODIUM CHLORIDE IV SCH ×4 (09:24→22:18)
[2021-02-11] MEDS: FUROSEMIDE IV SCH ×4 (09:24→22:18)
[2021-02-11] MEDS: POTASSIUM CHLORIDE 10% ELIXIR 20 MEQ/15 ML UDCUP PO PRN (18:29)
[2021-02-11] MEDS: POTASSIUM CHLORIDE 20 MEQ/100 ML BAG IV SCH (19:52)
[2021-02-11] MEDS: FLUOXETINE HCL 20 MG CAPSULE PEG SCH (19:59)
[2021-02-11] MEDS: MELATONIN PEG PRN (20:00)
[2021-02-12] VITALS (22 sets, daily range): BP systolic 97–137; BP diastolic 46–72
[2021-02-12] MEDS: LEVOTHYROXINE 125 MCG TABLET PO SCH (05:09)
[2021-02-12] MEDS: INSULIN HUMULIN R 100 UNIT/ML 3ML SQ SCH ×4 (05:32→17:16)
[2021-02-12 06:02] LABS: HEMATOCRIT 23.3 % (36-48); MEAN CORPUSCULAR HEMOGLOBIN 28.2 pg (27.0-33.0); MEAN CORPUSCULAR HGB CONC 30.5 g/dL (32.0-36.0); MEAN CORPUSCULAR VOLUME 92.5 fL (79-99); NUCLEATED RED BLOOD CELLS 1.6 % (0.0-0.19); RED BLOOD CELL COUNT(AUTO) 2.52 MIL/uL (4.00-5.50); RED CELL DISTRIBUTION WIDTH 21.5 % (11.0-15.5); WHITE BLOOD COUNT (AUTO) 10.3 K/uL (4.8-10.8)
[2021-02-12] MEDS: SODIUM CHLORIDE IV SCH ×6 (06:13→20:39)
[2021-02-12] MEDS: FUROSEMIDE IV SCH ×6 (06:13→20:39)
[2021-02-12 06:24] LABS: CREATININE 2.8 mg/dL (0.5-1.5); POTASSIUM 3.8 mmol/L (3.5-5.1)
[2021-02-12] MEDS: ENOXAPARIN SODIUM 30 MG/0.3 ML SQ SCH (08:08)
[2021-02-12] MEDS: NYSTATIN 15 GM POWDER TP SCH ×2 (08:08→20:38)
[2021-02-12] MEDS: AMIODARONE 200 MG TABLET PO SCH (08:08)
[2021-02-12] MEDS: SPIRONOLACTONE 25 MG TAB PEG SCH ×2 (08:08→20:38)
[2021-02-12] MEDS: PANTOPRAZOLE 40 MG/VIAL IVP SCH ×2 (08:08→20:38)
[2021-02-12] MEDS: BALSAM PERU/CASTOR OIL 60 GM TUBE TP SCH ×2 (08:09→20:38)
[2021-02-12] MEDS: ACETAZOLAMIDE SODIUM 500 MG VIAL IV SCH (08:49)
[2021-02-12] MEDS: FLUOXETINE HCL 20 MG CAPSULE PEG SCH (20:38)
[2021-02-12] MEDS: POTASSIUM CHLORIDE 20 MEQ/100 ML BAG IV SCH (20:39)
[2021-02-13] VITALS (24 sets, daily range): BP systolic 99–137; BP diastolic 41–74
[2021-02-13] MEDS: INSULIN HUMULIN R 100 UNIT/ML 3ML SQ SCH ×4 (00:23→18:21)
[2021-02-13 06:25] LABS: HEMATOCRIT 24.2 % (36-48); MEAN CORPUSCULAR HEMOGLOBIN 28.3 pg (27.0-33.0); MEAN CORPUSCULAR VOLUME 91.3 fL (79-99); RED BLOOD CELL COUNT(AUTO) 2.65 MIL/uL (4.00-5.50); RED CELL DISTRIBUTION WIDTH 21.4 % (11.0-15.5); WHITE BLOOD COUNT (AUTO) 12.4 K/uL (4.8-10.8)
[2021-02-13 06:49] LABS: ALBUMIN 1.6 g/dL (3.5-5.0); BILIRUBIN,TOTAL 0.9 mg/dL (0.2-1.0); CREATININE 2.7 mg/dL (0.5-1.5); POTASSIUM 3.4 mmol/L (3.5-5.1); TOTAL PROTEIN, SERUM 5.7 g/dL (6.0-8.3)
[2021-02-13] MEDS: FUROSEMIDE IV SCH ×4 (07:24→18:21)
[2021-02-13] MEDS: SODIUM CHLORIDE IV SCH ×4 (07:24→18:21)
[2021-02-13] MEDS: ACETAZOLAMIDE SODIUM 500 MG VIAL IV SCH (08:10)
[2021-02-13] MEDS: POTASSIUM CHLORIDE 10% ELIXIR 20 MEQ/15 ML UDCUP PO PRN ×2 (08:11→10:23)
[2021-02-13] MEDS: PANTOPRAZOLE 40 MG/VIAL IVP SCH ×2 (08:11→20:50)
[2021-02-13] MEDS: AMIODARONE 200 MG TABLET PO SCH (08:12)
[2021-02-13] MEDS: BALSAM PERU/CASTOR OIL 60 GM TUBE TP SCH ×2 (08:12→19:46)
[2021-02-13] MEDS: NYSTATIN 15 GM POWDER TP SCH ×2 (08:12→19:46)
[2021-02-13] MEDS: ENOXAPARIN SODIUM 30 MG/0.3 ML SQ SCH (08:12)
[2021-02-13] MEDS: SPIRONOLACTONE 25 MG TAB PEG SCH ×2 (08:12→20:50)
[2021-02-13] MEDS: POTASSIUM CHLORIDE 20MEQ/100ML 100 ML IV PRN (20:50)
[2021-02-13] MEDS: POTASSIUM CHLORIDE 20 MEQ/100 ML BAG IV SCH (20:51)
[2021-02-13] MEDS: FLUOXETINE HCL 20 MG CAPSULE PEG SCH (20:51)
[2021-02-14] VITALS (24 sets, daily range): BP systolic 90–143; BP diastolic 36–87
[2021-02-14] MEDS: POTASSIUM CHLORIDE 20MEQ/100ML 100 ML IV PRN (00:18)
[2021-02-14] MEDS: INSULIN HUMULIN R 100 UNIT/ML 3ML SQ SCH ×4 (01:01→17:25)
[2021-02-14 06:44] LABS: HEMATOCRIT 24.7 % (36-48); MEAN CORPUSCULAR HEMOGLOBIN 27.8 pg (27.0-33.0); MEAN CORPUSCULAR HGB CONC 30.8 g/dL (32.0-36.0); MEAN CORPUSCULAR VOLUME 90.5 fL (79-99); NUCLEATED RED BLOOD CELLS 0.9 % (0.0-0.19); RED BLOOD CELL COUNT(AUTO) 2.73 MIL/uL (4.00-5.50); RED CELL DISTRIBUTION WIDTH 20.7 % (11.0-15.5); WHITE BLOOD COUNT (AUTO) 11.7 K/uL (4.8-10.8)
[2021-02-14 07:20] LABS: ALBUMIN 1.7 g/dL (3.5-5.0); BILIRUBIN,TOTAL 0.9 mg/dL (0.2-1.0); CREATININE 2.6 mg/dL (0.5-1.5); POTASSIUM 4.3 mmol/L (3.5-5.1); TOTAL PROTEIN, SERUM 6.1 g/dL (6.0-8.3)
[2021-02-14] MEDS: ENOXAPARIN SODIUM 30 MG/0.3 ML SQ SCH (08:13)
[2021-02-14] MEDS: NYSTATIN 15 GM POWDER TP SCH ×2 (08:13→21:24)
[2021-02-14] MEDS: PANTOPRAZOLE 40 MG/VIAL IVP SCH ×2 (08:14→21:24)
[2021-02-14] MEDS: AMIODARONE 200 MG TABLET PO SCH (08:14)
[2021-02-14] MEDS: SPIRONOLACTONE 25 MG TAB PEG SCH ×2 (08:14→21:24)
[2021-02-14] MEDS: BALSAM PERU/CASTOR OIL 60 GM TUBE TP SCH ×2 (08:14→21:24)
[2021-02-14] MEDS: ACETAZOLAMIDE SODIUM 500 MG VIAL IV SCH (08:29)
[2021-02-14] MEDS: SODIUM CHLORIDE IV SCH ×2 (09:31)
[2021-02-14] MEDS: FUROSEMIDE IV SCH ×2 (09:31)
[2021-02-14] MEDS: FLUOXETINE HCL 20 MG CAPSULE PEG SCH (21:24)
[2021-02-14] MEDS: POTASSIUM CHLORIDE 20 MEQ/100 ML BAG IV SCH (21:25)
[2021-02-15] VITALS (24 sets, daily range): BP systolic 80–132; BP diastolic 43–61
[2021-02-15] MEDS: INSULIN HUMULIN R 100 UNIT/ML 3ML SQ SCH ×4 (00:54→18:19)
[2021-02-15] MEDS: ACETAMINOPHEN 650 MG/20.3 ML UDCUP PEG PRN ×2 (06:13→15:39)
[2021-02-15] MEDS: FUROSEMIDE IV SCH ×2 (08:14)
[2021-02-15] MEDS: SODIUM CHLORIDE IV SCH ×2 (08:14)
[2021-02-15] MEDS: SPIRONOLACTONE 25 MG TAB PEG SCH ×2 (08:56→20:43)
[2021-02-15] MEDS: AMIODARONE 200 MG TABLET PO SCH (08:56)
[2021-02-15] MEDS: PANTOPRAZOLE 40 MG/VIAL IVP SCH ×2 (08:56→20:43)
[2021-02-15] MEDS: BALSAM PERU/CASTOR OIL 60 GM TUBE TP SCH (08:58)
[2021-02-15] MEDS: NYSTATIN 15 GM POWDER TP SCH (08:58)
[2021-02-15 09:14] LABS: BASOPHILS % (AUTO) 0.7 % (0.0-5.0); EOSINOPHILS % (AUTO) 2.1 % (0.0-8.0); HEMATOCRIT 25.7 % (36-48); LYMPHOCYTES % (AUTO) 26.7 % (21.0-51.0); MEAN CORPUSCULAR HEMOGLOBIN 28.2 pg (27.0-33.0); MEAN CORPUSCULAR HGB CONC 31.1 g/dL (32.0-36.0); MEAN CORPUSCULAR VOLUME 90.5 fL (79-99); NEUTROPHILS % (AUTO) 47.9 % (40.0-77.0); NUCLEATED RED BLOOD CELLS 0.7 % (0.0-0.19); PLATELET COUNT (AUTO) 161 K/uL (130-400); RED BLOOD CELL COUNT(AUTO) 2.84 MIL/uL (4.00-5.50); RED CELL DISTRIBUTION WIDTH 20.7 % (11.0-15.5); WHITE BLOOD COUNT (AUTO) 13.5 K/uL (4.8-10.8)
[2021-02-15 09:28] LABS: ALBUMIN 1.8 g/dL (3.5-5.0); BILIRUBIN,TOTAL 0.9 mg/dL (0.2-1.0); CREATININE 2.4 mg/dL (0.5-1.5); POTASSIUM 3.5 mmol/L (3.5-5.1); TOTAL PROTEIN, SERUM 6.2 g/dL (6.0-8.3)
[2021-02-15] MEDS: ENOXAPARIN SODIUM 30 MG/0.3 ML SQ SCH (11:13)
[2021-02-15] MEDS: ACETAZOLAMIDE SODIUM 500 MG VIAL IV SCH (11:24)
[2021-02-15 12:17] LABS: APPEARANCE,URINE Turbid (CLEAR); BILIRUBIN,URINE Negative (NEGATIVE); COLOR,URINE Yellow (YELLOW); GLUCOSE, URINE (UA) Negative (NEGATIVE); KETONES,URINE Negative (NEGATIVE); LEUKOCYTE ESTERASE ,URINE Large (NEGATIVE); NITRATE,URINE Positive (NEGATIVE); OCCULT BLOOD,URINE Moderate (NEGATIVE); PROTEIN,URINE Trace mg/dL (NEGATIVE); UROBILINOGEN,URINE 0.2 mg/dL (0.2-1.0)
[2021-02-15 12:33] LABS: BACTERIA,URINE Moderate /HPF (None Seen); WBC,URINE >100 /HPF (0-1)
[2021-02-15 12:34] LABS: SQUAMOUS EPITHELIAL CELL,UR 0-2 /HPF (0-2)
[2021-02-15] MEDS: POTASSIUM CHLORIDE 20MEQ/100ML 100 ML IV PRN (13:51)
[2021-02-15] MEDS: POTASSIUM CHLORIDE 20 MEQ/100 ML BAG IV SCH (20:24)
[2021-02-15] MEDS: FLUOXETINE HCL 20 MG CAPSULE PEG SCH (20:43)
[2021-02-16] VITALS (22 sets, daily range): BP systolic 89–115; BP diastolic 42–62
[2021-02-16] MEDS: ERYTHROMYCIN BASE 250 MG TABLET PEG SCH ×4 (00:57→17:43)
[2021-02-16] MEDS: INSULIN HUMULIN R 100 UNIT/ML 3ML SQ SCH ×4 (00:58→17:44)
[2021-02-16 06:39] LABS: HEMATOCRIT 24.9 % (36-48); MEAN CORPUSCULAR HEMOGLOBIN 28.3 pg (27.0-33.0); MEAN CORPUSCULAR HGB CONC 30.9 g/dL (32.0-36.0); MEAN CORPUSCULAR VOLUME 91.5 fL (79-99); NUCLEATED RED BLOOD CELLS 0.7 % (0.0-0.19); RED BLOOD CELL COUNT(AUTO) 2.72 MIL/uL (4.00-5.50); RED CELL DISTRIBUTION WIDTH 20.4 % (11.0-15.5); WHITE BLOOD COUNT (AUTO) 14.1 K/uL (4.8-10.8)
[2021-02-16 06:50] LABS: CREATININE 2.3 mg/dL (0.5-1.5); POTASSIUM 3.2 mmol/L (3.5-5.1)
[2021-02-16] MEDS: ACETAZOLAMIDE SODIUM 500 MG VIAL IV SCH (09:13)
[2021-02-16] MEDS: PANTOPRAZOLE 40 MG/VIAL IVP SCH ×2 (09:14→19:54)
[2021-02-16] MEDS: SPIRONOLACTONE 25 MG TAB PEG SCH ×2 (09:14→19:54)
[2021-02-16] MEDS: AMIODARONE 200 MG TABLET PO SCH (09:14)
[2021-02-16] MEDS: ENOXAPARIN SODIUM 30 MG/0.3 ML SQ SCH (09:15)
[2021-02-16] MEDS: POTASSIUM CHLORIDE 20MEQ/100ML 100 ML IV PRN ×2 (09:17→17:44)
[2021-02-16] MEDS ORDERED: POTASSIUM CHLORIDE 10% ELIXIR 20 MEQ/15 ML UDCUP PO SCH (19:00)
[2021-02-16] MEDS: FLUOXETINE HCL 20 MG CAPSULE PEG SCH (19:54)
[2021-02-16] MEDS: FUROSEMIDE IV SCH ×2 (20:16)
[2021-02-16] MEDS: SODIUM CHLORIDE IV SCH ×2 (20:16)
[2021-02-16] MEDS: MEROPENEM 1 GM VIAL IVP SCH (21:00)
[2021-02-16] MEDS ORDERED: PHARMACY COMMUNICATION MISC SCH (22:30)
[2021-02-17] VITALS (21 sets, daily range): BP systolic 82–128; BP diastolic 36–62
[2021-02-17] MEDS: ERYTHROMYCIN BASE 250 MG TABLET PEG SCH ×5 (01:06→23:23)
[2021-02-17 04:36] LABS: BASOPHILS % (AUTO) 0.3 % (0.0-5.0); HEMATOCRIT 24.9 % (36-48); LYMPHOCYTES % (AUTO) 16.8 % (21.0-51.0); MEAN CORPUSCULAR HEMOGLOBIN 28.1 pg (27.0-33.0); MEAN CORPUSCULAR HGB CONC 30.5 g/dL (32.0-36.0); MEAN CORPUSCULAR VOLUME 92.2 fL (79-99); MONOCYTES % (AUTO) 12.3 % (3.0-13.0); NEUTROPHILS % (AUTO) 58.6 % (40.0-77.0); NUCLEATED RED BLOOD CELLS 0.7 % (0.0-0.19); PLATELET COUNT (AUTO) 210 K/uL (130-400); RED CELL DISTRIBUTION WIDTH 20.4 % (11.0-15.5); WHITE BLOOD COUNT (AUTO) 13.4 K/uL (4.8-10.8)
[2021-02-17 04:44] LABS: CREATININE 2.1 mg/dL (0.5-1.5); POTASSIUM 4.6 mmol/L (3.5-5.1)
[2021-02-17] MEDS: INSULIN HUMULIN R 100 UNIT/ML 3ML SQ SCH ×5 (06:36→23:32)
[2021-02-17] MEDS ORDERED: MEROPENEM 1 GM VIAL IVP SCH (08:00)
[2021-02-17] MEDS ORDERED: MEROPENEM 1 GM in 0.9%NACL 100ML 100 ML IVP SCH (08:30)
[2021-02-17] MEDS: AMIODARONE 200 MG TABLET PO SCH (08:39)
[2021-02-17] MEDS: PANTOPRAZOLE 40 MG/VIAL IVP SCH ×2 (08:39→20:19)
[2021-02-17] MEDS: SPIRONOLACTONE 25 MG TAB PEG SCH ×2 (08:39→20:19)
[2021-02-17] MEDS: ENOXAPARIN SODIUM 30 MG/0.3 ML SQ SCH (08:40)
[2021-02-17] MEDS: SODIUM CHLORIDE IV SCH ×2 (08:44)
[2021-02-17] MEDS: FUROSEMIDE IV SCH ×2 (08:44)
[2021-02-17] MEDS: MEROPENEM 1 GM VIAL IVP SCH ×2 (09:00→20:19)
[2021-02-17 09:43] LABS: ABG BASE EXCESS 3.5 mmol/L (-2.0-3.0); ABG HCO3 31.2 mmol/L (21.0-28.0); ABG OXYGEN SATURATION 85.9 % (95.0-99.0); ABG PCO2 67 mmHg (32-45)
[2021-02-17] MEDS: ACETAZOLAMIDE SODIUM 500 MG VIAL IV SCH (10:31)
[2021-02-17] MEDS: FLUOXETINE HCL 20 MG CAPSULE PEG SCH (20:19)
[2021-02-17] MEDS: MELATONIN PEG PRN (20:26)
[2021-02-17] MEDS: NOREPINEPHRIN 4MG/NS 250ML 250 ML IV SCH (20:45)
[2021-02-18] VITALS (27 sets, daily range): BP systolic 89–123; BP diastolic 37–63
[2021-02-18 04:24] LABS: BASOPHILS % (AUTO) 0.5 % (0.0-5.0); EOSINOPHILS % (AUTO) 1.3 % (0.0-8.0); LYMPHOCYTES % (AUTO) 21.8 % (21.0-51.0); MEAN CORPUSCULAR HEMOGLOBIN 27.6 pg (27.0-33.0); MEAN CORPUSCULAR HGB CONC 30.9 g/dL (32.0-36.0); MEAN CORPUSCULAR VOLUME 89.5 fL (79-99); MONOCYTES % (AUTO) 8.8 % (3.0-13.0); NEUTROPHILS % (AUTO) 59.3 % (40.0-77.0); NUCLEATED RED BLOOD CELLS 1.5 % (0.0-0.19); PLATELET COUNT (AUTO) 229 K/uL (130-400); RED BLOOD CELL COUNT(AUTO) 2.57 MIL/uL (4.00-5.50); RED CELL DISTRIBUTION WIDTH 20.4 % (11.0-15.5); WHITE BLOOD COUNT (AUTO) 18.8 K/uL (4.8-10.8)
[2021-02-18 04:43] LABS: ALBUMIN 1.7 g/dL (3.5-5.0); BILIRUBIN,TOTAL 0.8 mg/dL (0.2-1.0); CREATININE 1.9 mg/dL (0.5-1.5); POTASSIUM 3.2 mmol/L (3.5-5.1)
[2021-02-18] MEDS: POTASSIUM CHLORIDE 20MEQ/100ML 100 ML IV PRN ×2 (05:21→08:05)
[2021-02-18] MEDS: INSULIN HUMULIN R 100 UNIT/ML 3ML SQ SCH ×3 (06:00→17:03)
[2021-02-18] MEDS: SPIRONOLACTONE 25 MG TAB PEG SCH ×2 (08:18→20:38)
[2021-02-18] MEDS: AMIODARONE 200 MG TABLET PO SCH (08:18)
[2021-02-18] MEDS: ACETAZOLAMIDE SODIUM 500 MG VIAL IV SCH (08:18)
[2021-02-18] MEDS: PANTOPRAZOLE 40 MG/VIAL IVP SCH ×2 (08:19→20:38)
[2021-02-18] MEDS: ENOXAPARIN SODIUM 30 MG/0.3 ML SQ SCH (08:22)
[2021-02-18] MEDS: ERYTHROMYCIN BASE 250 MG TABLET PEG SCH ×4 (08:45→23:58)
[2021-02-18] MEDS: MEROPENEM 1 GM VIAL IVP SCH ×2 (08:46→20:38)
[2021-02-18 09:24] LABS: ABG BASE EXCESS 2.1 mmol/L (-2.0-3.0); ABG HCO3 29.1 mmol/L (21.0-28.0); ABG OXYGEN SATURATION 93.1 % (95.0-99.0); ABG PCO2 59 mmHg (32-45)
[2021-02-18] MEDS: NOREPINEPHRIN 4MG/NS 250ML 250 ML IV SCH (13:31)
[2021-02-18] MEDS: FLUOXETINE HCL 20 MG CAPSULE PEG SCH (20:38)
[2021-02-18] MEDS: MELATONIN PEG PRN (20:38)
[2021-02-18] MEDS ORDERED: 0.9%NACL 100ML 100 ML ONE (22:30)
[2021-02-18] MEDS ORDERED: FUROSEMIDE 100MG VIAL ONE (22:31)
[2021-02-19] VITALS (56 sets, daily range): BP systolic 93–121; BP diastolic 45–71
[2021-02-19] MEDS: INSULIN HUMULIN R 100 UNIT/ML 3ML SQ SCH ×4 (00:13→17:59)
[2021-02-19 05:44] LABS: MEAN CORPUSCULAR HEMOGLOBIN 27.9 pg (27.0-33.0); MEAN CORPUSCULAR HGB CONC 30.4 g/dL (32.0-36.0); MEAN CORPUSCULAR VOLUME 91.6 fL (79-99); NUCLEATED RED BLOOD CELLS 1.2 % (0.0-0.19); RED BLOOD CELL COUNT(AUTO) 2.51 MIL/uL (4.00-5.50); RED CELL DISTRIBUTION WIDTH 20.4 % (11.0-15.5); WHITE BLOOD COUNT (AUTO) 17.4 K/uL (4.8-10.8)
[2021-02-19 05:55] LABS: CREATININE 1.8 mg/dL (0.5-1.5)
[2021-02-19 05:59] LABS: POTASSIUM 2.5 mmol/L (3.5-5.1)
[2021-02-19] MEDS: POTASSIUM CHLORIDE 20MEQ/100ML 100 ML IV PRN ×2 (06:03→08:01)
[2021-02-19] MEDS: POTASSIUM CHLORIDE 10% ELIXIR 20 MEQ/15 ML UDCUP PO PRN ×4 (06:06→12:37)
[2021-02-19 06:54] LABS: ABG BASE EXCESS 3.6 mmol/L (-2.0-3.0); ABG HCO3 29.5 mmol/L (21.0-28.0); ABG OXYGEN SATURATION 96.1 % (95.0-99.0); ABG PCO2 49 mmHg (32-45)
[2021-02-19] MEDS: ERYTHROMYCIN BASE 250 MG TABLET PEG SCH ×3 (08:00→17:16)
[2021-02-19] MEDS: PANTOPRAZOLE 40 MG/VIAL IVP SCH ×2 (08:01→21:52)
[2021-02-19] MEDS: AMIODARONE 200 MG TABLET PO SCH (08:01)
[2021-02-19] MEDS: ACETAZOLAMIDE SODIUM 500 MG VIAL IV SCH (08:01)
[2021-02-19] MEDS: SPIRONOLACTONE 25 MG TAB PEG SCH ×2 (08:01→21:52)
[2021-02-19] MEDS: FUROSEMIDE IV SCH ×2 (08:04)
[2021-02-19] MEDS: SODIUM CHLORIDE IV SCH ×2 (08:04)
[2021-02-19] MEDS: MEROPENEM 1 GM VIAL IVP SCH ×2 (08:16→21:52)
[2021-02-19] MEDS: ENOXAPARIN SODIUM 30 MG/0.3 ML SQ SCH (09:00)
[2021-02-19] MEDS: NOREPINEPHRIN 4MG/NS 250ML 250 ML IV SCH (13:32)
[2021-02-19] MEDS: ALTEPLASE 2MG VIAL 2 MG/VIAL VIAL IVCATH SCH ×2 (17:13→17:18)
[2021-02-19] MEDS: IPRATROPIUM 0.5 MG/2.5 ML INH IH SCH ×2 (18:21→21:34)
[2021-02-19] MEDS: FLUOXETINE HCL 20 MG CAPSULE PEG SCH (21:53)
[2021-02-20] VITALS (29 sets, daily range): BP systolic 90–137; BP diastolic 44–69
[2021-02-20] MEDS: INSULIN HUMULIN R 100 UNIT/ML 3ML SQ SCH ×4 (00:34→17:22)
[2021-02-20] MEDS: ERYTHROMYCIN BASE 250 MG TABLET PEG SCH ×4 (00:34→17:21)
[2021-02-20] MEDS: IPRATROPIUM 0.5 MG/2.5 ML INH IH SCH ×6 (02:37→21:50)
[2021-02-20] MEDS: NOREPINEPHRIN 4MG/NS 250ML 250 ML IV SCH (03:11)
[2021-02-20 04:16] LABS: BASOPHILS % (AUTO) 0.3 % (0.0-5.0); EOSINOPHILS % (AUTO) 2.5 % (0.0-8.0); HEMATOCRIT 23.2 % (36-48); LYMPHOCYTES % (AUTO) 18.8 % (21.0-51.0); MEAN CORPUSCULAR HEMOGLOBIN 27.7 pg (27.0-33.0); MEAN CORPUSCULAR HGB CONC 30.6 g/dL (32.0-36.0); MEAN CORPUSCULAR VOLUME 90.6 fL (79-99); NEUTROPHILS % (AUTO) 51.9 % (40.0-77.0); NUCLEATED RED BLOOD CELLS 1.4 % (0.0-0.19); PLATELET COUNT (AUTO) 258 K/uL (130-400); RED BLOOD CELL COUNT(AUTO) 2.56 MIL/uL (4.00-5.50); RED CELL DISTRIBUTION WIDTH 20.7 % (11.0-15.5); WHITE BLOOD COUNT (AUTO) 18.8 K/uL (4.8-10.8)
[2021-02-20 04:35] LABS: ALBUMIN 1.8 g/dL (3.5-5.0); BILIRUBIN,TOTAL 0.7 mg/dL (0.2-1.0); CREATININE 1.7 mg/dL (0.5-1.5); POTASSIUM 3.5 mmol/L (3.5-5.1); TOTAL PROTEIN, SERUM 6.1 g/dL (6.0-8.3)
[2021-02-20 04:36] LABS: ABG BASE EXCESS 4.9 mmol/L (-2.0-3.0); ABG HCO3 29.5 mmol/L (21.0-28.0); ABG OXYGEN SATURATION 96.1 % (95.0-99.0); ABG PCO2 44 mmHg (32-45)
[2021-02-20] MEDS: ACETAZOLAMIDE SODIUM 500 MG VIAL IV SCH (10:24)
[2021-02-20] MEDS: SPIRONOLACTONE 25 MG TAB PEG SCH ×2 (10:24→20:23)
[2021-02-20] MEDS: AMIODARONE 200 MG TABLET PO SCH (10:24)
[2021-02-20] MEDS: PANTOPRAZOLE 40 MG/VIAL IVP SCH (10:24)
[2021-02-20] MEDS: ENOXAPARIN SODIUM 30 MG/0.3 ML SQ SCH (10:25)
[2021-02-20] MEDS: SODIUM CHLORIDE IV SCH ×2 (10:26)
[2021-02-20] MEDS: FUROSEMIDE IV SCH ×2 (10:26)
[2021-02-20] MEDS: MEROPENEM 1 GM VIAL IVP SCH ×2 (10:28→20:23)
[2021-02-20] MEDS: FUROSEMIDE 40MG VIAL IV SCH (17:21)
[2021-02-20] MEDS: POTASSIUM CHLORIDE 20MEQ/100ML 100 ML IV PRN (17:24)
[2021-02-20] MEDS: FLUOXETINE HCL 20 MG CAPSULE PEG SCH (20:23)
[2021-02-20] MEDS: KCL 20 MEQ ERTAB PO SCH (20:24)
[2021-02-20] MEDS: BALSAM PERU/CASTOR OIL 60 GM TUBE TP SCH (20:24)
[2021-02-21] VITALS (24 sets, daily range): BP systolic 101–139; BP diastolic 50–79
[2021-02-21] MEDS: IPRATROPIUM 0.5 MG/2.5 ML INH IH SCH ×6 (00:03→19:35)
[2021-02-21] MEDS: ERYTHROMYCIN BASE 250 MG TABLET PEG SCH ×4 (00:43→16:41)
[2021-02-21] MEDS: INSULIN HUMULIN R 100 UNIT/ML 3ML SQ SCH ×4 (00:48→17:52)
[2021-02-21] MEDS: NOREPINEPHRIN 4MG/NS 250ML 250 ML IV SCH (02:00)
[2021-02-21 04:15] LABS: ABG BASE EXCESS 6.3 mmol/L (-2.0-3.0); ABG HCO3 30.1 mmol/L (21.0-28.0); ABG OXYGEN SATURATION 97.5 % (95.0-99.0); ABG PCO2 40 mmHg (32-45)
[2021-02-21] MEDS: FUROSEMIDE 40MG VIAL IV SCH ×2 (05:46→16:41)
[2021-02-21 06:51] LABS: BASOPHILS % (AUTO) 0.7 % (0.0-5.0); EOSINOPHILS % (AUTO) 3.3 % (0.0-8.0); MEAN CORPUSCULAR HEMOGLOBIN 28.1 pg (27.0-33.0); MEAN CORPUSCULAR HGB CONC 30.9 g/dL (32.0-36.0); MEAN CORPUSCULAR VOLUME 90.9 fL (79-99); NEUTROPHILS % (AUTO) 48.6 % (40.0-77.0); NUCLEATED RED BLOOD CELLS 1.1 % (0.0-0.19); PLATELET COUNT (AUTO) 227 K/uL (130-400); RED BLOOD CELL COUNT(AUTO) 2.42 MIL/uL (4.00-5.50); RED CELL DISTRIBUTION WIDTH 20.8 % (11.0-15.5); WHITE BLOOD COUNT (AUTO) 15.1 K/uL (4.8-10.8)
[2021-02-21 07:06] LABS: ALBUMIN 1.7 g/dL (3.5-5.0); BILIRUBIN,TOTAL 0.6 mg/dL (0.2-1.0); CREATININE 1.5 mg/dL (0.5-1.5); POTASSIUM 3.4 mmol/L (3.5-5.1); TOTAL PROTEIN, SERUM 5.7 g/dL (6.0-8.3)
[2021-02-21] MEDS: KCL 20 MEQ ERTAB PO SCH ×2 (08:35→20:22)
[2021-02-21] MEDS: MEROPENEM 1 GM VIAL IVP SCH ×2 (08:35→20:22)
[2021-02-21] MEDS: AMIODARONE 200 MG TABLET PO SCH (08:35)
[2021-02-21] MEDS: ENOXAPARIN SODIUM 30 MG/0.3 ML SQ SCH (08:36)
[2021-02-21] MEDS: SPIRONOLACTONE 25 MG TAB PEG SCH ×2 (08:36→20:22)
[2021-02-21] MEDS: ACETAZOLAMIDE SODIUM 500 MG VIAL IV SCH (08:36)
[2021-02-21] MEDS: BALSAM PERU/CASTOR OIL 60 GM TUBE TP SCH ×2 (08:37→20:23)
[2021-02-21 19:59] LABS: ALBUMIN 1.8 g/dL (3.5-5.0); BILIRUBIN,TOTAL 0.7 mg/dL (0.2-1.0); CREATININE 1.4 mg/dL (0.5-1.5); POTASSIUM 3.3 mmol/L (3.5-5.1)
[2021-02-21] MEDS: FLUOXETINE HCL 20 MG CAPSULE PEG SCH (20:21)
[2021-02-21 22:09] LABS: ABG BASE EXCESS 4.2 mmol/L (-2.0-3.0); ABG HCO3 27.8 mmol/L (21.0-28.0); ABG OXYGEN SATURATION 96.6 % (95.0-99.0); ABG PCO2 38 mmHg (32-45)
[2021-02-22] VITALS (23 sets, daily range): BP systolic 84–131; BP diastolic 47–77
[2021-02-22] MEDS: ERYTHROMYCIN BASE 250 MG TABLET PEG SCH ×4 (01:45→16:54)
[2021-02-22] MEDS: INSULIN HUMULIN R 100 UNIT/ML 3ML SQ SCH ×4 (01:50→17:57)
[2021-02-22] MEDS: IPRATROPIUM 0.5 MG/2.5 ML INH IH SCH ×6 (02:54→21:28)
[2021-02-22] MEDS: FUROSEMIDE 40MG VIAL IV SCH ×2 (05:25→16:53)
[2021-02-22 06:25] LABS: BASOPHILS % (AUTO) 0.2 % (0.0-5.0); EOSINOPHILS % (AUTO) 2.8 % (0.0-8.0); LYMPHOCYTES % (AUTO) 19.5 % (21.0-51.0); MEAN CORPUSCULAR HEMOGLOBIN 28.1 pg (27.0-33.0); MEAN CORPUSCULAR HGB CONC 32.3 g/dL (32.0-36.0); MONOCYTES % (AUTO) 7.7 % (3.0-13.0); NEUTROPHILS % (AUTO) 52.8 % (40.0-77.0); NUCLEATED RED BLOOD CELLS 0.5 % (0.0-0.19); PLATELET COUNT (AUTO) 216 K/uL (130-400); RED BLOOD CELL COUNT(AUTO) 2.99 MIL/uL (4.00-5.50); RED CELL DISTRIBUTION WIDTH 20.3 % (11.0-15.5); WHITE BLOOD COUNT (AUTO) 16.1 K/uL (4.8-10.8)
[2021-02-22] MEDS: SPIRONOLACTONE 25 MG TAB PEG SCH ×2 (07:54→20:02)
[2021-02-22] MEDS: KCL 20 MEQ ERTAB PO SCH ×2 (07:54→20:01)
[2021-02-22] MEDS: AMIODARONE 200 MG TABLET PO SCH (07:54)
[2021-02-22] MEDS: ENOXAPARIN SODIUM 30 MG/0.3 ML SQ SCH (07:55)
[2021-02-22] MEDS: ACETAZOLAMIDE SODIUM 500 MG VIAL IV SCH (07:56)
[2021-02-22] MEDS: BALSAM PERU/CASTOR OIL 60 GM TUBE TP SCH ×2 (07:56→21:00)
[2021-02-22] MEDS: MEROPENEM 1 GM VIAL IVP SCH (08:00)
[2021-02-22] MEDS: POTASSIUM CHLORIDE 20MEQ/100ML 100 ML IV PRN (16:57)
[2021-02-22] MEDS: FLUOXETINE HCL 20 MG CAPSULE PEG SCH (20:01)
[2021-02-22] MEDS: MELATONIN PEG PRN (20:05)
[2021-02-22 20:10] LABS: ALBUMIN 1.9 g/dL (3.5-5.0); BILIRUBIN,TOTAL 0.8 mg/dL (0.2-1.0); CREATININE 1.3 mg/dL (0.5-1.5); POTASSIUM 3.2 mmol/L (3.5-5.1); TOTAL PROTEIN, SERUM 6.2 g/dL (6.0-8.3)
[2021-02-23] VITALS (23 sets, daily range): BP systolic 91–121; BP diastolic 47–70
[2021-02-23] MEDS: MEROPENEM 1 GM VIAL IVP SCH ×3 (01:30→20:15)
[2021-02-23] MEDS: ERYTHROMYCIN BASE 250 MG TABLET PEG SCH ×4 (01:30→16:10)
[2021-02-23] MEDS: POTASSIUM CHLORIDE 20MEQ/100ML 100 ML IV PRN (01:39)
[2021-02-23] MEDS: IPRATROPIUM 0.5 MG/2.5 ML INH IH SCH ×6 (02:45→21:44)
[2021-02-23 03:45] LABS: BASOPHILS % (AUTO) 0.2 % (0.0-5.0); EOSINOPHILS % (AUTO) 2.4 % (0.0-8.0); HEMATOCRIT 28.2 % (36-48); LYMPHOCYTES % (AUTO) 18.6 % (21.0-51.0); MEAN CORPUSCULAR HGB CONC 31.9 g/dL (32.0-36.0); MEAN CORPUSCULAR VOLUME 87.9 fL (79-99); MONOCYTES % (AUTO) 8.3 % (3.0-13.0); NEUTROPHILS % (AUTO) 53.3 % (40.0-77.0); NUCLEATED RED BLOOD CELLS 0.5 % (0.0-0.19); PLATELET COUNT (AUTO) 201 K/uL (130-400); RED BLOOD CELL COUNT(AUTO) 3.21 MIL/uL (4.00-5.50); RED CELL DISTRIBUTION WIDTH 20.2 % (11.0-15.5); WHITE BLOOD COUNT (AUTO) 16.4 K/uL (4.8-10.8)
[2021-02-23 03:59] LABS: ALBUMIN 1.9 g/dL (3.5-5.0); BILIRUBIN,TOTAL 0.7 mg/dL (0.2-1.0); CREATININE 1.4 mg/dL (0.5-1.5); POTASSIUM 3.7 mmol/L (3.5-5.1); TOTAL PROTEIN, SERUM 6.1 g/dL (6.0-8.3)
[2021-02-23] MEDS: FUROSEMIDE 40MG VIAL IV SCH ×2 (05:14→16:10)
[2021-02-23] MEDS: INSULIN HUMULIN R 100 UNIT/ML 3ML SQ SCH ×4 (05:16→16:11)
[2021-02-23] MEDS: ACETAZOLAMIDE SODIUM 500 MG VIAL IV SCH (08:13)
[2021-02-23] MEDS: AMIODARONE 200 MG TABLET PO SCH (08:13)
[2021-02-23] MEDS: KCL 20 MEQ ERTAB PO SCH ×2 (08:14→20:16)
[2021-02-23] MEDS: ENOXAPARIN SODIUM 30 MG/0.3 ML SQ SCH (08:15)
[2021-02-23] MEDS: SPIRONOLACTONE 25 MG TAB PEG SCH ×2 (08:15→20:16)
[2021-02-23] MEDS: BALSAM PERU/CASTOR OIL 60 GM TUBE TP SCH ×2 (08:16→20:16)
[2021-02-23] MEDS: FLUOXETINE HCL 20 MG CAPSULE PEG SCH (20:16)
[2021-02-23] MEDS: MELATONIN PEG PRN (20:19)
[2021-02-24] VITALS (24 sets, daily range): BP systolic 91–131; BP diastolic 47–77
[2021-02-24] MEDS: ERYTHROMYCIN BASE 250 MG TABLET PEG SCH ×4 (00:16→16:39)
[2021-02-24] MEDS: INSULIN HUMULIN R 100 UNIT/ML 3ML SQ SCH ×4 (00:31→16:42)
[2021-02-24] MEDS: IPRATROPIUM 0.5 MG/2.5 ML INH IH SCH ×6 (02:44→22:08)
[2021-02-24 03:37] LABS: BASOPHILS % (AUTO) 0.3 % (0.0-5.0); EOSINOPHILS % (AUTO) 3.4 % (0.0-8.0); HEMATOCRIT 30.6 % (36-48); LYMPHOCYTES % (AUTO) 21.5 % (21.0-51.0); MEAN CORPUSCULAR HEMOGLOBIN 27.9 pg (27.0-33.0); MEAN CORPUSCULAR VOLUME 89.7 fL (79-99); MONOCYTES % (AUTO) 8.1 % (3.0-13.0); NEUTROPHILS % (AUTO) 51.4 % (40.0-77.0); NUCLEATED RED BLOOD CELLS 0.8 % (0.0-0.19); PLATELET COUNT (AUTO) 187 K/uL (130-400); RED BLOOD CELL COUNT(AUTO) 3.41 MIL/uL (4.00-5.50); RED CELL DISTRIBUTION WIDTH 20.1 % (11.0-15.5)
[2021-02-24 03:55] LABS: ALBUMIN 1.9 g/dL (3.5-5.0); BILIRUBIN,TOTAL 0.6 mg/dL (0.2-1.0); CREATININE 1.2 mg/dL (0.5-1.5); POTASSIUM 3.4 mmol/L (3.5-5.1); TOTAL PROTEIN, SERUM 6.3 g/dL (6.0-8.3)
[2021-02-24] MEDS: FUROSEMIDE 40MG VIAL IV SCH ×2 (05:17→16:39)
[2021-02-24] MEDS: MEROPENEM 1 GM VIAL IVP SCH ×2 (08:12→20:56)
[2021-02-24] MEDS: AMIODARONE 200 MG TABLET PO SCH (08:12)
[2021-02-24] MEDS: SPIRONOLACTONE 25 MG TAB PEG SCH ×2 (08:12→20:57)
[2021-02-24] MEDS: ENOXAPARIN SODIUM 30 MG/0.3 ML SQ SCH (08:13)
[2021-02-24] MEDS: ACETAZOLAMIDE SODIUM 500 MG VIAL IV SCH (08:13)
[2021-02-24] MEDS: KCL 20 MEQ ERTAB PO SCH ×2 (08:13→20:56)
[2021-02-24] MEDS: BALSAM PERU/CASTOR OIL 60 GM TUBE TP SCH ×2 (08:14→20:58)
[2021-02-24] MEDS ORDERED: COMPOUND IV MISC 1 EACH IVSOLN MISC PRN (10:00)
[2021-02-24] MEDS: FLUOXETINE HCL 20 MG CAPSULE PEG SCH (20:57)
[2021-02-25] VITALS (22 sets, daily range): BP systolic 82–123; BP diastolic 41–69
[2021-02-25] MEDS: ERYTHROMYCIN BASE 250 MG TABLET PEG SCH ×4 (00:38→17:04)
[2021-02-25] MEDS: INSULIN HUMULIN R 100 UNIT/ML 3ML SQ SCH ×4 (00:40→17:04)
[2021-02-25] MEDS: IPRATROPIUM 0.5 MG/2.5 ML INH IH SCH ×6 (02:41→21:49)
[2021-02-25 03:36] LABS: BASOPHILS % (AUTO) 0.9 % (0.0-5.0); EOSINOPHILS % (AUTO) 5.1 % (0.0-8.0); HEMATOCRIT 30.4 % (36-48); LYMPHOCYTES % (AUTO) 20.5 % (21.0-51.0); MEAN CORPUSCULAR HGB CONC 31.3 g/dL (32.0-36.0); MEAN CORPUSCULAR VOLUME 89.7 fL (79-99); MONOCYTES % (AUTO) 7.6 % (3.0-13.0); NUCLEATED RED BLOOD CELLS 1.1 % (0.0-0.19); PLATELET COUNT (AUTO) 190 K/uL (130-400); RED BLOOD CELL COUNT(AUTO) 3.39 MIL/uL (4.00-5.50); RED CELL DISTRIBUTION WIDTH 19.8 % (11.0-15.5); WHITE BLOOD COUNT (AUTO) 17.6 K/uL (4.8-10.8)
[2021-02-25 03:55] LABS: BILIRUBIN,TOTAL 0.6 mg/dL (0.2-1.0); POTASSIUM 4.2 mmol/L (3.5-5.1); TOTAL PROTEIN, SERUM 6.3 g/dL (6.0-8.3)
[2021-02-25 04:02] LABS: CREATININE 1.2 mg/dL (0.5-1.5)
[2021-02-25] MEDS: FUROSEMIDE 40MG VIAL IV SCH ×2 (04:54→16:00)
[2021-02-25] MEDS: ENOXAPARIN SODIUM 30 MG/0.3 ML SQ SCH (08:18)
[2021-02-25] MEDS: MEROPENEM 1 GM VIAL IVP SCH ×2 (08:19→19:54)
[2021-02-25] MEDS: KCL 20 MEQ ERTAB PO SCH ×2 (08:33→19:51)
[2021-02-25] MEDS: AMIODARONE 200 MG TABLET PO SCH (08:36)
[2021-02-25] MEDS: SPIRONOLACTONE 25 MG TAB PEG SCH ×2 (08:36→19:55)
[2021-02-25] MEDS: BALSAM PERU/CASTOR OIL 60 GM TUBE TP SCH ×2 (08:55→20:40)
[2021-02-25] MEDS: ACETAZOLAMIDE SODIUM 500 MG VIAL IV SCH (09:23)
[2021-02-25] MEDS: ACETYLCYSTEINE 10% 100MG/ML 4ML VIAL IH SCH ×3 (14:00→21:50)
[2021-02-25] MEDS: FLUOXETINE HCL 20 MG CAPSULE PEG SCH (19:51)
[2021-02-26] VITALS (21 sets, daily range): BP systolic 76–124; BP diastolic 45–68
[2021-02-26] MEDS: ERYTHROMYCIN BASE 250 MG TABLET PEG SCH ×3 (00:06→11:20)
[2021-02-26] MEDS: INSULIN HUMULIN R 100 UNIT/ML 3ML SQ SCH ×5 (00:10→23:23)
[2021-02-26] MEDS: ACETYLCYSTEINE 10% 100MG/ML 4ML VIAL IH SCH ×4 (02:41→14:00)
[2021-02-26] MEDS: IPRATROPIUM 0.5 MG/2.5 ML INH IH SCH ×6 (02:41→22:04)
[2021-02-26] MEDS: FUROSEMIDE 40MG VIAL IV SCH ×2 (04:30→13:32)
[2021-02-26 04:33] LABS: BASOPHILS % (AUTO) 0.6 % (0.0-5.0); EOSINOPHILS % (AUTO) 4.5 % (0.0-8.0); HEMATOCRIT 29.8 % (36-48); LYMPHOCYTES % (AUTO) 20.6 % (21.0-51.0); MEAN CORPUSCULAR HEMOGLOBIN 27.5 pg (27.0-33.0); MEAN CORPUSCULAR HGB CONC 31.2 g/dL (32.0-36.0); MEAN CORPUSCULAR VOLUME 88.2 fL (79-99); MONOCYTES % (AUTO) 7.6 % (3.0-13.0); NEUTROPHILS % (AUTO) 60.2 % (40.0-77.0); NUCLEATED RED BLOOD CELLS 0.3 % (0.0-0.19); PLATELET COUNT (AUTO) 190 K/uL (130-400); RED BLOOD CELL COUNT(AUTO) 3.38 MIL/uL (4.00-5.50); RED CELL DISTRIBUTION WIDTH 19.4 % (11.0-15.5); WHITE BLOOD COUNT (AUTO) 14.5 K/uL (4.8-10.8)
[2021-02-26 04:40] LABS: ALBUMIN 1.9 g/dL (3.5-5.0); BILIRUBIN,TOTAL 0.5 mg/dL (0.2-1.0); CREATININE 1.2 mg/dL (0.5-1.5); POTASSIUM 3.9 mmol/L (3.5-5.1); TOTAL PROTEIN, SERUM 6.1 g/dL (6.0-8.3)
[2021-02-26] MEDS: MEROPENEM 1 GM VIAL IVP SCH ×2 (08:30→20:19)
[2021-02-26] MEDS: ENOXAPARIN SODIUM 30 MG/0.3 ML SQ SCH (08:31)
[2021-02-26] MEDS: BALSAM PERU/CASTOR OIL 60 GM TUBE TP SCH ×2 (08:31→20:21)
[2021-02-26] MEDS: KCL 20 MEQ ERTAB PO SCH ×3 (08:31→22:03)
[2021-02-26] MEDS: AMIODARONE 200 MG TABLET PO SCH (08:31)
[2021-02-26] MEDS: ACETAZOLAMIDE SODIUM 500 MG VIAL IV SCH (09:00)
[2021-02-26] MEDS: SPIRONOLACTONE 25 MG TAB PEG SCH (09:00)
[2021-02-26] MEDS ORDERED: MIDODRINE HCL 5 MG TABLET ONE (09:17)
[2021-02-26] MEDS: MIDODRINE HCL 5 MG TABLET PO SCH ×2 (13:11→20:19)
[2021-02-26] MEDS ORDERED: ALBUMIN (HUMAN) 25% 100 ML IV PRN (14:00)
[2021-02-26] MEDS ORDERED: LACTATED RINGERS 1000ML 1,000 ML IV SCH (14:30)
[2021-02-26] MEDS: FLUOXETINE HCL 20 MG CAPSULE PEG SCH (20:21)
[2021-02-27] VITALS (16 sets, daily range): BP systolic 101–120; BP diastolic 54–69
[2021-02-27] MEDS: IPRATROPIUM 0.5 MG/2.5 ML INH IH SCH ×5 (02:50→18:58)
[2021-02-27] MEDS: INSULIN HUMULIN R 100 UNIT/ML 3ML SQ SCH ×3 (06:00→18:17)
[2021-02-27 06:34] LABS: HEMATOCRIT 29.2 % (36-48); MEAN CORPUSCULAR HEMOGLOBIN 27.7 pg (27.0-33.0); MEAN CORPUSCULAR HGB CONC 31.8 g/dL (32.0-36.0); MEAN CORPUSCULAR VOLUME 86.9 fL (79-99); NUCLEATED RED BLOOD CELLS 0.7 % (0.0-0.19); RED BLOOD CELL COUNT(AUTO) 3.36 MIL/uL (4.00-5.50); RED CELL DISTRIBUTION WIDTH 19.4 % (11.0-15.5); WHITE BLOOD COUNT (AUTO) 13.7 K/uL (4.8-10.8)
[2021-02-27 06:47] LABS: ALBUMIN 2.3 g/dL (3.5-5.0); BILIRUBIN,TOTAL 0.7 mg/dL (0.2-1.0); TOTAL PROTEIN, SERUM 6.1 g/dL (6.0-8.3)
[2021-02-27 06:56] LABS: ABG BASE EXCESS 2.1 mmol/L (-2.0-3.0); ABG HCO3 25.8 mmol/L (21.0-28.0); ABG OXYGEN SATURATION 96.8 % (95.0-99.0); ABG PCO2 37 mmHg (32-45)
[2021-02-27] MEDS ORDERED: TORSEMIDE 20 MG TAB PO SCH (09:00)
[2021-02-27] MEDS: MEROPENEM 1 GM VIAL IVP SCH (10:10)
[2021-02-27] MEDS: KCL 20 MEQ ERTAB PO SCH (10:11)
[2021-02-27] MEDS: AMIODARONE 200 MG TABLET PO SCH (10:11)
[2021-02-27] MEDS: MIDODRINE HCL 5 MG TABLET PO SCH ×2 (10:11→15:45)
[2021-02-27] MEDS: ENOXAPARIN SODIUM 30 MG/0.3 ML SQ SCH (10:12)
[2021-02-27] MEDS: BALSAM PERU/CASTOR OIL 60 GM TUBE TP SCH (10:12)
[2021-02-27] MEDS ORDERED: DICYCLOMINE HCL 20 MG TAB PO PRN (11:00)
[2021-04-02] MEDS ORDERED: SERT-439 PO (22:26)
[2021-04-02] MEDS ORDERED: MONT-39 PO (22:26)
[2021-04-02] MEDS ORDERED: HYDR50TA PO (22:26)
[2021-04-02] MEDS ORDERED: CLON0.1T PO (22:26)
[2021-04-02] MEDS ORDERED: GEMF600T89 PO (22:26)
[2021-04-02] MEDS ORDERED: SIMV-46 PO (22:26)
[2021-04-02] MEDS ORDERED: AEC81 PO (22:26)
== END 2021-02-27 19:15 | DRG 4 ==
LOC: EDH 10:41 → EDHIP 10:42 → 2DH 21:03 → 2CV 12-30 17:00 → 2AH 12-30 17:22 → 2BH 01-02 15:01 → 2DH 02-20 00:20
PROVIDERS: ADMIT Internal Medicine Infectious Disease; ATTEND Internal Medicine Infectious Disease
PROC: 0B110F4 Bypass Trachea to Cutaneous with Tracheostomy Device, Open Approach (ICD-10-PCS; principal; 2020-12-29)
PROC: 5A0935A Assistance with Respiratory Ventilation, Less than 24 Consecutive Hours, High Flow/Velocity Cannula (ICD-10-PCS; 2020-12-29)
PROC: 5A0935A Assistance with Respiratory Ventilation, Less than 24 Consecutive Hours, High Flow/Velocity Cannula (ICD-10-PCS; 2020-12-30)
PROC: 5A1955Z Respiratory Ventilation, Greater than 96 Consecutive Hours (ICD-10-PCS; 2021-01-01)
PROC: 5A12012 Performance of Cardiac Output, Single, Manual (ICD-10-PCS; 2021-01-01)
PROC: 0BH17EZ Insertion of Endotracheal Airway into Trachea, Via Natural or Artificial Opening (ICD-10-PCS; 2021-01-01)
PROC: 5A09357 Assistance with Respiratory Ventilation, Less than 24 Consecutive Hours, Continuous Positive Airway Pressure (ICD-10-PCS; 2021-01-05)
PROC: 5A0935A Assistance with Respiratory Ventilation, Less than 24 Consecutive Hours, High Flow/Velocity Cannula (ICD-10-PCS; 2021-01-09)
PROC: 5A0935A Assistance with Respiratory Ventilation, Less than 24 Consecutive Hours, High Flow/Velocity Cannula (ICD-10-PCS; 2021-01-10)
PROC: 5A0935A Assistance with Respiratory Ventilation, Less than 24 Consecutive Hours, High Flow/Velocity Cannula (ICD-10-PCS; 2021-01-11)
PROC: 5A0935A Assistance with Respiratory Ventilation, Less than 24 Consecutive Hours, High Flow/Velocity Cannula (ICD-10-PCS; 2021-01-11)
PROC: 5A0935A Assistance with Respiratory Ventilation, Less than 24 Consecutive Hours, High Flow/Velocity Cannula (ICD-10-PCS; 2021-01-12)
PROC: 5A0935A Assistance with Respiratory Ventilation, Less than 24 Consecutive Hours, High Flow/Velocity Cannula (ICD-10-PCS; 2021-01-12)
PROC: 5A0935A Assistance with Respiratory Ventilation, Less than 24 Consecutive Hours, High Flow/Velocity Cannula (ICD-10-PCS; 2021-01-13)
PROC: 5A0935A Assistance with Respiratory Ventilation, Less than 24 Consecutive Hours, High Flow/Velocity Cannula (ICD-10-PCS; 2021-01-14)
PROC: 5A0935A Assistance with Respiratory Ventilation, Less than 24 Consecutive Hours, High Flow/Velocity Cannula (ICD-10-PCS; 2021-01-15)
PROC: 5A0935A Assistance with Respiratory Ventilation, Less than 24 Consecutive Hours, High Flow/Velocity Cannula (ICD-10-PCS; 2021-01-16)
PROC: 05HY33Z Insertion of Infusion Device into Upper Vein, Percutaneous Approach (ICD-10-PCS; 2021-01-16)
PROC: 02HV33Z Insertion of Infusion Device into Superior Vena Cava, Percutaneous Approach (ICD-10-PCS; 2021-01-22)
PROC: 0DH63UZ Insertion of Feeding Device into Stomach, Percutaneous Approach (ICD-10-PCS; 2021-01-24)
PROC: 30233N1 Transfusion of Nonautologous Red Blood Cells into Peripheral Vein, Percutaneous Approach (ICD-10-PCS; 2021-02-09)
DX: A41.89 Other specified sepsis (principal); U07.1 COVID-19; K72.00 Acute and subacute hepatic failure without coma; E43 Unspecified severe protein-calorie malnutrition; R65.21 Severe sepsis with septic shock; J80 Acute respiratory distress syndrome; E11.10 Type 2 diabetes mellitus with ketoacidosis without coma; J12.82 Pneumonia due to coronavirus disease 2019; I46.9 Cardiac arrest, cause unspecified; I49.01 Ventricular fibrillation; I50.23 Acute on chronic systolic (congestive) heart failure; I40.0 Infective myocarditis; J16.8 Pneumonia due to other specified infectious organisms; G72.81 Critical illness myopathy; D84.9 Immunodeficiency, unspecified; G93.40 Encephalopathy, unspecified; I47.2 Ventricular tachycardia; E87.0 Hyperosmolality and hypernatremia; E87.3 Alkalosis; Z68.42 Body mass index [BMI] 45.0-49.9, adult; J44.0 Chronic obstructive pulmonary disease with (acute) lower respiratory infection; N17.9 Acute kidney failure, unspecified; E66.2 Morbid (severe) obesity with alveolar hypoventilation; G72.0 Drug-induced myopathy; K83.09 Other cholangitis; I13.0 Hypertensive heart and chronic kidney disease with heart failure and stage 1 through stage 4 chronic kidney disease, or unspecified chronic kidney disease; N39.0 Urinary tract infection, site not specified; L89.152 Pressure ulcer of sacral region, stage 2; B95.2 Enterococcus as the cause of diseases classified elsewhere; B96.89 Other specified bacterial agents as the cause of diseases classified elsewhere; D64.9 Anemia, unspecified; D69.6 Thrombocytopenia, unspecified; E78.00 Pure hypercholesterolemia, unspecified; E78.5 Hyperlipidemia, unspecified; E86.0 Dehydration; E87.5 Hyperkalemia; I48.91 Unspecified atrial fibrillation; R79.89 Other specified abnormal findings of blood chemistry; B96.4 Proteus (mirabilis) (morganii) as the cause of diseases classified elsewhere; E11.22 Type 2 diabetes mellitus with diabetic chronic kidney disease; E87.6 Hypokalemia; F32.A Depression, unspecified; J84.10 Pulmonary fibrosis, unspecified; K81.9 Cholecystitis, unspecified; K82.8 Other specified diseases of gallbladder; M40.209 Unspecified kyphosis, site unspecified; R13.12 Dysphagia, oropharyngeal phase; T38.0X5A Adverse effect of glucocorticoids and synthetic analogues, initial encounter; Z66 Do not resuscitate; T50.2X5A Adverse effect of carbonic-anhydrase inhibitors, benzothiadiazides and other diuretics, initial encounter; Y92.89 Other specified places as the place of occurrence of the external cause; Z88.2 Allergy status to sulfonamides; Z88.8 Allergy status to other drugs, medicaments and biological substances; Z79.4 Long term (current) use of insulin; Z85.3 Personal history of malignant neoplasm of breast; Z86.39 Personal history of other endocrine, nutritional and metabolic disease; Z89.519 Acquired absence of unspecified leg below knee; Z86.79 Personal history of other diseases of the circulatory system; Z90.11 Acquired absence of right breast and nipple; Z90.710 Acquired absence of both cervix and uterus; Z99.2 Dependence on renal dialysis; Z74.01 Bed confinement status; Z83.3 Family history of diabetes mellitus; Z80.9 Family history of malignant neoplasm, unspecified; Z84.89 Family history of other specified conditions; Z82.49 Family history of ischemic heart disease and other diseases of the circulatory system
CPT/HCPCS: 36415; 36430; 36600; 43246; 71045; 71250; 71275; 74018; 74176; 76705; 78227; 80048; 80053; 80069; 80076; 80202; 81001; 81003; 82010; 82140; 82150; 82270; 82435; 82550; 82728; 82803; 82947; 82948; 83036; 83605; 83615; 83690; 83735; 83874; 83880; 84100; 84132; 84145; 84295; 84484; 85014; 85018; 85025; 85027; 85378; 85610; 85730; 86140; 86850; 86900; 86901; 86922; 86923; 87040; 87070; 87071; 87076; 87077; 87088; 87186; 87205; 87635; 87804; 92507; 92597; 92950; 93005; 93306; 93356; 93970; 94002; 94003; 94640; 94668; 97039; A4344; A9537; C1751; C1894; C9113; C9803; G0378; J0171; J0282; J0610; J0692; J0696; J1120; J1265; J1450; J1650; J1815; J1940; J2185; J2250; J2310; J2370; J2704; J2765; J2920; J2930; J2997; J3010; J3370; J3475; J3480; J3490; J7030; J7042; J7050; J7060; J7070; J7120; J7608; P9016; P9046; Q9967